=== PATIENT | female | born 1955 | race Caucasian/White ===

== ENCOUNTER 2025-01-26 08:59 | Outpatient (RCR) | payer MEDICARE, SELFPAY ==
[2025-01-26 09:28] VITALS: BP 136/95; PULSE 84; RESP 14; TEMP 36.1
--- NOTE | 2025-01-26 13:03 | HP.PCM_ITS ---
History of Present Illness Date of Service: 01/26/25 Chief Complaint: Left leg wound from trauma History of Wound: 69-year-old white female that fell down her carpeted steps December 25 had developed blood blisters over the left leg medially distal half both legs are swollen but the left leg now is more swollen than the right leg she has been trying to take care of them herself with just antibiotic ointments but then they opened and she is got dark and eschar on them and followed up with her family doctor that referred her here and started her on doxycycline told her to stay on it until seen. She is also diabetic and on insulin and Ozempic and other meds that would not interfere with treatment or healing. [facility] Home Medications ?Medication ?Instructions ?Recorded ?Last Taken ?Type atorvastatin 10 mg tablet 10 mg PO DAILY 01/26/25 Unkn own History blood sugar diagnostic (OneTouch 01/26/25 Unknown His tory Verio test strips) bupropion HCl 300 mg 24 hr tablet, 300 mg PO DAILY Unknown History extended release doxycycline hyclate 100 mg capsule 100 mg PO BID 01/26 Unknown History insulin NPH-regular 70-30 U-100 32 unit subcut .mornin g 01/26/25 Unknown History insulin 100 unit/mL subcutaneous pen (Humulin 70/30 U-100 KwikPen) levothyroxine 100 mcg tablet 100 mcg PO DAILY 01/26/25 Unknown History lisinopril 20 mg tablet 20 mg PO DAILY 01/26/25 Unkn own History semaglutide 1 mg/dose (4 mg/3 mL) 1 mg subcut QWEEK Unknown History subcutaneous pen injector (Ozempic) sertraline 100 mg tablet 200 mg PO DAILY 01/26/25 Unk nown History Allergy/AdvReac Type Severity Reaction Status Date / Time Penicillins Allergy Intermediate PT UNSURE Verified 01/26/25 10:12 OF REACTION ROS Constitutional Constitutional: Reports systems reviewed and no addt'l complaints, except as documented Eyes Eyes: Reports systems reviewed and no addt'l complaints, except as documented ENT HEENT: Reports systems reviewed and no addt'l complaints, except as documented Cardiovascular Cardiovascular: Reports systems reviewed and no addt'l complaints, except as documented Respiratory/Chest Respiratory/Chest: Reports systems reviewed and no addt'l complaints, except as documented Gastrointestinal Gastrointestinal: Reports systems reviewed and no addt'l complaints, except as documented Genitourinary Genitourinary: Reports systems reviewed and no addt'l complaints, except as documented Musculoskeletal Musculoskeletal: Reports systems reviewed and no addt'l complaints, except as documented Integumentary Integumentary: Reports wounds and other Details: 3 areas of wounds medial superior and inferior on the lower left leg. All positive depth with old blood that will have to be debrided out Neurologic Neurologic: Reports systems reviewed and no addt'l complaints, except as documented Psychiatric Psychiatric: Reports systems reviewed and no addt'l complaints, except as documented Endocrine Endocrinology: Reports systems reviewed and no addt'l complaints, except as documented Hematologic/Lymphatic Hematologic/Lymphatic: Reports systems reviewed and no addt'l complaints, except as documented Allergic/Immunologic Allergic/Immunologic: Reports systems reviewed and no addt'l complaints, except as documented Vital Signs Vital Signs Vital Signs: 01/26/25 09:28 Temperature 97 F L Temperature Source Oral Pulse Rate 84 Respiratory Rate 14 Blood Pressure 136/95 H Blood Pressure Mean 108 Blood Pressure Source Monitor Blood Pressure Position Sitting Blood Pressure Location Left Arm Physical Exam Const oriented x3 General Appearance: cooperative Exam Limitations: no limitations HEENT normocephalic Head and Scalp: normal to inspection Face and Sinus: normal facial exam Eyes General Eye: normal appearance of both eyes Neck full ROM General: normal visual inspection Resp normal respiratory effort Effort and Inspection: able to speak in complete sentences Auscultation: clear to auscultation bilaterally Cardio regular rate and regular rhythm Palpation: normal PMI Rate: regular rate Rhythm: regular rhythm GI Palpation: soft and no hepatosplenomegaly Back/Spine Cervical Spine: cervical ROM normal Thoracic Spine / Upper Back: normal to inspection Lumbar Spine / Lower Back: normal to inspection Extremity General Extremity: normal exam except as noted, edema and other findings Other Details: Open wounds x 3 left lower leg Skin no rashes or lesions noted Skin Narrative: Open wounds medial superior and inferior left lower leg with eschar and darkened erythema around the wound base. Legs are extremely edematous left greater than right. Neuro oriented x3 Psych Appearance: grossly normal Speech: normal speech Thought Content: normal thought content Judgement: judgement good Debridement Note Debridement Note Wound debrided: Medial left lower leg wound traumatic Type of Debridement: Excisional debridement Anesthesia Used: 5% Lidocaine Gel Depth: in the subcutaneous layer Percentage of wound debrided: 100 Instrument Used: 7mm curette, #15 blade and Forceps Tissue Removed: Devitalized tissue blood Severity: Fat Layer Exposed Amount of bleeding with debridement: None Bleeding Controlled with: Compression and gauze Patient tolerated procedure: Patient tolerated procedure well Post-Debridement Measurements and Additional Note: Post-Debridement Measurements/Treatment WC - Nurse 1 - General Ulcer Assessment Start: 01/26/25 09:09 Freq: Status: Active Protocol: KITTY Activity Type Activity Date Activity User E-sign Co-sign Detail Recorded Client Recorded Date Recorded By Document 01/26/25 09:28 ML [id number] 01/26/25 09:40 ML 01/26/25 09:28 WC - Today's Visit Information Type of service Initial Visit Arrival Mode Ambulatory Transfer Assistance None Patient Identification Verified (Name & Yes ) Patient Requires Transmission-Based No Precautions Vital Signs Temperature (97.8 F-99.1 F) 97 F L Temperature Source Oral Pulse Rate (60-100) 84 Respiratory Rate (12-18) 14 Respiratory rate source Observation Blood Pressure (90/60-120/80) 136/95 H Blood Pressure Mean 108 Source Monitor Position Sitting Blood Pressure Location Left Arm Pain Scale: 0-10 Numeric Is Patient Pain Free? No Lower Extremity Assessment/ Foot Assessment/ Toe Nail Assessment Left -Polpliteal Pulses Palpable Yes -Popliteal Doppler Multiphasic -Posterior Tibial Doppler Multiphasic -Hair Growth on Legs No -Hair Growth on Toes No -Temperature of Extremity Warm -Capillary Refill Less than 3 Seconds -Other Deformity No -Thick No -Discolored No -Deformed No -Improper Length & Hygeine No WC - Nurse 1 - General Ulcer Measurement Start: 01/26/25 09:09 Freq: Status: Active Protocol: Activity Type Activity Date Activity User E-sign Co-sign Detail Recorded Client Recorded Date Recorded By Document 01/26/25 09:28 ML [id number] 01/26/25 09:40 ML 01/26/25 09:28 Wound Center Nurse 1 LEFT INF LE -Current Size (cm) - Length 1 -Current Size (cm) - Width 1.2 -Current Size (cm) - Depth 0.5 -Total Square Cm 1.2 -Exudate Amt Large -Exudate Type Purulent -Slough/Fibrin Yes -Necrosis Amt Large (67-100%) -Necrotic Tissue Type Eschar -Texture (Renuka-wound Skin Appearance) Assessed -Moisture (Renuka-wound Skin Appearance) Assessed -Color (Renuka-wound Skin Appearance) Assessed -Temperature (Renuka-wound Skin No Abnormality Appearance) (Pt Warm) -Tenderness on Palpation (Renuka-wound No Skin Appearance) -Ulcer Cleansing Soap and Water -Foul Odor after Cleansing Yes -Anesthetic Used 4% Lidocaine Solution LEFT SUP LE -Current Size (cm) - Length 0.7 -Current Size (cm) - Width 1.2 -Current Size (cm) - Depth 0.5 -Total Square Cm 0.84 -Exudate Amt Large -Exudate Type Serous -Wound Margin Distinct, Outline Attached -Slough/Fibrin Yes -Necrosis Amt Large (67-100%) -Necrotic Tissue Type Eschar -Texture (Renuka-wound Skin Appearance) Assessed -Moisture (Renuka-wound Skin Appearance) Assessed -Color (Renuka-wound Skin Appearance) Assessed -Temperature (Renuka-wound Skin No Abnormality Appearance) (Pt Warm) -Tenderness on Palpation (Renuka-wound No Skin Appearance) -Ulcer Cleansing Soap and Water -Foul Odor after Cleansing Yes -Anesthetic Used 4% Lidocaine Solution LEFT MEDIAL CLUSTER LE -Current Size (cm) - Length 3 -Current Size (cm) - Width 3.9 -Current Size (cm) - Depth 0.5 -Total Square Cm 11.7 -Exudate Amt Large -Exudate Type Purulent -Wound Margin Distinct, Outline Attached -Slough/Fibrin Yes -Necrosis Amt Large (67-100%) -Necrotic Tissue Type Eschar -Texture (Renuka-wound Skin Appearance) Assessed -Moisture (Renuka-wound Skin Appearance) Assessed -Color (Renuka-wound Skin Appearance) Assessed -Temperature (Renuka-wound Skin No Abnormality Appearance) (Pt Warm) -Tenderness on Palpation (Renuka-wound No Skin Appearance) -Ulcer Cleansing Soap and Water -Foul Odor after Cleansing Yes -Anesthetic Used 4% Lidocaine Solution Right Calf (cm) 48.5 Right Ankle (cm) 28.5 Left Calf (cm) 51.4 Left Ankle (cm) 32.2 WC - Nurse 2 - General Ulcer CM Notes Start: 01/26/25 09:09 Freq: Status: Active Protocol: Activity Type Activity Date Activity User E-sign Co-sign Detail Recorded Client Recorded Date Recorded By Document 05/28/25 09:54 [facility] [id number] 01/26/25 10:16 [facility] 01/26/25 09:54 Wound Center Nurse 2 LEFT INF LE -Time 09:55 -Correct Patient Yes -Correct Side, Site, Position Yes -Correct Procedure Yes -Procedure Performed Yes -Type of Procedure Debridement -Clinical Debridement Muscle / Fascia -Tissue Removed Muscle,Fascia -Post Debridement (cm) - Length 1 -Post Debridement (cm) - Width 1.4 -Post Debridement (cm) - Depth 1.1 -Total Square (Post) (cm) 1.4 -Area of Debridement (cm) - Length 1 -Area of Debridement (cm) - Width 1.4 -Total Square (Area) (cm) 1.4 -Undermining/Tunneling Yes -Undermining/Tunneling Starts (O'clock 10 ) -Undermining/Tunneling Ends (O'clock) 4 -Maximum Distance (cm) 1.5 -Wound/Ulcer Outcome Not Healed -Ulcer Cleansing Rinsed/ Irrigated with Saline -Bleeding Controlled with Pressure -Treatment Response Procedure Tolerated Well -Debridement - Muscle / Fascia, 1st No 20sq cm LEFT SUP LE -Time 09:55 -Correct Patient Yes -Correct Side, Site, Position Yes -Correct Procedure Yes -Procedure Performed Yes -Type of Procedure Debridement -Clinical Debridement Muscle / Fascia -Tissue Removed Muscle,Fascia -Post Debridement (cm) - Length 0.6 -Post Debridement (cm) - Width 1.5 -Post Debridement (cm) - Depth 0.5 -Total Square (Post) (cm) 0.90 -Area of Debridement (cm) - Length 0.6 -Area of Debridement (cm) - Width 1.5 -Total Square (Area) (cm) 0.90 -Undermining/Tunneling Yes -Undermining/Tunneling Starts (O'clock 11 ) -Undermining/Tunneling Ends (O'clock) 1 -Wound/Ulcer Outcome Not Healed -Ulcer Cleansing Rinsed/ Irrigated with Saline -Foul Odor after Cleansing No -Bioengineered Tissue No -Bleeding Controlled with Pressure -Treatment Response Procedure Tolerated Well -Debridement - Muscle / Fascia, 1st Yes 20sq cm LEFT MEDIAL CLUSTER LE -Time 09:58 -Correct Patient Yes -Correct Side, Site, Position Yes -Correct Procedure Yes -Procedure Performed Yes -Type of Procedure Debridement -Clinical Debridement Muscle / Fascia -Tissue Removed Muscle,Fascia -Post Debridement (cm) - Length 3.3 -Post Debridement (cm) - Width 4.2 -Post Debridement (cm) - Depth 0.4 -Total Square (Post) (cm) 13.86 -Area of Debridement (cm) - Length 3.3 -Area of Debridement (cm) - Width 4.2 -Total Square (Area) (cm) 13.86 -Wound/Ulcer Outcome Not Healed -Bleeding Controlled with Pressure -Treatment Response Procedure Tolerated Well -Debridement - Muscle / Fascia, 1st No 20sq cm Pain Scale: 0-10 Numeric Is Patient Pain Free? Yes WC - Nurse 3 - General Ulcer D/C NN Start: 01/26/25 09:09 Freq: Status: Active Protocol: Activity Type Activity Date Activity User E-sign Co-sign Detail Recorded Client Recorded Date Recorded By Document 01/26/25 10:35 ML [id number] 01/26/25 10:38 ML 01/26/25 10:35 Wound Care Center Nurse 3 LEFT INF LE -Ulcer Cleansing Rinsed/ Irrigated with Saline -Primary Dressing Applied Nugauze, Iodoform 1/4in -Primary Dressing Covered/Secured with Dry Gauze & Roll Gauze, Secured with Tape -Nugauze, Iodoform 1/4 1 LEFT SUP LE -Ulcer Cleansing Rinsed/ Irrigated with Saline -Primary Dressing Applied Nugauze, Iodoform 1/4in -Primary Dressing Covered/Secured with Dry Gauze & Roll Gauze, Secured with Tape -Nugauze, Iodoform 1/4 0 LEFT MEDIAL CLUSTER LE -Ulcer Cleansing Rinsed/ Irrigated with Saline -Other Dressing .25% DAKINS SOAKED GAUZE -Primary Dressing Covered/Secured with Dry Gauze & Roll Gauze, Secured with Tape LLE -Tubular Bandage Double Layer -Size of Tubigrip Used Size F -Size F ($) 2 Pain Scale: 0-10 Numeric Is Patient Pain Free? Yes Additional Wound Wound debrided: Inferior left lower leg wound trauma Type of Debridement: Excisional debridement Anesthesia Used: 5% Lidocaine Gel Depth: Down to and including healthy tissue and in the subcutaneous layer Percentage of wound debrided: 100 Instrument Used: 7mm curette, #15 blade and Forceps Severity: Fat Layer Exposed Amount of bleeding with debridement: Mild Bleeding Controlled with: Compression and gauze Patient tolerated procedure: Patient tolerated procedure well Additional Wound Wound debrided: Superior left lower leg traumatic wound Laterality: Left Type of Debridement: Excisional debridement Anesthesia Used: 5% Lidocaine Gel Depth: Down to and including healthy tissue and in the subcutaneous layer Percentage of wound debrided: 100 Instrument Used: 7mm curette, #15 blade and Forceps Tissue Removed: Devitalized tissue and blood clots Severity: Fat Layer Exposed Amount of bleeding with debridement: Mild Bleeding Controlled with: Compression and gauze Patient tolerated procedure: Patient tolerated procedure well Assessment/Plan Assessment/Plan (1) Traumatic skin ulcer with fat layer exposed: CODE(S): L98.492 - Non-pressure chronic ulcer of skin of other sites with fat layer exposed PLAN: Wash all areas with antibacterial soap and water pack all wounds with Dakin soaked half-inch iodoform gauze in the undermining areas and in the wound itself then cover with ABD and [employer] obtained will call with results as they return Tubigrip double layer to left leg every day (2) Type 2 diabetes mellitus with hyperglycemia: CODE(S): E11.65 - Type 2 diabetes mellitus with hyperglycemia QUALIFIERS: 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
--- NOTE | 2025-01-26 15:09 | WC ---
PHOTO 01/26/25 MARKUS INF
--- NOTE | 2025-01-26 15:11 | WC ---
PHOTO 01/26/25 JESSEE SUP
--- NOTE | 2025-01-26 15:13 | WC ---
PHOTO 01/26/25 MARKUS GAMINO
--- NOTE | 2025-01-31 14:08 | WC ---
antibiotics added from [facility] [employer] - Ruben and flagyl; prescriptions called to [facility] - called pt and left VM to stop the doxycycline and that 2 new antibiotics were called in to her pharmacy. instructed to call if has any questions.
== END 2025-01-29 23:59 | disposition home or self-care (01) ==
LOC: WC 08:59
PROVIDERS: PCP Family Medicine; Referring Provider Family Medicine; Visit Provider Nurse Practitioner
DX: E11.622 Type 2 diabetes mellitus with other skin ulcer (principal); L97.822 Non-pressure chronic ulcer of other part of left lower leg with fat layer exposed; Z79.4 Long term (current) use of insulin; E11.65 Type 2 diabetes mellitus with hyperglycemia; E11.51 Type 2 diabetes mellitus with diabetic peripheral angiopathy without gangrene; M79.89 Other specified soft tissue disorders; Z79.85 Long-term (current) use of injectable non-insulin antidiabetic drugs; Z79.899 Other long term (current) drug therapy; R60.0 Localized edema
CPT/HCPCS: 11043; 87070; 87075; 87077; 87186; 87205; 99204; G0463

== ENCOUNTER 2025-02-23 09:00 | Outpatient (RCR) | payer MEDICARE, SELFPAY ==
[2025-01-30 00:45] VITALS: BP 136/95; PULSE 84; RESP 14; TEMP 36.1
[2025-02-02 09:16] VITALS: BP 120/63; PULSE 80; RESP 18; TEMP 36.1
--- NOTE | 2025-02-02 11:06 | PN.PCM_ITS ---
History of Present Illness Date of Service: 02/02/25 Chief Complaint: Left leg wound from trauma History of Wound: 69-year-old white female that fell down her carpeted steps December 25 had developed blood blisters over the left leg medially distal half both legs are swollen but the left leg now is more swollen than the right leg she has been trying to take care of them herself with just antibiotic ointments but then they opened and she is got dark and eschar on them and followed up with her family doctor that referred her here and started her on doxycycline told her to stay on it until seen. She is also diabetic and on insulin and Ozempic and other meds that would not interfere with treatment or healing. Progress of Wound: Culture came back positive for bacteria and 3 cocci's patient will be starting Cipro and Flagyl only this week. The wounds themselves are very clean they are measuring smaller undermining is almost gone already. We will apply for EpiFix for next weeks and should be on antibiotics for a week she still has 3 wounds the medial superior and inferior. All blood and slough is out of the wound base. We will continue using the quarter inch iodoform soaked with Dakin's and the smaller wounds inferior and superior and Dakin's soaked gauze in the superior in the medial wound. Subjective Subjective Wounds have improved will get patient started on her antibiotic and apply for EpiFix she is doing well patient is agreeable to plan Objective Data Objective Data Surrounding tissue looks less erythematous undermining is almost gone looks very good for infected legs that have not had antibiotics yet. We will add the Dakin's to the soaked iodoform to the wounds and see if that works better for her. Denies any fever chills. Did give her some samples of Alvarado to try that she should probably try some supplements to move this along better to help her fight infection. Vital Signs: Vital Signs Temp Pulse Resp BP 96.9 F L 80 18 120/63 02/02/25 09:16 02/02/25 09:16 02/02/25 09:16 02/02/25 09:16 Lab / Micro Data Attestation: I reviewed the patient's lab results. Debridement Note Debridement Note Wound debrided: Medial left lower leg wound traumatic Type of Debridement: Excisional debridement Anesthesia Used: 5% Lidocaine Gel Depth: in the subcutaneous layer Percentage of wound debrided: 100 Instrument Used: 7mm curette Tissue Removed: Devitalized tissue blood Severity: Fat Layer Exposed Amount of bleeding with debridement: None Bleeding Controlled with: Compression and gauze Patient tolerated procedure: Patient tolerated procedure well Post-Debridement Measurements and Additional Note: Post-Debridement Measurements/Treatment - Nurse 1 - General Ulcer Assessment Start: 02/02/25 09:16 Freq: Status: Active Protocol: KITTY Activity Type Activity Date Activity User E-sign Co-sign Detail Recorded Client Recorded Date Recorded By Document 02/02/25 09:16 DL [id number] 02/02/25 09:30 DL 02/02/25 09:16 - Today's Visit Information Type of service 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 Any new allergies or adverse reactions No Had a fall/change in ADL's that may No increase risk of falls Signs or symptoms of abuse and/or No neglect since last visit Have you been in the hospital since your No last visit? Has dressing in place as prescribed Yes Has compression in place as prescribed No Has offloadiing in place as prescribed N/A Experienced any changes in pain level or No management Pain Scale: 0-10 Numeric Is Patient Pain Free? Yes [facility] Nurse 1 - General Ulcer Measurement Start: 02/02/25 09:16 Freq: Status: Active Protocol: Activity Type Activity Date Activity User E-sign Co-sign Detail Recorded Client Recorded Date Recorded By Document 02/02/25 09:16 DL [id number] 02/02/25 09:30 DL 02/02/25 09:16 Wound Center Nurse 1 LEFT INF LE -Current Size (cm) - Length 1 -Current Size (cm) - Width 1.3 -Current Size (cm) - Depth 0.5 -Total Square Cm 1.3 -Photo Taken Yes -Undermining/Tunneling Starts (O'clock 10 ) -Undermining/Tunneling Ends (O'clock) 4 -Maximum Distance (cm) 0.6 -Exudate Amt Medium -Exudate Type Serosanguineous -Wound Margin Distinct, Outline Attached -Granulation Amt Large (67-100%) -Granulation Quality Red -Necrosis Amt Small (1-33%) -Necrotic Tissue Type Adherent Slough -Structure Exposed N/A -Texture (Renuka-wound Skin Appearance) Scarring -Moisture (Renuka-wound Skin Appearance) No Abnormality -Color (Renuka-wound Skin Appearance) Hemosiderin Staining -Temperature (Renuka-wound Skin No Abnormality Appearance) (Pt Warm) -Ulcer Cleansing Soap and Water -Foul Odor after Cleansing No -Anesthetic Used 4% Lidocaine Solution LEFT SUP LE -Current Size (cm) - Length 1 -Current Size (cm) - Width 1.2 -Current Size (cm) - Depth 0.5 -Total Square Cm 1.2 -Photo Taken Yes -Maximum Distance #2 (cm) 0.2 -Circular Undermining Yes -Granulation Amt Large (67-100%) -Granulation Quality Red -Necrosis Amt Small (1-33%) -Necrotic Tissue Type Adherent Slough -Structure Exposed N/A -Texture (Renuka-wound Skin Appearance) Scarring -Moisture (Renuka-wound Skin Appearance) No Abnormality -Color (Renuka-wound Skin Appearance) Hemosiderin Staining -Temperature (Renuka-wound Skin No Abnormality Appearance) (Pt Warm) -Tenderness on Palpation (Renuka-wound No Skin Appearance) -Ulcer Cleansing Soap and Water -Foul Odor after Cleansing No -Anesthetic Used 4% Lidocaine Solution LEFT MEDIAL CLUSTER LE -Current Size (cm) - Length 3.2 -Current Size (cm) - Width 3.8 -Current Size (cm) - Depth 1 -Total Square Cm 12.16 -Photo Taken Yes -Exudate Amt Medium -Exudate Type Serosanguineous -Wound Margin Distinct, Outline Attached -Granulation Amt Large (67-100%) -Granulation Quality Red -Necrosis Amt Small (1-33%) -Necrotic Tissue Type Adherent Slough -Structure Exposed N/A -Texture (Renuka-wound Skin Appearance) Scarring -Moisture (Renuka-wound Skin Appearance) No Abnormality -Color (Renuka-wound Skin Appearance) Hemosiderin Staining -Temperature (Renuka-wound Skin No Abnormality Appearance) (Pt Warm) -Tenderness on Palpation (Renuka-wound No Skin Appearance) -Ulcer Cleansing Soap and Water -Foul Odor after Cleansing No -Anesthetic Used 4% Lidocaine Solution Left Calf (cm) 46 Left Ankle (cm) 26.5 WC - Nurse 2 - General Ulcer CM Notes Start: 02/02/25 09:16 Freq: Status: Active Protocol: Activity Type Activity Date Activity User E-sign Co-sign Detail Recorded Client Recorded Date Recorded By Document 02/02/25 09:34 [facility] [id number] 02/02/25 09:44 [facility] 02/02/25 09:34 Wound Center Nurse 2 LEFT INF LE -Time 09:34 -Correct Patient Yes -Correct Side, Site, Position Yes -Correct Procedure Yes -Procedure Performed Yes -Type of Procedure Debridement -Clinical Debridement Muscle / Fascia -Tissue Removed Muscle,Fascia -Post Debridement (cm) - Length 1.2 -Post Debridement (cm) - Width 1.3 -Post Debridement (cm) - Depth 0.3 -Total Square (Post) (cm) 1.56 -Area of Debridement (cm) - Length 1.2 -Area of Debridement (cm) - Width 1.3 -Total Square (Area) (cm) 1.56 -Undermining/Tunneling Yes -Undermining/Tunneling Starts (O'clock 10 ) -Undermining/Tunneling Ends (O'clock) 2 -Maximum Distance (cm) 0.9 -Wound/Ulcer Outcome Not Healed -Ulcer Cleansing Rinsed/ Irrigated with Saline -Foul Odor after Cleansing No -Bioengineered Tissue No -Bleeding Controlled with Pressure -Treatment Response Procedure Tolerated Well -Debridement - Muscle / Fascia, 1st No 20sq cm LEFT SUP LE -Time 09:35 -Correct Patient Yes -Correct Side, Site, Position Yes -Correct Procedure Yes -Procedure Performed Yes -Type of Procedure Debridement -Clinical Debridement Muscle / Fascia -Tissue Removed Muscle,Fascia -Post Debridement (cm) - Length 1 -Post Debridement (cm) - Width 1.3 -Post Debridement (cm) - Depth 0.3 -Total Square (Post) (cm) 1.3 -Area of Debridement (cm) - Length 1 -Area of Debridement (cm) - Width 1.3 -Total Square (Area) (cm) 1.3 -Tunneling No -Undermining/Tunneling Yes -Undermining/Tunneling Starts (O'clock 11 ) -Undermining/Tunneling Ends (O'clock) 4 -Maximum Distance (cm) 0.4 -Wound/Ulcer Outcome Not Healed -Ulcer Cleansing Rinsed/ Irrigated with Saline -Foul Odor after Cleansing No -Bioengineered Tissue No -Bleeding Controlled with Pressure -Treatment Response Procedure Tolerated Well -Debridement - Muscle / Fascia, 1st No 20sq cm LEFT MEDIAL CLUSTER LE -Time 09:35 -Correct Patient Yes -Correct Side, Site, Position Yes -Correct Procedure Yes -Procedure Performed Yes -Type of Procedure Debridement -Clinical Debridement Muscle / Fascia -Tissue Removed Muscle,Fascia -Post Debridement (cm) - Length 3.7 -Post Debridement (cm) - Width 4 -Post Debridement (cm) - Depth 0.7 -Total Square (Post) (cm) 14.8 -Area of Debridement (cm) - Length 3.7 -Area of Debridement (cm) - Width 4 -Total Square (Area) (cm) 14.8 -Wound/Ulcer Outcome Not Healed -Ulcer Cleansing Rinsed/ Irrigated with Saline -Foul Odor after Cleansing No -Bioengineered Tissue No -Bleeding Controlled with Pressure -Treatment Response Procedure Tolerated Well -Debridement - Muscle / Fascia, 1st Yes 20sq cm Pain Scale: 0-10 Numeric Is Patient Pain Free? Yes WC - Nurse 3 - General Ulcer D/C NN Start: 02/02/25 09:16 Freq: Status: Active Protocol: Activity Type Activity Date Activity User E-sign Co-sign Detail Recorded Client Recorded Date Recorded By Document 02/02/25 10:02 DL [id number] 02/02/25 10:11 DL 02/02/25 10:02 Wound Care Center Nurse 3 LEFT INF LE -Ulcer Cleansing Soap and Water -Foul Odor after Cleansing No -Primary Dressing Applied Nugauze, Iodoform 1/4in -Other Dressing dakins moist iodoform -Primary Dressing Covered/Secured with Dry Gauze & Roll Gauze, Secured with Tape -Nugauze, Iodoform 1/4 1 LEFT SUP LE -Ulcer Cleansing Soap and Water -Foul Odor after Cleansing No -Other Dressing dakins moist 1/ 4 iodoform -Primary Dressing Covered/Secured with Dry Gauze & Roll Gauze, Secured with Tape LEFT MEDIAL CLUSTER LE -Ulcer Cleansing Soap and Water -Foul Odor after Cleansing No -Other Dressing dakins moistened gauze -Primary Dressing Covered/Secured with Dry Gauze & Roll Gauze, Secured with Tape LLE -Other tubigrip Treatment Response Procedure Tolerated Well Pain Scale: 0-10 Numeric Is Patient Pain Free? Yes WC - Visit Discharge Discharge Condition Stable Ambulatory Status Ambulatory Transportation Private Auto Additional Wound Wound debrided: Inferior left lower leg wound trauma Type of Debridement: Excisional debridement Anesthesia Used: 5% Lidocaine Gel Depth: Down to and including healthy tissue and in the subcutaneous layer Percentage of wound debrided: 100 Instrument Used: 5mm curette Severity: Fat Layer Exposed Amount of bleeding with debridement: Mild Bleeding Controlled with: Compression and gauze Patient tolerated procedure: Patient tolerated procedure well Additional Wound Wound debrided: Superior left lower leg traumatic wound Laterality: Left Type of Debridement: Excisional debridement Anesthesia Used: 5% Lidocaine Gel Depth: Down to and including healthy tissue and in the subcutaneous layer Percentage of wound debrided: 100 Instrument Used: 5mm curette Tissue Removed: Devitalized tissue and blood clots Severity: Fat Layer Exposed Amount of bleeding with debridement: Mild Bleeding Controlled with: Compression and gauze Patient tolerated procedure: Patient tolerated procedure well Assessment/Plan Assessment/Plan (1) Traumatic skin ulcer with fat layer exposed: CODE(S): L98.492 - Non-pressure chronic ulcer of skin of other sites with fat layer exposed PLAN: Wash all areas with antibacterial soap and water pack all wounds with Dakin soaked half-inch iodoform gauze in the undermining areas and in the wound itself then cover with ABD and Steven Cultures positive for bacteria and cocci patient started on Cipro and metronidazole Tubigrip double layer to left leg every day Will apply for EpiFix (2) Type 2 diabetes mellitus with hyperglycemia: CODE(S): E11.65 - Type 2 diabetes mellitus with hyperglycemia QUALIFIERS: Diabetes mellitus intermediate designer insulin use: without residential use Qualified Code(s): E11.65 - Type 2 diabetes mellitus with hyperglycemia (3) Lower extremity edema: CODE(S): R60.0 - Localized edema (4) Peripheral vascular disease: CODE(S): I73.9 - Peripheral vascular disease, unspecified
--- NOTE | 2025-02-02 14:12 | WC ---
PHOTO 02/02/25 LLE SUP/LLE MED/LLE INF
[2025-02-09 09:34] VITALS: BP 128/82; PULSE 92; RESP 18; TEMP 35.5
--- NOTE | 2025-02-09 10:47 | PCM.WC.PN ---
History of Present Illness Date of Service: 02/09/25 Chief Complaint: Left leg wound from trauma History of Wound: 69-year-old white female that fell down her carpeted steps December 25 had developed blood blisters over the left leg medially distal half both legs are swollen but the left leg now is more swollen than the right leg she has been trying to take care of them herself with just antibiotic ointments but then they opened and she is got dark and eschar on them and followed up with her family doctor that referred her here and started her on doxycycline told her to stay on it until seen. She is also diabetic and on insulin and Ozempic and other meds that would not interfere with treatment or healing. Progress of Wound: Culture came back positive for bacteria and 3 cocci's patient will be starting Cipro and Flagyl only this week. The wounds themselves are very clean they are measuring smaller undermining is almost gone already. We applied for EpiFix and was approved. All blood and slough is out of the wound base. We will apply EpiFix #1 and to the medial largest wound and continue with the wet-to-dry Dakin's packing the wounds on the smaller ones inferior and superior wounds. Subjective Subjective Patient is excited to start the epi fix and see how it works. And was instructed to get a cast cover so when she can shower and otherwise she is not to touch the bandage and she understands everything. Objective Data Objective Data Wounds appear card cleaner smaller less depth healing nicely will apply the EpiFix today and see how that works for the week patient is to get a cast cover to protect when showering we will continue packing the other smaller wounds but the larger wound will get the epi fix. Vital Signs: Vital Signs Temp Pulse Resp BP 96 F L 92 18 128/82 H 02/09/25 09:34 02/09/25 09:34 02/09/25 09:34 02/09/25 09:34 Lab / Micro Data Attestation: I reviewed the patient's lab results. Physical Exam Const oriented x3 General Appearance: cooperative Exam Limitations: no limitations HEENT normocephalic Head and Scalp: normal to inspection Face and Sinus: normal facial exam Eyes General Eye: normal appearance of both eyes Neck full ROM General: normal visual inspection Resp normal respiratory effort Effort and Inspection: able to speak in complete sentences Auscultation: clear to auscultation bilaterally Cardio regular rate and regular rhythm Palpation: normal PMI Rate: regular rate Rhythm: regular rhythm GI Palpation: soft and no hepatosplenomegaly Back/Spine Cervical Spine: cervical ROM normal Thoracic Spine / Upper Back: normal to inspection Lumbar Spine / Lower Back: normal to inspection Extremity General Extremity: normal exam except as noted, edema and other findings Other Details: Open wounds x 3 left lower leg Skin no rashes or lesions noted Skin Narrative: Open wounds medial superior and inferior left lower leg with eschar and darkened erythema around the wound base. Legs are extremely edematous left greater than right. Neuro oriented x3 Psych Appearance: grossly normal Speech: normal speech Thought Content: normal thought content Judgement: judgement good Debridement Note Debridement Note Wound debrided: Medial left lower leg wound traumatic Type of Debridement: Excisional debridement Anesthesia Used: 5% Lidocaine Gel Depth: in the subcutaneous layer Percentage of wound debrided: 100 Instrument Used: 7mm curette Tissue Removed: Devitalized tissue blood Severity: Fat Layer Exposed Amount of bleeding with debridement: None Bleeding Controlled with: Compression and gauze Patient tolerated procedure: Patient tolerated procedure well Post-Debridement Measurements and Additional Note: Post-Debridement Measurements/Treatment - Nurse 1 - General Ulcer Assessment Start: 02/02/25 09:16 Freq: Status: Active Protocol: KITTY Activity Type Activity Date Activity User E-sign Co-sign Detail Recorded Client Recorded Date Recorded By Document 02/02/25 09:16 DL [id number] 02/02/25 09:30 DL Document 02/09/25 09:34 RB [id number] 02/09/25 09:39 RB 02/02/25 02/09/25 09:16 09:34 - Today's Visit Information Type of service Follow-up Visit Follow-up Visit (Physician/ALCOHOLIC COUNSELOR (Physician/ALCOHOLIC COUNSELOR ) ) Arrival Mode Ambulatory Ambulatory Transfer Assistance None None Patient Identification Verified (Name & Yes Yes ) Patient Requires Transmission-Based No No Precautions Vital Signs Temperature (97.8 F-99.1 F) 96.9 F L 96 F L Temperature Source Temporal Temporal Pulse Rate (60-100) 80 92 Pulse Location Monitor Monitor Respiratory Rate (12-18) 18 18 Respiratory rate source Observation Observation Blood Pressure (90/60-120/80) 120/63 128/82 H Blood Pressure Mean (mm Hg) 82 97 Source Monitor Monitor Position Semi-Fowlers Blood Pressure Location Left Arm History Since Last Visit- (Skip if this is Patient's initial visit) Have you changed medications since your No No last visit? Any new allergies or adverse reactions No No Had a fall/change in ADL's that may No No increase risk of falls Signs or symptoms of abuse and/or No No neglect since last visit Have you been in the hospital since your No No last visit? Has dressing in place as prescribed Yes Yes Has compression in place as prescribed No Yes Has offloadiing in place as prescribed N/A No Experienced any changes in pain level or No No management Left Footwear Regular Shoe Right Footwear Regular Shoe Pain Scale: 0-10 Numeric Is Patient Pain Free? Yes Yes WC - Nurse 1 - General Ulcer Measurement Start: 02/02/25 09:16 Freq: Status: Active Protocol: Activity Type Activity Date Activity User E-sign Co-sign Detail Recorded Client Recorded Date Recorded By Document 02/02/25 09:16 DL [id number] 02/02/25 09:30 DL Document 02/09/25 09:34 RB [id number] 02/09/25 09:39 RB 02/02/25 02/09/25 09:16 09:34 Wound Center Nurse 1 LEFT INF LE -Combined with other wound No -Current Size (cm) - Length 1 1.1 -Current Size (cm) - Width 1.3 1 -Current Size (cm) - Depth 0.5 0.2 -Total Square Cm 1.3 1.1 -Photo Taken Yes Yes -Tunneling No -Undermining/Tunneling Yes -Undermining/Tunneling Starts (O'clock 10 10 ) -Undermining/Tunneling Ends (O'clock) 4 12 -Maximum Distance (cm) 0.6 0.4 -Circular Undermining No -Exudate Amt Medium Medium -Exudate Type Serosanguineous Serosanguineous -Wound Margin Distinct, Thickened & Outline Rolled Under Attached -Granulation Amt Large (67-100%) Medium (34-66%) -Granulation Quality Red [place] -Slough/Fibrin Yes -Necrosis Amt Small (1-33%) Medium (34-66%) -Necrotic Tissue Type Adherent Slough Adherent Slough -Structure Exposed N/A N/A -Texture (Renuka-wound Skin Appearance) Scarring Assessed -Moisture (Renuka-wound Skin Appearance) No Abnormality Assessed -Color (Renuka-wound Skin Appearance) Hemosiderin Assessed Staining -Temperature (Renuka-wound Skin No Abnormality No Abnormality Appearance) (Pt Warm) (Pt Warm) -Tenderness on Palpation (Renuka-wound No Skin Appearance) -Ulcer Cleansing Soap and Water Wound Cleanser -Foul Odor after Cleansing No No -Anesthetic Used 4% Lidocaine 5% Lidocaine Solution Gel LEFT SUP LE -Combined with other wound No -Current Size (cm) - Length 1 0.8 -Current Size (cm) - Width 1.2 1.2 -Current Size (cm) - Depth 0.5 0.2 -Total Square Cm 1.2 0.96 -Photo Taken Yes Yes -Tunneling No -Undermining/Tunneling No -Maximum Distance #2 (cm) 0.2 -Circular Undermining Yes No -Exudate Amt Medium -Exudate Type Serosanguineous -Wound Margin Thickened & Rolled Under -Granulation Amt Large (67-100%) Medium (34-66%) -Granulation Quality [place] -Slough/Fibrin Yes -Necrosis Amt Small (1-33%) Small (1-33%) -Necrotic Tissue Type Adherent Slough Adherent Slough -Structure Exposed N/A N/A -Texture (Renuka-wound Skin Appearance) Scarring Assessed -Moisture (Renuka-wound Skin Appearance) No Abnormality Assessed -Color (Renuka-wound Skin Appearance) Hemosiderin Assessed Staining -Temperature (Renuka-wound Skin No Abnormality No Abnormality Appearance) (Pt Warm) (Pt Warm) -Tenderness on Palpation (Renuka-wound No No Skin Appearance) -Ulcer Cleansing Soap and Water Wound Cleanser -Foul Odor after Cleansing No No -Anesthetic Used 4% Lidocaine 5% Lidocaine Solution Gel LEFT MEDIAL CLUSTER LE -Combined with other wound No -Current Size (cm) - Length 3.2 3.4 -Current Size (cm) - Width 3.8 3.4 -Current Size (cm) - Depth 1 1 -Total Square Cm 12.16 11.56 -Photo Taken Yes Yes -Tunneling No -Undermining/Tunneling No -Circular Undermining No -Exudate Amt Medium Large -Exudate Type Serosanguineous Serosanguineous -Wound Margin Distinct, Thickened & Outline Rolled Under Attached -Granulation Amt Large (67-100%) Medium (34-66%) -Granulation Quality [place] -Slough/Fibrin Yes -Necrosis Amt Small (1-33%) Small (1-33%) -Necrotic Tissue Type Adherent Slough Adherent Slough -Structure Exposed N/A N/A -Texture (Renuka-wound Skin Appearance) Scarring Assessed -Moisture (Renuka-wound Skin Appearance) No Abnormality Assessed -Color (Renuka-wound Skin Appearance) Hemosiderin Assessed Staining -Temperature (Renuka-wound Skin No Abnormality No Abnormality Appearance) (Pt Warm) (Pt Warm) -Tenderness on Palpation (Renuka-wound No No Skin Appearance) -Ulcer Cleansing Soap and Water Wound Cleanser -Foul Odor after Cleansing No No -Anesthetic Used 4% Lidocaine 5% Lidocaine Solution Gel Lower Limb Edema Present Yes Left Calf (cm) 46 47.2 Left Ankle (cm) 26.5 27.5 WC - Nurse 2 - General Ulcer CM Notes Start: 02/02/25 09:16 Freq: Status: Active Protocol: Activity Type Activity Date Activity User E-sign Co-sign Detail Recorded Client Recorded Date Recorded By Document 02/02/25 09:34 [facility] [id number] 02/02/25 09:44 [facility] Document 02/09/25 09:47 [facility] [id number] 02/09/25 10:05 [facility] 02/02/25 02/09/25 09:34 09:47 Wound Center Nurse 2 LEFT INF LE -Time 09:34 09:49 -Correct Patient Yes Yes -Correct Side, Site, Position Yes Yes -Correct Procedure Yes Yes -Procedure Performed Yes Yes -Type of Procedure Debridement Debridement -Clinical Debridement Muscle / Fascia Muscle / Fascia -Tissue Removed Muscle,Fascia Muscle,Fascia -Post Debridement (cm) - Length 1.2 1.1 -Post Debridement (cm) - Width 1.3 1.3 -Post Debridement (cm) - Depth 0.3 0.3 -Total Square (Post) (cm) 1.56 1.43 -Area of Debridement (cm) - Length 1.2 1.1 -Area of Debridement (cm) - Width 1.3 1.3 -Total Square (Area) (cm) 1.56 1.43 -Tunneling No -Undermining/Tunneling Yes No -Undermining/Tunneling Starts (O'clock 10 ) -Undermining/Tunneling Ends (O'clock) 2 -Maximum Distance (cm) 0.9 -Circular Undermining No -Wound/Ulcer Outcome Not Healed Not Healed -Ulcer Cleansing Rinsed/ Rinsed/ Irrigated with Irrigated with Saline Saline -Foul Odor after Cleansing No No -Bioengineered Tissue No -Bleeding Controlled with Pressure Pressure -Treatment Response Procedure Procedure Tolerated Well Tolerated Well -Debridement - Muscle / Fascia, 1st No Yes 20sq cm LEFT SUP LE -Time 09:52 -Correct Patient Yes Yes -Correct Side, Site, Position Yes Yes -Correct Procedure Yes Yes -Procedure Performed Yes Yes -Type of Procedure Debridement Debridement -Clinical Debridement Muscle / Fascia Muscle / Fascia -Tissue Removed Muscle,Fascia Muscle,Fascia -Post Debridement (cm) - Length 1 1 -Post Debridement (cm) - Width 1.3 1.3 -Post Debridement (cm) - Depth 0.3 0.3 -Total Square (Post) (cm) 1.3 1.3 -Area of Debridement (cm) - Length 1 1 -Area of Debridement (cm) - Width 1.3 1.3 -Total Square (Area) (cm) 1.3 1.3 -Tunneling No No -Undermining/Tunneling Yes No -Undermining/Tunneling Starts (O'clock 11 ) -Undermining/Tunneling Ends (O'clock) 4 -Maximum Distance (cm) 0.4 -Circular Undermining No -Wound/Ulcer Outcome Not Healed Not Healed -Ulcer Cleansing Rinsed/ Rinsed/ Irrigated with Irrigated with Saline Saline -Foul Odor after Cleansing No No -Bioengineered Tissue No No -Bleeding Controlled with Pressure Pressure -Treatment Response Procedure Procedure Tolerated Well Tolerated Well -Debridement - Muscle / Fascia, 1st No No 20sq cm LEFT MEDIAL CLUSTER LE -Time 09:51 -Correct Patient Yes Yes -Correct Side, Site, Position Yes Yes -Correct Procedure Yes Yes -Procedure Performed Yes Yes -Type of Procedure Debridement Debridement -Clinical Debridement Muscle / Fascia Muscle / Fascia -Tissue Removed Muscle,Fascia Muscle,Fascia -Post Debridement (cm) - Length 3.7 3.5 -Post Debridement (cm) - Width 4 3.7 -Post Debridement (cm) - Depth 0.7 1.1 -Total Square (Post) (cm) 14.8 12.95 -Area of Debridement (cm) - Length 3.7 3.5 -Area of Debridement (cm) - Width 4 3.7 -Total Square (Area) (cm) 14.8 12.95 -Tunneling No -Undermining/Tunneling No -Circular Undermining No -Wound/Ulcer Outcome Not Healed Not Healed -Ulcer Cleansing Rinsed/ Rinsed/ Irrigated with Irrigated with Saline Saline -Foul Odor after Cleansing No No -Bioengineered Tissue No No -Type of Bioengineered Tissue Epifix Mesh -Expiration Date 07/02/29 -Product Lot Number [id number] -Percent Used 100 -Lot number of Saline Used [id number] -Bleeding Controlled with Pressure Pressure -Treatment Response Procedure Procedure Tolerated Well Tolerated Well -Debridement - Muscle / Fascia, 1st Yes No 20sq cm -Apply Skin Sub - 1st 25 sq cm - Legs 1 -Epifix Mesh Application 1-4 (per sq 11 cm) Pain Scale: 0-10 Numeric Is Patient Pain Free? Yes Yes WC - Nurse 3 - General Ulcer D/C NN Start: 02/02/25 09:16 Freq: Status: Active Protocol: Activity Type Activity Date Activity User E-sign Co-sign Detail Recorded Client Recorded Date Recorded By Document 02/02/25 10:02 DL [id number] 02/02/25 10:11 DL Document 02/09/25 10:20 DL [id number] 02/09/25 10:22 DL 02/02/25 02/09/25 10:02 10:20 Wound Care Center Nurse 3 LEFT INF LE -Ulcer Cleansing Soap and Water Not Cleansed -Foul Odor after Cleansing No -Primary Dressing Applied Nugauze, Iodoform 1/4in -Other Dressing dakins moist EPIFIX iodoform -Primary Dressing Covered/Secured with Dry Gauze & Dry Gauze & Roll Gauze, Roll Gauze, Secured with Secured with Tape Tape -Other Covering ABD -Nugauze, Iodoform 1/4 1 LEFT SUP LE -Ulcer Cleansing Soap and Water -Foul Odor after Cleansing No No -Other Dressing dakins moist 1/ EPIFIX 4 iodoform -Primary Dressing Covered/Secured with Dry Gauze & Dry Gauze & Roll Gauze, Roll Gauze, Secured with Secured with Tape Tape -Other Covering ABD LEFT MEDIAL CLUSTER LE -Ulcer Cleansing Soap and Water -Foul Odor after Cleansing No -Other Dressing dakins EPIFIX moistened gauze -Primary Dressing Covered/Secured with Dry Gauze & Dry Gauze & Roll Gauze, Roll Gauze, Secured with Secured with Tape Tape -Other Covering ABD LLE -Tubular Bandage Double Layer -Size of Tubigrip Used Size E -Size E ($) 2 -Other tubigrip Treatment Response Procedure Procedure Tolerated Well Tolerated Well Pain Scale: 0-10 Numeric Is Patient Pain Free? Yes Yes WC - Visit Discharge Discharge Condition Stable Stable Ambulatory Status Ambulatory Ambulatory Transportation Private Auto Private Auto Additional Wound Wound debrided: Inferior left lower leg wound trauma Type of Debridement: Excisional debridement Anesthesia Used: 5% Lidocaine Gel Depth: Down to and including healthy tissue and in the subcutaneous layer Percentage of wound debrided: 100 Instrument Used: 5mm curette Severity: Fat Layer Exposed Amount of bleeding with debridement: Mild Bleeding Controlled with: Compression and gauze Patient tolerated procedure: Patient tolerated procedure well Additional Wound Wound debrided: Superior left lower leg traumatic wound Laterality: Left Type of Debridement: Excisional debridement Anesthesia Used: 5% Lidocaine Gel Depth: Down to and including healthy tissue and in the subcutaneous layer Percentage of wound debrided: 100 Instrument Used: 5mm curette Tissue Removed: Devitalized tissue and blood clots Severity: Fat Layer Exposed Amount of bleeding with debridement: Mild Bleeding Controlled with: Compression and gauze Patient tolerated procedure: Patient tolerated procedure well Assessment/Plan Assessment/Plan (1) Traumatic skin ulcer with fat layer exposed: CODE(S): L98.492 - Non-pressure chronic ulcer of skin of other sites with fat layer exposed PLAN: Wash only the inferior and superior wounds with antibacterial soap and water pack all wounds with Dakin soaked half-inch iodoform gauze in the undermining areas and in the wound itself then cover with ABD and Steven Continue taking Cipro and metronidazole Tubigrip double layer to left leg every day #1 EpiFix was applied to the medial wound base and covered with wound veil and Steri-Strips and a foam dressing covered. Patient was instructed to get a cast Cover to take showers. Patient was instructed not to touch any of the Steri-Strips or lower she is allowed to change the outside dressing if he gets soiled or wet. Patient instructed to follow-up in 1 week (2) Type 2 diabetes mellitus with hyperglycemia: CODE(S): E11.65 - Type 2 diabetes mellitus with hyperglycemia QUALIFIERS: Diabetes mellitus engraved roller inspector insulin use: without engraved roller inspector use Qualified Code(s): E11.65 - Type 2 diabetes mellitus with hyperglycemia (3) Lower extremity edema: CODE(S): R60.0 - Localized edema (4) Peripheral vascular disease: CODE(S): I73.9 - Peripheral vascular disease, unspecified
--- NOTE | 2025-02-09 14:06 | WC ---
PHOTO 02/07/25 LLE SUP/LLE INF
--- NOTE | 2025-02-09 14:10 | WC ---
PHOTO 02/07/25 Skinny ESCALANTE
[2025-02-16 09:10] VITALS: BP 130/57; PULSE 92; RESP 16; TEMP 36.2
--- NOTE | 2025-02-16 10:40 | PN.PCM_ITS ---
History of Present Illness Date of Service: 02/16/25 Chief Complaint: Left leg wound from trauma History of Wound: 69-year-old white female that fell down her carpeted steps December 25 had developed blood blisters over the left leg medially distal half both legs are swollen but the left leg now is more swollen than the right leg she has been trying to take care of them herself with just antibiotic ointments but then they opened and she is got dark and eschar on them and followed up with her family doctor that referred her here and started her on doxycycline told her to stay on it until seen. She is also diabetic and on insulin and Ozempic and other meds that would not interfere with treatment or healing. Progress of Wound: 1. Epi was applied and removed today and it looks phenomenal the depth is much improved. Culture came back positive for bacteria and 3 cocci's patient taking Cipro and Flagyl . The wounds themselves are very clean they are measuring smaller undermining is gone already. We we will apply #2 EpiFix . Subjective Subjective Patient is very pleased with outcomes Objective Data Objective Data So epi fix #1 is been a very successful the mounds of new tissue growing in that area is of the medial wound is very impressive. Also it is covering the fat layer that was exposed to Getting discolored. The other side wounds have no undermining or doing very well with her dressing changes. Patient is tolerant of her medications and is finishing them up. There is no sign of infection and the surrounding tissue is just flesh color and no redness or swelling noted Vital Signs: Vital Signs Temp Pulse Resp BP 97.2 F L 92 16 130/57 H 02/16/25 09:10 02/16/25 09:10 02/16/25 09:10 02/16/25 09:10 Physical Exam Const oriented x3 General Appearance: cooperative Exam Limitations: no limitations HEENT normocephalic Head and Scalp: normal to inspection Face and Sinus: normal facial exam Eyes General Eye: normal appearance of both eyes Neck full ROM General: normal visual inspection Resp normal respiratory effort Effort and Inspection: able to speak in complete sentences Auscultation: clear to auscultation bilaterally Cardio regular rate and regular rhythm Palpation: normal PMI Rate: regular rate Rhythm: regular rhythm GI Palpation: soft and no hepatosplenomegaly Back/Spine Cervical Spine: cervical ROM normal Thoracic Spine / Upper Back: normal to inspection Lumbar Spine / Lower Back: normal to inspection Extremity General Extremity: normal exam except as noted, edema and other findings Other Details: Open wounds x 3 left lower leg Skin no rashes or lesions noted Skin Narrative: Open wounds medial superior and inferior left lower leg with eschar and darkened erythema around the wound base. Legs are extremely edematous left greater than right. Neuro oriented x3 Psych Appearance: grossly normal Speech: normal speech Thought Content: normal thought content Judgement: judgement good Debridement Note Debridement Note Wound debrided: Medial left lower leg wound traumatic Type of Debridement: Excisional debridement Anesthesia Used: 5% Lidocaine Gel Depth: in the subcutaneous layer Percentage of wound debrided: 100 Instrument Used: 5mm curette Tissue Removed: Devitalized tissue blood Severity: Fat Layer Exposed Amount of bleeding with debridement: None Bleeding Controlled with: Compression and gauze Patient tolerated procedure: Patient tolerated procedure well Post-Debridement Measurements and Additional Note: Post-Debridement Measurements/Treatment - Nurse 1 - General Ulcer Assessment Start: 02/02/25 09:16 Freq: Status: Active Protocol: KITTY Activity Type Activity Date Activity User E-sign Co-sign Detail Recorded Client Recorded Date Recorded By Document 02/02/25 09:16 DL [id number] 02/02/25 09:30 DL Document 02/09/25 09:34 RB [id number] 02/09/25 09:39 RB Document 02/16/25 09:10 DL [id number] 02/16/25 09:20 DL 02/02/25 02/09/25 02/16/25 09:16 09:34 09:10 - Today's Visit Information Type of service Follow-up Visit Follow-up Visit Follow-up Visit (Physician/CONCRETE MIXER (Physician/CONCRETE MIXER (Physician/CONCRETE MIXER ) ) ) Arrival Mode Ambulatory Ambulatory Ambulatory Transfer Assistance None None None Patient Identification Verified (Name & Yes Yes Yes ) Patient Requires Transmission-Based No No No Precautions Vital Signs Temperature (97.8 F-99.1 F) 96.9 F L 96 F L 97.2 F L Temperature Source Temporal Temporal Temporal Pulse Rate (60-100) 80 92 92 Pulse Location Monitor Monitor Monitor Respiratory Rate (12-18) 18 18 16 Respiratory rate source Observation Observation Observation Blood Pressure (90/60-120/80) 120/63 128/82 H 130/57 H Blood Pressure Mean (mm Hg) 82 97 81 Source Monitor Monitor Monitor Position Semi-Fowlers Blood Pressure Location Left Arm History Since Last Visit- (Skip if this is Patient's initial visit) Have you changed medications since your No No No last visit? Any new allergies or adverse reactions No No No Had a fall/change in ADL's that may No No No increase risk of falls Signs or symptoms of abuse and/or No No No neglect since last visit Have you been in the hospital since your No No No last visit? Has dressing in place as prescribed Yes Yes Yes Has compression in place as prescribed No Yes Yes Has offloadiing in place as prescribed N/A No N/A Experienced any changes in pain level or No No No management Left Footwear Regular Shoe Right Footwear Regular Shoe Pain Scale: 0-10 Numeric Is Patient Pain Free? Yes Yes Yes WC - Nurse 1 - General Ulcer Measurement Start: 02/02/25 09:16 Freq: Status: Active Protocol: Activity Type Activity Date Activity User E-sign Co-sign Detail Recorded Client Recorded Date Recorded By Document 02/02/25 09:16 DL [id number] 02/02/25 09:30 DL Document 02/09/25 09:34 RB [id number] 02/09/25 09:39 RB Document 02/16/25 09:10 DL [id number] 02/16/25 09:20 DL 02/02/25 02/09/25 02/16/25 09:16 09:34 09:10 Wound Center Nurse 1 LEFT INF LE -Combined with other wound No -Current Size (cm) - Length 1 1.1 1 -Current Size (cm) - Width 1.3 1 1.4 -Current Size (cm) - Depth 0.5 0.2 0.1 -Total Square Cm 1.3 1.1 1.4 -Photo Taken Yes Yes Yes -Tunneling No -Undermining/Tunneling Yes -Undermining/Tunneling Starts (O'clock 10 10 ) -Undermining/Tunneling Ends (O'clock) 4 12 -Maximum Distance (cm) 0.6 0.4 -Circular Undermining No -Exudate Amt Medium Medium Medium -Exudate Type Serosanguineous Serosanguineous Serosanguineous -Wound Margin Distinct, Thickened & Distinct, Outline Rolled Under Outline Attached Attached -Granulation Amt Large (67-100%) Medium (34-66%) Large (67-100%) -Granulation Quality Red Fallis Red -Slough/Fibrin Yes -Necrosis Amt Small (1-33%) Medium (34-66%) Small (1-33%) -Necrotic Tissue Type Adherent Slough Adherent Slough Adherent Slough -Structure Exposed N/A N/A N/A -Texture (Renuka-wound Skin Appearance) Scarring Assessed Scarring -Moisture (Renuka-wound Skin Appearance) No Abnormality Assessed Maceration -Color (Renuka-wound Skin Appearance) Hemosiderin Assessed Hemosiderin Staining Staining -Temperature (Renuka-wound Skin No Abnormality No Abnormality No Abnormality Appearance) (Pt Warm) (Pt Warm) (Pt Warm) -Tenderness on Palpation (Renuka-wound No No Skin Appearance) -Ulcer Cleansing Soap and Water Wound Cleanser Soap and Water -Foul Odor after Cleansing No No No -Anesthetic Used 4% Lidocaine 5% Lidocaine 5% Lidocaine Solution Gel Gel LEFT SUP LE -Combined with other wound No -Current Size (cm) - Length 1 0.8 0.9 -Current Size (cm) - Width 1.2 1.2 1.3 -Current Size (cm) - Depth 0.5 0.2 0.1 -Total Square Cm 1.2 0.96 1.17 -Photo Taken Yes Yes Yes -Tunneling No -Undermining/Tunneling No -Maximum Distance #2 (cm) 0.2 -Circular Undermining Yes No -Exudate Amt Medium Medium -Exudate Type Serosanguineous Serosanguineous -Wound Margin Thickened & Distinct, Rolled Under Outline Attached -Granulation Amt Large (67-100%) Medium (34-66%) Medium (34-66%) -Granulation Quality Red Fallis Red -Slough/Fibrin Yes -Necrosis Amt Small (1-33%) Small (1-33%) Small (1-33%) -Necrotic Tissue Type Adherent Slough Adherent Slough Adherent Slough -Structure Exposed N/A N/A N/A -Texture (Renuka-wound Skin Appearance) Scarring Assessed Scarring -Moisture (Renuka-wound Skin Appearance) No Abnormality Assessed Maceration -Color (Renuka-wound Skin Appearance) Hemosiderin Assessed Hemosiderin Staining Staining -Temperature (Renuka-wound Skin No Abnormality No Abnormality No Abnormality Appearance) (Pt Warm) (Pt Warm) (Pt Warm) -Tenderness on Palpation (Renuka-wound No No Skin Appearance) -Ulcer Cleansing Soap and Water Wound Cleanser Soap and Water -Foul Odor after Cleansing No No No -Anesthetic Used 4% Lidocaine 5% Lidocaine 5% Lidocaine Solution Gel Gel LEFT MEDIAL CLUSTER LE -Combined with other wound No -Current Size (cm) - Length 3.2 3.4 3 -Current Size (cm) - Width 3.8 3.4 3.2 -Current Size (cm) - Depth 1 1 0.9 -Total Square Cm 12.16 11.56 9.6 -Photo Taken Yes Yes Yes -Tunneling No -Undermining/Tunneling No -Circular Undermining No -Exudate Amt Medium Large Medium -Exudate Type Serosanguineous Serosanguineous Serosanguineous -Wound Margin Distinct, Thickened & Distinct, Outline Rolled Under Outline Attached Attached -Granulation Amt Large (67-100%) Medium (34-66%) Large (67-100%) -Granulation Quality Red Fallis Red -Slough/Fibrin Yes -Necrosis Amt Small (1-33%) Small (1-33%) None Present (0 %) -Necrotic Tissue Type Adherent Slough Adherent Slough -Structure Exposed N/A N/A N/A -Texture (Renuka-wound Skin Appearance) Scarring Assessed Scarring -Moisture (Renuka-wound Skin Appearance) No Abnormality Assessed Maceration -Color (Renuka-wound Skin Appearance) Hemosiderin Assessed Hemosiderin Staining Staining -Temperature (Renuka-wound Skin No Abnormality No Abnormality No Abnormality Appearance) (Pt Warm) (Pt Warm) (Pt Warm) -Tenderness on Palpation (Renuka-wound No No No Skin Appearance) -Ulcer Cleansing Soap and Water Wound Cleanser Soap and Water -Foul Odor after Cleansing No No No -Anesthetic Used 4% Lidocaine 5% Lidocaine 5% Lidocaine Solution Gel Gel Lower Limb Edema Present Yes Left Calf (cm) 46 47.2 46 Left Ankle (cm) 26.5 27.5 26.5 WC - Nurse 2 - General Ulcer CM Notes Start: 02/02/25 09:16 Freq: Status: Active Protocol: Activity Type Activity Date Activity User E-sign Co-sign Detail Recorded Client Recorded Date Recorded By Document 02/02/25 09:34 [facility] [id number] 02/02/25 09:44 [facility] Document 02/09/25 09:47 [facility] [id number] 02/09/25 10:05 [facility] Document 02/16/25 09:28 [facility] [id number] 02/16/25 09:42 [facility] 02/02/25 02/09/25 02/16/25 09:34 09:47 09:28 Wound Center Nurse 2 LEFT INF LE -Time 09:34 09:49 09:28 -Correct Patient Yes Yes Yes -Correct Side, Site, Position Yes Yes Yes -Correct Procedure Yes Yes Yes -Procedure Performed Yes Yes Yes -Type of Procedure Debridement Debridement Debridement -Clinical Debridement Muscle / Fascia Muscle / Fascia Subcutaneous -Tissue Removed Muscle,Fascia Muscle,Fascia Subcutaneous -Post Debridement (cm) - Length 1.2 1.1 1 -Post Debridement (cm) - Width 1.3 1.3 1.4 -Post Debridement (cm) - Depth 0.3 0.3 0.2 -Total Square (Post) (cm) 1.56 1.43 1.4 -Area of Debridement (cm) - Length 1.2 1.1 1 -Area of Debridement (cm) - Width 1.3 1.3 1.4 -Total Square (Area) (cm) 1.56 1.43 1.4 -Tunneling No No -Undermining/Tunneling Yes No No -Undermining/Tunneling Starts (O'clock 10 ) -Undermining/Tunneling Ends (O'clock) 2 -Maximum Distance (cm) 0.9 -Circular Undermining No No -Wound/Ulcer Outcome Not Healed Not Healed Not Healed -Ulcer Cleansing Rinsed/ Rinsed/ Rinsed/ Irrigated with Irrigated with Irrigated with Saline Saline Saline -Foul Odor after Cleansing No No No -Bioengineered Tissue No No -Bleeding Controlled with Pressure Pressure Pressure -Treatment Response Procedure Procedure Procedure Tolerated Well Tolerated Well Tolerated Well -Debridement - Subq, 1st 20sq cm Yes -Debridement - Muscle / Fascia, 1st No Yes 20sq cm LEFT SUP LE -Time 09:35 09:52 09:29 -Correct Patient Yes Yes Yes -Correct Side, Site, Position Yes Yes Yes -Correct Procedure Yes Yes Yes -Procedure Performed Yes Yes Yes -Type of Procedure Debridement Debridement Debridement -Clinical Debridement Muscle / Fascia Muscle / Fascia Subcutaneous -Tissue Removed Muscle,Fascia Muscle,Fascia Subcutaneous -Post Debridement (cm) - Length 1 1 1 -Post Debridement (cm) - Width 1.3 1.3 1.3 -Post Debridement (cm) - Depth 0.3 0.3 0.2 -Total Square (Post) (cm) 1.3 1.3 1.3 -Area of Debridement (cm) - Length 1 1 1 -Area of Debridement (cm) - Width 1.3 1.3 1.3 -Total Square (Area) (cm) 1.3 1.3 1.3 -Tunneling No No No -Undermining/Tunneling Yes No No -Undermining/Tunneling Starts (O'clock 11 ) -Undermining/Tunneling Ends (O'clock) 4 -Maximum Distance (cm) 0.4 -Circular Undermining No No -Wound/Ulcer Outcome Not Healed Not Healed Not Healed -Ulcer Cleansing Rinsed/ Rinsed/ Rinsed/ Irrigated with Irrigated with Irrigated with Saline Saline Saline -Foul Odor after Cleansing No No No -Bioengineered Tissue No No No -Bleeding Controlled with Pressure Pressure Pressure -Treatment Response Procedure Procedure Procedure Tolerated Well Tolerated Well Tolerated Well -Debridement - Subq, 1st 20sq cm No -Debridement - Muscle / Fascia, 1st No No 20sq cm LEFT MEDIAL CLUSTER LE -Time 09:35 09:51 09:29 -Correct Patient Yes Yes Yes -Correct Side, Site, Position Yes Yes Yes -Correct Procedure Yes Yes Yes -Procedure Performed Yes Yes Yes -Type of Procedure Debridement Debridement Debridement -Clinical Debridement Muscle / Fascia Muscle / Fascia Muscle / Fascia -Tissue Removed Muscle,Fascia Muscle,Fascia Muscle,Fascia -Post Debridement (cm) - Length 3.7 3.5 3 -Post Debridement (cm) - Width 4 3.7 3.4 -Post Debridement (cm) - Depth 0.7 1.1 1.5 -Total Square (Post) (cm) 14.8 12.95 10.2 -Area of Debridement (cm) - Length 3.7 3.5 3 -Area of Debridement (cm) - Width 4 3.7 3.4 -Total Square (Area) (cm) 14.8 12.95 10.2 -Tunneling No No -Undermining/Tunneling No No -Circular Undermining No No -Wound/Ulcer Outcome Not Healed Not Healed Not Healed -Ulcer Cleansing Rinsed/ Rinsed/ Rinsed/ Irrigated with Irrigated with Irrigated with Saline Saline Saline -Foul Odor after Cleansing No No No -Bioengineered Tissue No No Yes -Type of Bioengineered Tissue Epifix Mesh Epifix Mesh -Expiration Date 07/02/29 07/02/29 -Product Lot Number [id number] -Percent Used 100 100 -Lot number of Saline Used [id number] -Bleeding Controlled with Pressure Pressure Pressure -Treatment Response Procedure Procedure Procedure Tolerated Well Tolerated Well Tolerated Well -Debridement - Muscle / Fascia, 1st Yes No No 20sq cm -Apply Skin Sub - 1st 25 sq cm - Legs 1 1 -Epifix Mesh Application 1-4 (per sq 11 11 cm) Pain Scale: 0-10 Numeric Is Patient Pain Free? Yes Yes Yes WC - Nurse 3 - General Ulcer D/C NN Start: 02/02/25 09:16 Freq: Status: Active Protocol: Activity Type Activity Date Activity User E-sign Co-sign Detail Recorded Client Recorded Date Recorded By Document 02/02/25 10:02 DL [id number] 02/02/25 10:11 DL Document 02/09/25 10:20 DL [id number] 02/09/25 10:22 DL Document 02/16/25 09:59 DL [id number] 02/16/25 10:00 DL 02/02/25 02/09/25 02/16/25 10:02 10:20 09:59 Wound Care Center Nurse 3 LEFT INF LE -Ulcer Cleansing Soap and Water Not Cleansed -Foul Odor after Cleansing No No -Primary Dressing Applied Nugauze, Aquacel Extra Iodoform 1/4in -Other Dressing dakins moist EPIFIX ABD iodoform -Primary Dressing Covered/Secured with Dry Gauze & Dry Gauze & Dry Gauze & Roll Gauze, Roll Gauze, Roll Gauze, Secured with Secured with Secured with Tape Tape Tape -Other Covering ABD -Aquacel Extra 1 -Nugauze, Iodoform 1/4 1 LEFT SUP LE -Ulcer Cleansing Soap and Water -Foul Odor after Cleansing No No No -Other Dressing dakins moist 1/ EPIFIX aquacel ex/ ABD 4 iodoform -Primary Dressing Covered/Secured with Dry Gauze & Dry Gauze & Dry Gauze & Roll Gauze, Roll Gauze, Roll Gauze, Secured with Secured with Secured with Tape Tape Tape -Other Covering ABD LEFT MEDIAL CLUSTER LE -Ulcer Cleansing Soap and Water Not Cleansed -Foul Odor after Cleansing No -Other Dressing dakins EPIFIX aquacel ex/ABD moistened gauze -Primary Dressing Covered/Secured with Dry Gauze & Dry Gauze & Dry Gauze & Roll Gauze, Roll Gauze, Roll Gauze, Secured with Secured with Secured with Tape Tape Tape -Other Covering ABD LLE -Tubular Bandage Double Layer Double Layer -Size of Tubigrip Used Size E Size E -Size E ($) 2 2 -Other tubigrip Treatment Response Procedure Procedure Tolerated Well Tolerated Well Pain Scale: 0-10 Numeric Is Patient Pain Free? Yes Yes Yes WC - Visit Discharge Discharge Condition Stable Stable Stable Ambulatory Status Ambulatory Ambulatory Ambulatory,Cane Transportation Private Auto Private Auto Private Auto Additional Wound Wound debrided: Inferior left lower leg wound trauma Type of Debridement: Excisional debridement Anesthesia Used: 5% Lidocaine Gel Depth: Down to and including healthy tissue and in the subcutaneous layer Percentage of wound debrided: 100 Tissue Removed: Fibrin Severity: Fat Layer Exposed Amount of bleeding with debridement: Mild Bleeding Controlled with: Compression and gauze Patient tolerated procedure: Patient tolerated procedure well Additional Wound Wound debrided: Superior left lower leg traumatic wound Laterality: Left Type of Debridement: Excisional debridement Anesthesia Used: 5% Lidocaine Gel Depth: Down to and including healthy tissue and in the subcutaneous layer Percentage of wound debrided: 100 Instrument Used: 5mm curette Tissue Removed: Fibrin Severity: Fat Layer Exposed Amount of bleeding with debridement: Mild Bleeding Controlled with: Compression and gauze Patient tolerated procedure: Patient tolerated procedure well Assessment/Plan Assessment/Plan (1) Traumatic skin ulcer with fat layer exposed: CODE(S): L98.492 - Non-pressure chronic ulcer of skin of other sites with fat layer exposed PLAN: Wash only the inferior and superior wounds with antibacterial soap and water pack all wounds with Dakin soaked half-inch iodoform gauze in the wound itself then cover with ABD and Steven Continue taking Cipro and metronidazole Tubigrip double layer to left leg every day #2 EpiFix was applied to the medial wound base and covered with wound veil and Steri-Strips and a foam dressing covered. Patient was instructed to get a cast Cover to take showers. Patient was instructed not to touch any of the Steri- Strips or lower she is allowed to change the outside dressing if he gets soiled or wet. Patient instructed to follow-up in 1 week (2) Type 2 diabetes mellitus with hyperglycemia: CODE(S): E11.65 - Type 2 diabetes mellitus with hyperglycemia QUALIFIERS: Diabetes mellitus long term care social worker insulin use: without long term care social worker use Qualified Code(s): E11.65 - Type 2 diabetes mellitus with hyperglycemia (3) Lower extremity edema: CODE(S): R60.0 - Localized edema (4) Peripheral vascular disease: CODE(S): I73.9 - Peripheral vascular disease, unspecified
--- NOTE | 2025-02-17 09:37 | WC ---
PHOTO 02/16/25 MARKUS GAMINO
--- NOTE | 2025-02-17 09:41 | WC ---
PHOTO 02/16/25 JESSEE SUP
[2025-02-23 09:18] VITALS: BP 137/71; PULSE 79; RESP 18; TEMP 36.2
--- NOTE | 2025-02-23 11:10 | PCM.WC.PN ---
History of Present Illness Date of Service: 02/23/25 Chief Complaint: Left leg wound from trauma History of Wound: 69-year-old white female that fell down her carpeted steps December 25 had developed blood blisters over the left leg medially distal half both legs are swollen but the left leg now is more swollen than the right leg she has been trying to take care of them herself with just antibiotic ointments but then they opened and she is got dark and eschar on them and followed up with her family doctor that referred her here and started her on doxycycline told her to stay on it until seen. She is also diabetic and on insulin and Ozempic and other meds that would not interfere with treatment or healing. Progress of Wound: 1. Epi was applied and it looks phenomenal the depth is much improved. Culture came back positive for bacteria and 3 cocci's patient taking Cipro and Flagyl . The wounds themselves are very clean they are measuring smaller undermining is gone already. We we will apply #3 EpiFix . Subjective Subjective Patient took pictures and is very pleased with outcome so far Objective Data Objective Data The medial wound is more shallow the fat layer has been covered mounds of new tissue are obvious the edges are flat and there is no rolling of the edges at all looks very nice filling and and its about half the depth it was when we started. The inferior superior wounds are both healing nicely and are flat just needs skin to cover basically. All undermining is gone the skin is nice and supple around the wound and is flesh-colored is not erythematous at all. Vital Signs: Vital Signs Temp Pulse Resp BP 97.2 F L 79 18 137/71 H 02/23/25 09:18 02/23/25 09:18 02/23/25 09:18 02/23/25 09:18 Lab / Micro Data Attestation: I reviewed the patient's lab results. Physical Exam Const oriented x3 General Appearance: cooperative Exam Limitations: no limitations HEENT normocephalic Head and Scalp: normal to inspection Face and Sinus: normal facial exam Eyes General Eye: normal appearance of both eyes Neck full ROM General: normal visual inspection Resp normal respiratory effort Effort and Inspection: able to speak in complete sentences Auscultation: clear to auscultation bilaterally Cardio regular rate and regular rhythm Palpation: normal PMI Rate: regular rate Rhythm: regular rhythm GI Palpation: soft and no hepatosplenomegaly Back/Spine Cervical Spine: cervical ROM normal Thoracic Spine / Upper Back: normal to inspection Lumbar Spine / Lower Back: normal to inspection Extremity General Extremity: normal exam except as noted, edema and other findings Other Details: Open wounds x 3 left lower leg Skin no rashes or lesions noted Skin Narrative: Open wounds medial superior and inferior left lower leg with eschar and darkened erythema around the wound base. Legs are extremely edematous left greater than right. Neuro oriented x3 Psych Appearance: grossly normal Speech: normal speech Thought Content: normal thought content Judgement: judgement good Debridement Note Debridement Note Wound debrided: Medial left lower leg wound traumatic Type of Debridement: Excisional debridement Anesthesia Used: 5% Lidocaine Gel Depth: in the subcutaneous layer Percentage of wound debrided: 100 Instrument Used: 5mm curette Tissue Removed: Fibrin Severity: Fat Layer Exposed Amount of bleeding with debridement: None Bleeding Controlled with: Compression and gauze Patient tolerated procedure: Patient tolerated procedure well Post-Debridement Measurements and Additional Note: Post-Debridement Measurements/Treatment - Nurse 1 - General Ulcer Assessment Start: 02/02/25 09:16 Freq: Status: Active Protocol: .WeOweDOMINIC Activity Type Activity Date Activity User E-sign Co-sign Detail Recorded Client Recorded Date Recorded By Document 02/02/25 09:16 DL [id number] 02/02/25 09:30 DL Document 02/09/25 09:34 RB [id number] 02/09/25 09:39 RB Document 02/16/25 09:10 DL [id number] 02/16/25 09:20 DL Document 02/23/25 09:18 DL [id number] 02/23/25 09:28 DL 02/02/25 02/09/25 02/16/25 09:16 09:34 09:10 - Today's Visit Information Type of service Follow-up Visit Follow-up Visit Follow-up Visit (Physician/INDUSTRIAL EDUCATION INSTRUCTOR (Physician/INDUSTRIAL EDUCATION INSTRUCTOR (Physician/INDUSTRIAL EDUCATION INSTRUCTOR ) ) ) Arrival Mode Ambulatory Ambulatory Ambulatory Transfer Assistance None None None Patient Identification Verified (Name & Yes Yes Yes ) Patient Requires Transmission-Based No No No Precautions Vital Signs Temperature (97.8 F-99.1 F) 96.9 F L 96 F L 97.2 F L Temperature Source Temporal Temporal Temporal Pulse Rate (60-100) 80 92 92 Pulse Location Monitor Monitor Monitor Respiratory Rate (12-18) 18 18 16 Respiratory rate source Observation Observation Observation Blood Pressure (90/60-120/80) 120/63 128/82 H 130/57 H Blood Pressure Mean (mm Hg) 82 97 81 Source Monitor Monitor Monitor Position Semi-Fowlers Blood Pressure Location Left Arm History Since Last Visit- (Skip if this is Patient's initial visit) Have you changed medications since your No No No last visit? Any new allergies or adverse reactions No No No Had a fall/change in ADL's that may No No No increase risk of falls Signs or symptoms of abuse and/or No No No neglect since last visit Have you been in the hospital since your No No No last visit? Has dressing in place as prescribed Yes Yes Yes Has compression in place as prescribed No Yes Yes Has offloadiing in place as prescribed N/A No N/A Experienced any changes in pain level or No No No management Left Footwear Regular Shoe Right Footwear Regular Shoe Pain Scale: 0-10 Numeric Is Patient Pain Free? Yes Yes Yes 02/23/25 09:18 WC - Today's Visit Information Type of service Follow-up Visit (Physician/INDUSTRIAL EDUCATION INSTRUCTOR ) Arrival Mode Ambulatory Transfer Assistance None Patient Identification Verified (Name & Yes ) Patient Requires Transmission-Based No Precautions Vital Signs Temperature (97.8 F-99.1 F) 97.2 F L Temperature Source Temporal Pulse Rate (60-100) 79 Pulse Location Monitor Respiratory Rate (12-18) 18 Respiratory rate source Observation Blood Pressure (90/60-120/80) 137/71 H Blood Pressure Mean (mm Hg) 93 Source Monitor Position Blood Pressure Location History Since Last Visit- (Skip if this is Patient's initial visit) Have you changed medications since your No last visit? Any new allergies or adverse reactions No Had a fall/change in ADL's that may No increase risk of falls Signs or symptoms of abuse and/or No neglect since last visit Have you been in the hospital since your No last visit? Has dressing in place as prescribed Yes Has compression in place as prescribed Yes Has offloadiing in place as prescribed N/A Experienced any changes in pain level or No management Left Footwear Right Footwear Pain Scale: 0-10 Numeric Is Patient Pain Free? Yes WC - Nurse 1 - General Ulcer Measurement Start: 02/02/25 09:16 Freq: Status: Active Protocol: Activity Type Activity Date Activity User E-sign Co-sign Detail Recorded Client Recorded Date Recorded By Document 02/02/25 09:16 DL [id number] 02/02/25 09:30 DL Document 02/09/25 09:34 RB [id number] 02/09/25 09:39 RB Document 02/16/25 09:10 DL [id number] 02/16/25 09:20 DL Document 02/23/25 09:18 DL [id number] 02/23/25 09:28 DL 02/02/25 02/09/25 02/16/25 09:16 09:34 09:10 Wound Center Nurse 1 LEFT INF LE -Combined with other wound No -Current Size (cm) - Length 1 1.1 1 -Current Size (cm) - Width 1.3 1 1.4 -Current Size (cm) - Depth 0.5 0.2 0.1 -Total Square Cm 1.3 1.1 1.4 -Photo Taken Yes Yes Yes -Tunneling No -Undermining/Tunneling Yes -Undermining/Tunneling Starts (O'clock 10 10 ) -Undermining/Tunneling Ends (O'clock) 4 12 -Maximum Distance (cm) 0.6 0.4 -Circular Undermining No -Exudate Amt Medium Medium Medium -Exudate Type Serosanguineous Serosanguineous Serosanguineous -Wound Margin Distinct, Thickened & Distinct, Outline Rolled Under Outline Attached Attached -Granulation Amt Large (67-100%) Medium (34-66%) Large (67-100%) -Granulation Quality Red [place] Red -Slough/Fibrin Yes -Necrosis Amt Small (1-33%) Medium (34-66%) Small (1-33%) -Necrotic Tissue Type Adherent Slough Adherent Slough Adherent Slough -Structure Exposed N/A N/A N/A -Texture (Renuka-wound Skin Appearance) Scarring Assessed Scarring -Moisture (Renuka-wound Skin Appearance) No Abnormality Assessed Maceration -Color (Renuka-wound Skin Appearance) Hemosiderin Assessed Hemosiderin Staining Staining -Temperature (Renuka-wound Skin No Abnormality No Abnormality No Abnormality Appearance) (Pt Warm) (Pt Warm) (Pt Warm) -Tenderness on Palpation (Renuka-wound No No Skin Appearance) -Ulcer Cleansing Soap and Water Wound Cleanser Soap and Water -Foul Odor after Cleansing No No No -Anesthetic Used 4% Lidocaine 5% Lidocaine 5% Lidocaine Solution Gel Gel LEFT SUP LE -Combined with other wound No -Current Size (cm) - Length 1 0.8 0.9 -Current Size (cm) - Width 1.2 1.2 1.3 -Current Size (cm) - Depth 0.5 0.2 0.1 -Total Square Cm 1.2 0.96 1.17 -Photo Taken Yes Yes Yes -Tunneling No -Undermining/Tunneling No -Maximum Distance #2 (cm) 0.2 -Circular Undermining Yes No -Exudate Amt Medium Medium -Exudate Type Serosanguineous Serosanguineous -Wound Margin Thickened & Distinct, Rolled Under Outline Attached -Granulation Amt Large (67-100%) Medium (34-66%) Medium (34-66%) -Granulation Quality Red [place] Red -Slough/Fibrin Yes -Necrosis Amt Small (1-33%) Small (1-33%) Small (1-33%) -Necrotic Tissue Type Adherent Slough Adherent Slough Adherent Slough -Structure Exposed N/A N/A N/A -Texture (Renuka-wound Skin Appearance) Scarring Assessed Scarring -Moisture (Renuka-wound Skin Appearance) No Abnormality Assessed Maceration -Color (Renuka-wound Skin Appearance) Hemosiderin Assessed Hemosiderin Staining Staining -Temperature (Renuka-wound Skin No Abnormality No Abnormality No Abnormality Appearance) (Pt Warm) (Pt Warm) (Pt Warm) -Tenderness on Palpation (Renuka-wound No No Skin Appearance) -Ulcer Cleansing Soap and Water Wound Cleanser Soap and Water -Foul Odor after Cleansing No No No -Anesthetic Used 4% Lidocaine 5% Lidocaine 5% Lidocaine Solution Gel Gel LEFT MEDIAL CLUSTER LE -Combined with other wound No -Current Size (cm) - Length 3.2 3.4 3 -Current Size (cm) - Width 3.8 3.4 3.2 -Current Size (cm) - Depth 1 1 0.9 -Total Square Cm 12.16 11.56 9.6 -Photo Taken Yes Yes Yes -Tunneling No -Undermining/Tunneling No -Circular Undermining No -Exudate Amt Medium Large Medium -Exudate Type Serosanguineous Serosanguineous Serosanguineous -Wound Margin Distinct, Thickened & Distinct, Outline Rolled Under Outline Attached Attached -Granulation Amt Large (67-100%) Medium (34-66%) Large (67-100%) -Granulation Quality Red [place] Red -Slough/Fibrin Yes -Necrosis Amt Small (1-33%) Small (1-33%) None Present (0 %) -Necrotic Tissue Type Adherent Slough Adherent Slough -Structure Exposed N/A N/A N/A -Texture (Renuka-wound Skin Appearance) Scarring Assessed Scarring -Moisture (Renuka-wound Skin Appearance) No Abnormality Assessed Maceration -Color (Renuka-wound Skin Appearance) Hemosiderin Assessed Hemosiderin Staining Staining -Temperature (Renuka-wound Skin No Abnormality No Abnormality No Abnormality Appearance) (Pt Warm) (Pt Warm) (Pt Warm) -Tenderness on Palpation (Renuka-wound No No No Skin Appearance) -Ulcer Cleansing Soap and Water Wound Cleanser Soap and Water -Foul Odor after Cleansing No No No -Anesthetic Used 4% Lidocaine 5% Lidocaine 5% Lidocaine Solution Gel Gel Lower Limb Edema Present Yes Right Calf (cm) Right Ankle (cm) Left Calf (cm) 46 47.2 46 Left Ankle (cm) 26.5 27.5 26.5 02/23/25 09:18 Wound Center Nurse 1 LEFT INF LE -Combined with other wound -Current Size (cm) - Length 1 -Current Size (cm) - Width 1.3 -Current Size (cm) - Depth 0.1 -Total Square Cm 1.3 -Photo Taken Yes -Tunneling -Undermining/Tunneling -Undermining/Tunneling Starts (O'clock ) -Undermining/Tunneling Ends (O'clock) -Maximum Distance (cm) -Circular Undermining -Exudate Amt Medium -Exudate Type Serosanguineous -Wound Margin Distinct, Outline Attached -Granulation Amt -Granulation Quality Red -Slough/Fibrin -Necrosis Amt Small (1-33%) -Necrotic Tissue Type Adherent Slough -Structure Exposed N/A -Texture (Renuka-wound Skin Appearance) Scarring -Moisture (Renuka-wound Skin Appearance) Maceration -Color (Renuka-wound Skin Appearance) Hemosiderin Staining -Temperature (Renuka-wound Skin No Abnormality Appearance) (Pt Warm) -Tenderness on Palpation (Renuka-wound Skin Appearance) -Ulcer Cleansing Soap and Water -Foul Odor after Cleansing -Anesthetic Used 5% Lidocaine Gel LEFT SUP LE -Combined with other wound -Current Size (cm) - Length 0.9 -Current Size (cm) - Width 1.1 -Current Size (cm) - Depth 0.1 -Total Square Cm 0.99 -Photo Taken Yes -Tunneling -Undermining/Tunneling -Maximum Distance #2 (cm) -Circular Undermining -Exudate Amt Medium -Exudate Type Serosanguineous -Wound Margin Distinct, Outline Attached -Granulation Amt Large (67-100%) -Granulation Quality Red -Slough/Fibrin -Necrosis Amt Small (1-33%) -Necrotic Tissue Type Adherent Slough -Structure Exposed N/A -Texture (Renuka-wound Skin Appearance) Scarring -Moisture (Renuka-wound Skin Appearance) Maceration -Color (Renuka-wound Skin Appearance) Hemosiderin Staining -Temperature (Renuka-wound Skin No Abnormality Appearance) (Pt Warm) -Tenderness on Palpation (Renuka-wound Skin Appearance) -Ulcer Cleansing Soap and Water -Foul Odor after Cleansing No -Anesthetic Used 5% Lidocaine Gel LEFT MEDIAL CLUSTER LE -Combined with other wound -Current Size (cm) - Length 2.8 -Current Size (cm) - Width 3.1 -Current Size (cm) - Depth 0.7 -Total Square Cm 8.68 -Photo Taken Yes -Tunneling -Undermining/Tunneling -Circular Undermining -Exudate Amt Medium -Exudate Type Serosanguineous -Wound Margin Distinct, Outline Attached -Granulation Amt Large (67-100%) -Granulation Quality Red -Slough/Fibrin -Necrosis Amt Small (1-33%) -Necrotic Tissue Type Adherent Slough -Structure Exposed N/A -Texture (Renuka-wound Skin Appearance) Scarring -Moisture (Renuka-wound Skin Appearance) Maceration -Color (Renuka-wound Skin Appearance) Hemosiderin Staining -Temperature (Renuka-wound Skin No Abnormality Appearance) (Pt Warm) -Tenderness on Palpation (Renuka-wound Skin Appearance) -Ulcer Cleansing Soap and Water -Foul Odor after Cleansing No -Anesthetic Used 5% Lidocaine Gel Lower Limb Edema Present Right Calf (cm) 44 Right Ankle (cm) 26.3 Left Calf (cm) Left Ankle (cm) WC - Nurse 2 - General Ulcer CM Notes Start: 02/02/25 09:16 Freq: Status: Active Protocol: Activity Type Activity Date Activity User E-sign Co-sign Detail Recorded Client Recorded Date Recorded By Document 02/02/25 09:34 [facility] [id number] 02/02/25 09:44 [facility] Document 02/09/25 09:47 [facility] [id number] 02/09/25 10:05 BM Document 02/16/25 09:28 [facility] [id number] 02/16/25 09:42 [facility] Document 02/23/25 09:48 [facility] [id number] 02/23/25 09:58 [facility] 02/02/25 02/09/25 02/16/25 09:34 09:47 09:28 Wound Center Nurse 2 LEFT INF LE -Time 09:34 09:49 09:28 -Correct Patient Yes Yes Yes -Correct Side, Site, Position Yes Yes Yes -Correct Procedure Yes Yes Yes -Procedure Performed Yes Yes Yes -Type of Procedure Debridement Debridement Debridement -Clinical Debridement Muscle / Fascia Muscle / Fascia Subcutaneous -Tissue Removed Muscle,Fascia Muscle,Fascia Subcutaneous -Post Debridement (cm) - Length 1.2 1.1 1 -Post Debridement (cm) - Width 1.3 1.3 1.4 -Post Debridement (cm) - Depth 0.3 0.3 0.2 -Total Square (Post) (cm) 1.56 1.43 1.4 -Area of Debridement (cm) - Length 1.2 1.1 1 -Area of Debridement (cm) - Width 1.3 1.3 1.4 -Total Square (Area) (cm) 1.56 1.43 1.4 -Tunneling No No -Undermining/Tunneling Yes No No -Undermining/Tunneling Starts (O'clock 10 ) -Undermining/Tunneling Ends (O'clock) 2 -Maximum Distance (cm) 0.9 -Circular Undermining No No -Wound/Ulcer Outcome Not Healed Not Healed Not Healed -Ulcer Cleansing Rinsed/ Rinsed/ Rinsed/ Irrigated with Irrigated with Irrigated with Saline Saline Saline -Foul Odor after Cleansing No No No -Bioengineered Tissue No No -Bleeding Controlled with Pressure Pressure Pressure -Treatment Response Procedure Procedure Procedure Tolerated Well Tolerated Well Tolerated Well -Debridement - Subq, 1st 20sq cm Yes -Debridement - Muscle / Fascia, 1st No Yes 20sq cm LEFT SUP LE -Time 09:35 09:52 09:29 -Correct Patient Yes Yes Yes -Correct Side, Site, Position Yes Yes Yes -Correct Procedure Yes Yes Yes -Procedure Performed Yes Yes Yes -Type of Procedure Debridement Debridement Debridement -Clinical Debridement Muscle / Fascia Muscle / Fascia Subcutaneous -Tissue Removed Muscle,Fascia Muscle,Fascia Subcutaneous -Post Debridement (cm) - Length 1 1 1 -Post Debridement (cm) - Width 1.3 1.3 1.3 -Post Debridement (cm) - Depth 0.3 0.3 0.2 -Total Square (Post) (cm) 1.3 1.3 1.3 -Area of Debridement (cm) - Length 1 1 1 -Area of Debridement (cm) - Width 1.3 1.3 1.3 -Total Square (Area) (cm) 1.3 1.3 1.3 -Tunneling No No No -Undermining/Tunneling Yes No No -Undermining/Tunneling Starts (O'clock 11 ) -Undermining/Tunneling Ends (O'clock) 4 -Maximum Distance (cm) 0.4 -Circular Undermining No No -Wound/Ulcer Outcome Not Healed Not Healed Not Healed -Ulcer Cleansing Rinsed/ Rinsed/ Rinsed/ Irrigated with Irrigated with Irrigated with Saline Saline Saline -Foul Odor after Cleansing No No No -Bioengineered Tissue No No No -Bleeding Controlled with Pressure Pressure Pressure -Treatment Response Procedure Procedure Procedure Tolerated Well Tolerated Well Tolerated Well -Debridement - Subq, 1st 20sq cm No -Debridement - Muscle / Fascia, 1st No No 20sq cm LEFT MEDIAL CLUSTER LE -Time 09:35 09:51 09:29 -Correct Patient Yes Yes Yes -Correct Side, Site, Position Yes Yes Yes -Correct Procedure Yes Yes Yes -Procedure Performed Yes Yes Yes -Type of Procedure Debridement Debridement Debridement -Clinical Debridement Muscle / Fascia Muscle / Fascia Muscle / Fascia -Tissue Removed Muscle,Fascia Muscle,Fascia Muscle,Fascia -Post Debridement (cm) - Length 3.7 3.5 3 -Post Debridement (cm) - Width 4 3.7 3.4 -Post Debridement (cm) - Depth 0.7 1.1 1.5 -Total Square (Post) (cm) 14.8 12.95 10.2 -Area of Debridement (cm) - Length 3.7 3.5 3 -Area of Debridement (cm) - Width 4 3.7 3.4 -Total Square (Area) (cm) 14.8 12.95 10.2 -Tunneling No No -Undermining/Tunneling No No -Circular Undermining No No -Wound/Ulcer Outcome Not Healed Not Healed Not Healed -Ulcer Cleansing Rinsed/ Rinsed/ Rinsed/ Irrigated with Irrigated with Irrigated with Saline Saline Saline -Foul Odor after Cleansing No No No -Bioengineered Tissue No No Yes -Type of Bioengineered Tissue Epifix Mesh Epifix Mesh -Expiration Date 07/02/29 07/02/29 -Product Lot Number [id number] -Percent Used 100 100 -Lot number of Saline Used [id number] -Bleeding Controlled with Pressure Pressure Pressure -Treatment Response Procedure Procedure Procedure Tolerated Well Tolerated Well Tolerated Well -Debridement - Muscle / Fascia, 1st Yes No No 20sq cm -Apply Skin Sub - 1st 25 sq cm - Legs 1 1 -Epifix Mesh Application 1-4 (per sq 11 11 cm) Pain Scale: 0-10 Numeric Is Patient Pain Free? Yes Yes Yes 02/23/25 09:48 Wound Center Nurse 2 LEFT INF LE -Time 09:49 -Correct Patient Yes -Correct Side, Site, Position Yes -Correct Procedure Yes -Procedure Performed Yes -Type of Procedure Debridement -Clinical Debridement Subcutaneous -Tissue Removed Subcutaneous -Post Debridement (cm) - Length 1.1 -Post Debridement (cm) - Width 1.5 -Post Debridement (cm) - Depth 0.1 -Total Square (Post) (cm) 1.65 -Area of Debridement (cm) - Length 1.1 -Area of Debridement (cm) - Width 1.5 -Total Square (Area) (cm) 1.65 -Tunneling No -Undermining/Tunneling No -Undermining/Tunneling Starts (O'clock ) -Undermining/Tunneling Ends (O'clock) -Maximum Distance (cm) -Circular Undermining No -Wound/Ulcer Outcome Not Healed -Ulcer Cleansing Rinsed/ Irrigated with Saline -Foul Odor after Cleansing No -Bioengineered Tissue No -Bleeding Controlled with Pressure -Treatment Response Procedure Tolerated Well -Debridement - Subq, 1st 20sq cm Yes -Debridement - Muscle / Fascia, 1st 20sq cm LEFT SUP LE -Time 09:50 -Correct Patient Yes -Correct Side, Site, Position Yes -Correct Procedure Yes -Procedure Performed Yes -Type of Procedure Debridement -Clinical Debridement Subcutaneous -Tissue Removed Subcutaneous -Post Debridement (cm) - Length 0.7 -Post Debridement (cm) - Width 1 -Post Debridement (cm) - Depth 0.1 -Total Square (Post) (cm) 0.7 -Area of Debridement (cm) - Length 0.7 -Area of Debridement (cm) - Width 1 -Total Square (Area) (cm) 0.7 -Tunneling No -Undermining/Tunneling No -Undermining/Tunneling Starts (O'clock ) -Undermining/Tunneling Ends (O'clock) -Maximum Distance (cm) -Circular Undermining No -Wound/Ulcer Outcome Not Healed -Ulcer Cleansing Rinsed/ Irrigated with Saline -Foul Odor after Cleansing No -Bioengineered Tissue No -Bleeding Controlled with Pressure -Treatment Response Procedure Tolerated Well -Debridement - Subq, 1st 20sq cm No -Debridement - Muscle / Fascia, 1st 20sq cm LEFT MEDIAL CLUSTER LE -Time 09:50 -Correct Patient Yes -Correct Side, Site, Position Yes -Correct Procedure Yes -Procedure Performed Yes -Type of Procedure Debridement -Clinical Debridement Muscle / Fascia -Tissue Removed Muscle,Fascia -Post Debridement (cm) - Length 3 -Post Debridement (cm) - Width 3 -Post Debridement (cm) - Depth 0.7 -Total Square (Post) (cm) 9 -Area of Debridement (cm) - Length 3 -Area of Debridement (cm) - Width 3 -Total Square (Area) (cm) 9 -Tunneling No -Undermining/Tunneling No -Circular Undermining No -Wound/Ulcer Outcome Not Healed -Ulcer Cleansing Rinsed/ Irrigated with Saline -Foul Odor after Cleansing No -Bioengineered Tissue Yes -Type of Bioengineered Tissue Epifix Mesh -Expiration Date 07/02/29 -Product Lot Number [id number] -Percent Used 100 -Lot number of Saline Used [id number] -Bleeding Controlled with Pressure -Treatment Response Procedure Tolerated Well -Debridement - Muscle / Fascia, 1st No 20sq cm -Apply Skin Sub - 1st 25 sq cm - Legs 1 -Epifix Mesh Application 1-4 (per sq 11 cm) Pain Scale: 0-10 Numeric Is Patient Pain Free? Yes WC - Nurse 3 - General Ulcer D/C NN Start: 02/02/25 09:16 Freq: Status: Active Protocol: Activity Type Activity Date Activity User E-sign Co-sign Detail Recorded Client Recorded Date Recorded By Document 02/02/25 10:02 DL [id number] 02/02/25 10:11 DL Document 02/09/25 10:20 DL [id number] 02/09/25 10:22 DL Document 02/16/25 09:59 DL [id number] 02/16/25 10:00 DL Document 02/23/25 10:10 DL [id number] 02/23/25 10:11 DL 02/02/25 02/09/25 02/16/25 10:02 10:20 09:59 Wound Care Center Nurse 3 LEFT INF LE -Ulcer Cleansing Soap and Water Not Cleansed -Foul Odor after Cleansing No No -Primary Dressing Applied Nugauze, Aquacel Extra Iodoform 1/4in -Other Dressing dakins moist EPIFIX ABD iodoform -Primary Dressing Covered/Secured with Dry Gauze & Dry Gauze & Dry Gauze & Roll Gauze, Roll Gauze, Roll Gauze, Secured with Secured with Secured with Tape Tape Tape -Other Covering ABD -Aquacel Extra 1 -Nugauze, Iodoform 1/4 1 LEFT SUP LE -Ulcer Cleansing Soap and Water -Foul Odor after Cleansing No No No -Other Dressing dakins moist 1/ EPIFIX aquacel ex/ ABD 4 iodoform -Primary Dressing Covered/Secured with Dry Gauze & Dry Gauze & Dry Gauze & Roll Gauze, Roll Gauze, Roll Gauze, Secured with Secured with Secured with Tape Tape Tape -Other Covering ABD LEFT MEDIAL CLUSTER LE -Ulcer Cleansing Soap and Water Not Cleansed -Foul Odor after Cleansing No -Other Dressing dakins EPIFIX aquacel ex/ABD moistened gauze -Primary Dressing Covered/Secured with Dry Gauze & Dry Gauze & Dry Gauze & Roll Gauze, Roll Gauze, Roll Gauze, Secured with Secured with Secured with Tape Tape Tape -Other Covering ABD LLE -Tubular Bandage Double Layer Double Layer -Size of Tubigrip Used Size E Size E -Size E ($) 2 2 -Other tubigrip Treatment Response Procedure Procedure Tolerated Well Tolerated Well Pain Scale: 0-10 Numeric Is Patient Pain Free? Yes Yes Yes - Visit Discharge Discharge Condition Stable Stable Stable Ambulatory Status Ambulatory Ambulatory Ambulatory,Cane Transportation Private Auto Private Auto Private Auto 02/23/25 10:10 [facility] Nurse 3 LEFT INF LE -Ulcer Cleansing -Foul Odor after Cleansing No -Primary Dressing Applied -Other Dressing [place] -Primary Dressing Covered/Secured with Dry Gauze & Roll Gauze, Secured with Tape -Other Covering ABD -Aquacel Extra -Nugauze, Iodoform 1/4 LEFT SUP LE -Ulcer Cleansing -Foul Odor after Cleansing No -Other Dressing [place] -Primary Dressing Covered/Secured with Dry Gauze & Roll Gauze, Secured with Tape -Other Covering ABD LEFT MEDIAL CLUSTER LE -Ulcer Cleansing -Foul Odor after Cleansing No -Other Dressing [place] -Primary Dressing Covered/Secured with Dry Gauze & Roll Gauze, Secured with Tape -Other Covering ABD LLE -Tubular Bandage -Size of Tubigrip Used -Size E ($) -Other Tubigrip F Treatment Response Procedure Tolerated Well Pain Scale: 0-10 Numeric Is Patient Pain Free? Yes WC - Visit Discharge Discharge Condition Stable Ambulatory Status Ambulatory Transportation Private Auto Additional Wound Wound debrided: Inferior left lower leg wound trauma Type of Debridement: Excisional debridement Anesthesia Used: 5% Lidocaine Gel Depth: Down to and including healthy tissue and in the subcutaneous layer Percentage of wound debrided: 100 Instrument Used: 5mm curette Tissue Removed: Fibrin Severity: Fat Layer Exposed Amount of bleeding with debridement: Mild Bleeding Controlled with: Compression and gauze Patient tolerated procedure: Patient tolerated procedure well Additional Wound Wound debrided: Superior left lower leg traumatic wound Laterality: Left Type of Debridement: Excisional debridement Anesthesia Used: 5% Lidocaine Gel Depth: Down to and including healthy tissue and in the subcutaneous layer Percentage of wound debrided: 100 Instrument Used: 5mm curette Tissue Removed: Fibrin Severity: Fat Layer Exposed Amount of bleeding with debridement: Mild Bleeding Controlled with: Compression and gauze Patient tolerated procedure: Patient tolerated procedure well Assessment/Plan Assessment/Plan (1) Traumatic skin ulcer with fat layer exposed: CODE(S): L98.492 - Non-pressure chronic ulcer of skin of other sites with fat layer exposed PLAN: Wash only the inferior and superior wounds with antibacterial soap and water pack all wounds with Dakin soaked half-inch iodoform gauze in the wound itself then cover with ABD and Steven Continue taking metronidazole Tubigrip double layer to left leg every day #3 EpiFix was applied to the medial wound base and covered with wound veil and Steri-Strips and a foam dressing covered. Patient was instructed to get a cast Cover to take showers. Patient was instructed not to touch any of the Steri-Strips or lower she is allowed to change the outside dressing if he gets soiled or wet. Patient instructed to follow-up in 1 week (2) Type 2 diabetes mellitus with hyperglycemia: CODE(S): E11.65 - Type 2 diabetes mellitus with hyperglycemia QUALIFIERS: Diabetes mellitus skilled nursing insulin use: without technician terminal and repeater use Qualified Code(s): E11.65 - Type 2 diabetes mellitus with hyperglycemia (3) Lower extremity edema: CODE(S): R60.0 - Localized edema (4) Peripheral vascular disease: CODE(S): I73.9 - Peripheral vascular disease, unspecified
--- NOTE | 2025-02-24 10:54 | WC ---
PHOTO 02/23/25 MARKUS RIDER
== END 2025-02-28 23:59 | disposition home or self-care (01) ==
LOC: WC 09:00
PROVIDERS: PCP Family Medicine; Referring Provider Family Medicine; Visit Provider Nurse Practitioner
DX: E11.621 Type 2 diabetes mellitus with foot ulcer (principal); L97.822 Non-pressure chronic ulcer of other part of left lower leg with fat layer exposed; Z79.4 Long term (current) use of insulin; E11.51 Type 2 diabetes mellitus with diabetic peripheral angiopathy without gangrene; E11.65 Type 2 diabetes mellitus with hyperglycemia; M79.89 Other specified soft tissue disorders; Z79.85 Long-term (current) use of injectable non-insulin antidiabetic drugs; R60.0 Localized edema
CPT/HCPCS: 11042; 11043; 15271; Q4186

== ENCOUNTER 2025-03-30 09:15 | Outpatient (RCR) | payer MEDICARE, SELFPAY ==
[2025-03-02 09:31] VITALS: BP 129/71; PULSE 84; RESP 18; TEMP 36
--- NOTE | 2025-03-02 10:32 | PN.PCM_ITS ---
History of Present Illness Date of Service: 03/02/25 Chief Complaint: Left leg wound from trauma History of Wound: 69-year-old white female that fell down her carpeted steps December 25 had developed blood blisters over the left leg medially distal half both legs are swollen but the left leg now is more swollen than the right leg she has been trying to take care of them herself with just antibiotic ointments but then they opened and she is got dark and eschar on them and followed up with her family doctor that referred her here and started her on doxycycline told her to stay on it until seen. She is also diabetic and on insulin and Ozempic and other meds that would not interfere with treatment or healing. Progress of Wound: So all the wounds have measured smaller and the medial wound is much shallower than it had been in the past the other 2 are more superficial anyways now and just needs skin to cover. No sign of infection no smell no odor good flesh color around the parameters of the wounds everything looks good we will continue using the EpiFix Subjective Subjective Patient is happy with outcomes and is doing well Objective Data Objective Data No sign of infection and all wounds are healing well we will continue using EpiFix Vital Signs: Vital Signs Temp Pulse Resp BP 96.8 F L 84 18 129/71 H 03/02/25 09:31 03/02/25 09:31 03/02/25 09:31 03/02/25 09:31 Physical Exam Const oriented x3 General Appearance: cooperative Exam Limitations: no limitations HEENT normocephalic Head and Scalp: normal to inspection Face and Sinus: normal facial exam Eyes General Eye: normal appearance of both eyes Neck full ROM General: normal visual inspection Resp normal respiratory effort Effort and Inspection: able to speak in complete sentences Auscultation: clear to auscultation bilaterally Cardio regular rate and regular rhythm Palpation: normal PMI Rate: regular rate Rhythm: regular rhythm GI Palpation: soft and no hepatosplenomegaly Back/Spine Cervical Spine: cervical ROM normal Thoracic Spine / Upper Back: normal to inspection Lumbar Spine / Lower Back: normal to inspection Extremity General Extremity: normal exam except as noted, edema and other findings Other Details: Open wounds x 3 left lower leg Skin no rashes or lesions noted Skin Narrative: Open wounds medial superior and inferior left lower leg with eschar and darkened erythema around the wound base. Legs are extremely edematous left greater than right. Neuro oriented x3 Psych Appearance: grossly normal Speech: normal speech Thought Content: normal thought content Judgement: judgement good Debridement Note Debridement Note Wound debrided: Medial left lower leg wound traumatic Type of Debridement: Excisional debridement Anesthesia Used: 5% Lidocaine Gel Depth: in the subcutaneous layer Percentage of wound debrided: 100 Instrument Used: 5mm curette Tissue Removed: Fibrin Severity: Fat Layer Exposed Amount of bleeding with debridement: None Bleeding Controlled with: Compression and gauze Patient tolerated procedure: Patient tolerated procedure well Post-Debridement Measurements and Additional Note: Post-Debridement Measurements/Treatment - Nurse 1 - General Ulcer Assessment Start: 03/02/25 09:31 Freq: Status: Active Protocol: KITTY Activity Type Activity Date Activity User E-sign Co-sign Detail Recorded Client Recorded Date Recorded By Document 03/02/25 09:31 RB [id number] 03/02/25 09:35 RB 03/02/25 09:31 WC - Today's Visit Information Type of service Follow-up Visit (Physician/SAND DRIER ) Arrival Mode Ambulatory Transfer Assistance None Patient Identification Verified (Name & Yes ) Patient Requires Transmission-Based No Precautions Vital Signs Temperature (97.8 F-99.1 F) 96.8 F L Temperature Source Temporal Pulse Rate (60-100) 84 Pulse Location Monitor Respiratory Rate (12-18) 18 Respiratory rate source Observation Blood Pressure (90/60-120/80) 129/71 H Blood Pressure Mean (mm Hg) 90 Source Monitor Position Semi-Fowlers Blood Pressure Location Left Arm History Since Last Visit- (Skip if this is Patient's initial visit) Have you changed medications since your No last visit? Any new allergies or adverse reactions No Had a fall/change in ADL's that may No increase risk of falls Signs or symptoms of abuse and/or No neglect since last visit Have you been in the hospital since your No last visit? Has dressing in place as prescribed Yes Has compression in place as prescribed Yes Has offloadiing in place as prescribed N/A Experienced any changes in pain level or No management Left Footwear Regular Shoe Right Footwear Regular Shoe Pain Scale: 0-10 Numeric Is Patient Pain Free? Yes - Nurse 1 - General Ulcer Measurement Start: 03/02/25 09:31 Freq: Status: Active Protocol: Activity Type Activity Date Activity User E-sign Co-sign Detail Recorded Client Recorded Date Recorded By Document 03/02/25 09:31 RB [id number] 03/02/25 09:35 RB 03/02/25 09:31 Wound Center Nurse 1 LEFT INF LE -Combined with other wound No -Current Size (cm) - Length 1 -Current Size (cm) - Width 1.1 -Current Size (cm) - Depth 0.1 -Total Square Cm 1.1 -Photo Taken Yes -Tunneling No -Undermining/Tunneling No -Circular Undermining No -Exudate Amt Medium -Exudate Type Serosanguineous -Wound Margin Distinct, Outline Attached -Granulation Amt Medium (34-66%) -Granulation Quality [place] -Slough/Fibrin Yes -Necrosis Amt Medium (34-66%) -Necrotic Tissue Type Adherent Slough -Structure Exposed N/A -Texture (Renuka-wound Skin Appearance) Assessed, Scarring -Moisture (Renuka-wound Skin Appearance) Assessed -Color (Renuka-wound Skin Appearance) Assessed -Temperature (Renuka-wound Skin No Abnormality Appearance) (Pt Warm) -Tenderness on Palpation (Renuka-wound No Skin Appearance) -Ulcer Cleansing Wound Cleanser -Foul Odor after Cleansing No -Anesthetic Used 5% Lidocaine Gel LEFT SUP LE -Combined with other wound No -Current Size (cm) - Length 0.7 -Current Size (cm) - Width 1.1 -Current Size (cm) - Depth 0.1 -Total Square Cm 0.77 -Photo Taken Yes -Tunneling No -Undermining/Tunneling No -Circular Undermining No -Exudate Amt Medium -Exudate Type Serosanguineous -Wound Margin Distinct, Outline Attached -Granulation Amt Medium (34-66%) -Granulation Quality [place] -Slough/Fibrin Yes -Necrosis Amt Medium (34-66%) -Necrotic Tissue Type Adherent Slough -Structure Exposed N/A -Texture (Renuka-wound Skin Appearance) Assessed, Scarring -Moisture (Renuka-wound Skin Appearance) Assessed -Color (Renuka-wound Skin Appearance) Assessed -Temperature (Renuka-wound Skin No Abnormality Appearance) (Pt Warm) -Tenderness on Palpation (Renuka-wound No Skin Appearance) -Ulcer Cleansing Wound Cleanser -Foul Odor after Cleansing No -Anesthetic Used 5% Lidocaine Gel LEFT MEDIAL CLUSTER LE -Combined with other wound No -Current Size (cm) - Length 2.6 -Current Size (cm) - Width 2.6 -Current Size (cm) - Depth 0.5 -Total Square Cm 6.76 -Photo Taken Yes -Tunneling No -Undermining/Tunneling No -Circular Undermining No -Exudate Amt Medium -Exudate Type Serosanguineous -Wound Margin Distinct, Outline Attached -Granulation Amt Medium (34-66%) -Granulation Quality [place] -Slough/Fibrin Yes -Necrosis Amt Medium (34-66%) -Necrotic Tissue Type Adherent Slough -Structure Exposed N/A -Texture (Renuka-wound Skin Appearance) Assessed, Scarring -Moisture (Renuka-wound Skin Appearance) Assessed -Color (Renuka-wound Skin Appearance) Assessed -Temperature (Renuka-wound Skin No Abnormality Appearance) (Pt Warm) -Tenderness on Palpation (Renuka-wound No Skin Appearance) -Ulcer Cleansing Wound Cleanser -Foul Odor after Cleansing No -Anesthetic Used 5% Lidocaine Gel Lower Limb Edema Present Yes Left Calf (cm) 46.5 Left Ankle (cm) 27.8 WC - Nurse 2 - General Ulcer CM Notes Start: 03/02/25 09:31 Freq: Status: Active Protocol: Activity Type Activity Date Activity User E-sign Co-sign Detail Recorded Client Recorded Date Recorded By Document 03/02/25 09:40 [facility] [id number] 03/02/25 09:50 [facility] 03/02/25 09:40 Wound Center Nurse 2 LEFT INF LE -Time 09:41 -Correct Patient Yes -Correct Side, Site, Position Yes -Correct Procedure Yes -Procedure Performed Yes -Type of Procedure Debridement -Clinical Debridement Subcutaneous -Tissue Removed Subcutaneous -Post Debridement (cm) - Length 1 -Post Debridement (cm) - Width 1 -Post Debridement (cm) - Depth 0.1 -Total Square (Post) (cm) 1 -Area of Debridement (cm) - Length 1 -Area of Debridement (cm) - Width 1 -Total Square (Area) (cm) 1 -Tunneling No -Undermining/Tunneling No -Circular Undermining No -Wound/Ulcer Outcome Not Healed -Ulcer Cleansing Rinsed/ Irrigated with Saline -Foul Odor after Cleansing No -Bioengineered Tissue No -Bleeding Controlled with Pressure -Treatment Response Procedure Tolerated Well -Debridement - Subq, 1st 20sq cm Yes LEFT SUP LE -Time 09:41 -Correct Patient Yes -Correct Side, Site, Position Yes -Correct Procedure Yes -Procedure Performed Yes -Type of Procedure Debridement -Clinical Debridement Subcutaneous -Tissue Removed Subcutaneous -Post Debridement (cm) - Length 0.7 -Post Debridement (cm) - Width 1.2 -Post Debridement (cm) - Depth 0.1 -Total Square (Post) (cm) 0.84 -Area of Debridement (cm) - Length 0.7 -Area of Debridement (cm) - Width 1.2 -Total Square (Area) (cm) 0.84 -Tunneling No -Undermining/Tunneling No -Circular Undermining No -Wound/Ulcer Outcome Not Healed -Ulcer Cleansing Rinsed/ Irrigated with Saline -Foul Odor after Cleansing No -Bioengineered Tissue No -Bleeding Controlled with Pressure -Treatment Response Procedure Tolerated Well -Debridement - Subq, 1st 20sq cm No LEFT MEDIAL CLUSTER LE -Time 09:41 -Correct Patient Yes -Correct Side, Site, Position Yes -Correct Procedure Yes -Procedure Performed Yes -Type of Procedure Debridement -Clinical Debridement Muscle / Fascia -Tissue Removed Muscle,Fascia -Post Debridement (cm) - Length 2.7 -Post Debridement (cm) - Width 2.5 -Post Debridement (cm) - Depth 0.7 -Total Square (Post) (cm) 6.75 -Area of Debridement (cm) - Length 2.7 -Area of Debridement (cm) - Width 2.5 -Total Square (Area) (cm) 6.75 -Tunneling No -Undermining/Tunneling No -Circular Undermining No -Wound/Ulcer Outcome Not Healed -Ulcer Cleansing Rinsed/ Irrigated with Saline -Foul Odor after Cleansing No -Bioengineered Tissue No -Type of Bioengineered Tissue Epifix Mesh -Expiration Date 09/01/29 -Product Lot Number [id number] -Percent Used 100 -Lot number of Saline Used [id number] -Bleeding Controlled with Pressure -Treatment Response Procedure Tolerated Well -Debridement - Muscle / Fascia, 1st No 20sq cm -Apply Skin Sub - 1st 25 sq cm - Legs 1 -Epifix Mesh Application 1-4 (per sq 11 cm) Pain Scale: 0-10 Numeric Is Patient Pain Free? Yes WC - Nurse 3 - General Ulcer D/C NN Start: 03/02/25 09:31 Freq: Status: Active Protocol: Activity Type Activity Date Activity User E-sign Co-sign Detail Recorded Client Recorded Date Recorded By Document 03/02/25 10:06 ANANYA [id number] 03/02/25 10:08 ANANYA 03/02/25 10:06 Wound Care Center Nurse 3 LEFT INF LE -Foul Odor after Cleansing No -Primary Dressing Applied Aquacel Extra -Other Dressing Epi -Primary Dressing Covered/Secured with Dry Gauze & Roll Gauze, Secured with Tape -Aquacel Extra 1 LEFT SUP LE -Foul Odor after Cleansing No -Other Dressing Epi/aquacel ex -Primary Dressing Covered/Secured with Dry Gauze & Roll Gauze, Secured with Tape LEFT MEDIAL CLUSTER LE -Foul Odor after Cleansing No -Other Dressing Epi/aquacelEX -Primary Dressing Covered/Secured with Dry Gauze & Roll Gauze, Secured with Tape LLE -Tubular Bandage Double Layer -Size of Tubigrip Used Size E -Size E ($) 2 Pain Scale: 0-10 Numeric Is Patient Pain Free? Yes WC - Visit Discharge Discharge Condition Stable Ambulatory Status Ambulatory Transportation Private Auto Additional Wound Wound debrided: Inferior left lower leg wound trauma Type of Debridement: Excisional debridement Anesthesia Used: 5% Lidocaine Gel Depth: Down to and including healthy tissue and in the subcutaneous layer Percentage of wound debrided: 100 Instrument Used: 5mm curette Tissue Removed: Fibrin Severity: Fat Layer Exposed Amount of bleeding with debridement: Mild Bleeding Controlled with: Compression and gauze Patient tolerated procedure: Patient tolerated procedure well Additional Wound Wound debrided: Superior left lower leg traumatic wound Laterality: Left Type of Debridement: Excisional debridement Anesthesia Used: 5% Lidocaine Gel Depth: Down to and including healthy tissue and in the subcutaneous layer Percentage of wound debrided: 100 Instrument Used: 5mm curette Tissue Removed: Fibrin Severity: Fat Layer Exposed Amount of bleeding with debridement: Mild Bleeding Controlled with: Compression and gauze Patient tolerated procedure: Patient tolerated procedure well Assessment/Plan Assessment/Plan (1) Traumatic skin ulcer with fat layer exposed: CODE(S): L98.492 - Non-pressure chronic ulcer of skin of other sites with fat layer exposed PLAN: Wash only the inferior and superior wounds with antibacterial soap and water pack all wounds with Dakin soaked half-inch iodoform gauze in the wound itself then cover with ABD and Steven Continue taking metronidazole Tubigrip double layer to left leg every day #4 EpiFix was applied to the medial wound base and covered with wound veil and Steri-Strips and a foam dressing covered. Patient was instructed to get a cast Cover to take showers. Patient was instructed not to touch any of the Steri- Strips or lower she is allowed to change the outside dressing if he gets soiled or wet. Patient instructed to follow-up in 1 week (2) Type 2 diabetes mellitus with hyperglycemia: CODE(S): E11.65 - Type 2 diabetes mellitus with hyperglycemia QUALIFIERS: Diabetes mellitus intermediate school teacher insulin use: without intermediate school teacher use Qualified Code(s): E11.65 - Type 2 diabetes mellitus with hyperglycemia (3) Lower extremity edema: CODE(S): R60.0 - Localized edema (4) Peripheral vascular disease: CODE(S): I73.9 - Peripheral vascular disease, unspecified
--- NOTE | 2025-03-02 15:33 | WC ---
PHOTO 03/02/25
--- NOTE | 2025-03-02 15:35 | WC ---
PHOTO 03/02/25 MARKUS
--- NOTE | 2025-03-02 15:36 | WC ---
PHOTO 03/02/25 MARKUS
--- NOTE | 2025-03-07 09:25 | WC ---
PHOTO 03/02/25
--- NOTE | 2025-03-07 09:28 | WC ---
PHOTO 03/02/25 BRENDEN APARICIO
--- NOTE | 2025-03-07 09:31 | WC ---
PHOTO 03/02/25 JESSEE SUP
[2025-03-09 09:18] VITALS: BP 108/58; PULSE 91; RESP 16; TEMP 35.9
--- NOTE | 2025-03-09 12:50 | PCM.WC.PN ---
History of Present Illness Date of Service: 03/09/25 Chief Complaint: Left leg wound from trauma History of Wound: 69-year-old white female that fell down her carpeted steps December 25 had developed blood blisters over the left leg medially distal half both legs are swollen but the left leg now is more swollen than the right leg she has been trying to take care of them herself with just antibiotic ointments but then they opened and she is got dark and eschar on them and followed up with her family doctor that referred her here and started her on doxycycline told her to stay on it until seen. She is also diabetic and on insulin and Ozempic and other meds that would not interfere with treatment or healing. Progress of Wound: So all the wounds have measured smaller and the medial wound is much shallower than it had been in the past the other 2 are more superficial anyways now and just needs skin to cover. No sign of infection no smell no odor good flesh color around the parameters of the wounds everything looks good we will continue using the EpiFix. Subjective Subjective Patient is pleased with outcomes and discusses no problems at all and or concerns Objective Data Objective Data No sign of infection we applied epi #5 to wound base to the left lower medial wound to the lateral inferior and superiorly continue with the Fibracol. Vital Signs: Vital Signs Temp Pulse Resp BP O2 Del Method 96.7 F L 91 16 108/58 L Room Air 03/09/25 09:18 03/09/25 09:18 03/09/25 09:18 03/09/25 09:18 03/09/25 09:18 Oxygen Delivery Method Room Air Lab / Micro Data Attestation: I reviewed the patient's lab results. Physical Exam Const oriented x3 General Appearance: cooperative Exam Limitations: no limitations HEENT normocephalic Head and Scalp: normal to inspection Face and Sinus: normal facial exam Eyes General Eye: normal appearance of both eyes Neck full ROM General: normal visual inspection Resp normal respiratory effort Effort and Inspection: able to speak in complete sentences Auscultation: clear to auscultation bilaterally Cardio regular rate and regular rhythm Palpation: normal PMI Rate: regular rate Rhythm: regular rhythm GI Palpation: soft and no hepatosplenomegaly Back/Spine Cervical Spine: cervical ROM normal Thoracic Spine / Upper Back: normal to inspection Lumbar Spine / Lower Back: normal to inspection Extremity General Extremity: normal exam except as noted, edema and other findings Other Details: Open wounds x 3 left lower leg Skin no rashes or lesions noted Skin Narrative: Open wounds medial superior and inferior left lower leg with eschar and darkened erythema around the wound base. Legs are extremely edematous left greater than right. Neuro oriented x3 Psych Appearance: grossly normal Speech: normal speech Thought Content: normal thought content Judgement: judgement good Debridement Note Debridement Note Wound debrided: Medial left lower leg wound traumatic Type of Debridement: Excisional debridement Anesthesia Used: 5% Lidocaine Gel Depth: in the subcutaneous layer Percentage of wound debrided: 100 Instrument Used: 5mm curette Tissue Removed: Fibrin Severity: Fat Layer Exposed Amount of bleeding with debridement: None Bleeding Controlled with: Compression and gauze Patient tolerated procedure: Patient tolerated procedure well Post-Debridement Measurements and Additional Note: Post-Debridement Measurements/Treatment [facility] Nurse 1 - General Ulcer Assessment Start: 03/02/25 09:31 Freq: Status: Active Protocol: .GIRISH Activity Type Activity Date Activity User E-sign Co-sign Detail Recorded Client Recorded Date Recorded By Document 03/02/25 09:31 RB [id number] 03/02/25 09:35 RB Document 03/09/25 09:18 KW [id number] 03/09/25 09:27 KW 03/02/25 03/09/25 09:31 09:18 - Today's Visit Information Type of service Follow-up Visit Follow-up Visit (Physician/CENTRAL SUPPLY MANAGER (Physician/CENTRAL SUPPLY MANAGER ) ) Arrival Mode Ambulatory Ambulatory Transfer Assistance None Patient Identification Verified (Name & Yes Yes ) Patient Requires Transmission-Based No Precautions Vital Signs Temperature (97.8 F-99.1 F) 96.8 F L 96.7 F L Temperature Source Temporal Temporal Pulse Rate (60-100) 84 91 Pulse Location Monitor Monitor Respiratory Rate (12-18) 18 16 Respiratory rate source Observation Observation Oxygen Delivery Method Room Air Blood Pressure (90/60-120/80) 129/71 H 108/58 L Blood Pressure Mean (mm Hg) 90 74 Source Monitor Monitor Position Semi-Fowlers Semi-Fowlers Blood Pressure Location Left Arm Left Arm History Since Last Visit- (Skip if this is Patient's initial visit) Have you changed medications since your No No last visit? Any new allergies or adverse reactions No No Had a fall/change in ADL's that may No No increase risk of falls Signs or symptoms of abuse and/or No No neglect since last visit Have you been in the hospital since your No No last visit? Has dressing in place as prescribed Yes Yes Has compression in place as prescribed Yes Yes Has offloadiing in place as prescribed N/A N/A Experienced any changes in pain level or No No management Left Footwear Regular Shoe Regular Shoe Right Footwear Regular Shoe Regular Shoe Pain Scale: 0-10 Numeric Is Patient Pain Free? Yes Yes WC - Nurse 1 - General Ulcer Measurement Start: 03/02/25 09:31 Freq: Status: Active Protocol: Activity Type Activity Date Activity User E-sign Co-sign Detail Recorded Client Recorded Date Recorded By Document 03/02/25 09:31 RB [id number] 03/02/25 09:35 RB Document 03/09/25 09:18 KW [id number] 03/09/25 09:27 KW 03/02/25 03/09/25 09:31 09:18 Wound Center Nurse 1 LEFT INF LE -Combined with other wound No -Current Size (cm) - Length 1 0.5 -Current Size (cm) - Width 1.1 0.8 -Current Size (cm) - Depth 0.1 0.1 -Total Square Cm 1.1 0.40 -Photo Taken Yes -Tunneling No -Undermining/Tunneling No -Circular Undermining No -Exudate Amt Medium Medium -Exudate Type Serosanguineous Serosanguineous -Wound Margin Distinct, Distinct, Outline Outline Attached Attached -Granulation Amt Medium (34-66%) -Granulation Quality [place] Hyper- granulation,Red -Slough/Fibrin Yes -Necrosis Amt Medium (34-66%) -Necrotic Tissue Type Adherent Slough -Structure Exposed N/A -Texture (Renuka-wound Skin Appearance) Assessed, Assessed Scarring -Moisture (Renuka-wound Skin Appearance) Assessed Assessed -Color (Renuka-wound Skin Appearance) Assessed Assessed, Hemosiderin Staining -Temperature (Renuka-wound Skin No Abnormality No Abnormality Appearance) (Pt Warm) (Pt Warm) -Tenderness on Palpation (Renuka-wound No No Skin Appearance) -Ulcer Cleansing Wound Cleanser Soap and Water -Foul Odor after Cleansing No No -Anesthetic Used 5% Lidocaine 5% Lidocaine Gel Gel LEFT SUP LE -Combined with other wound No -Current Size (cm) - Length 0.7 0.5 -Current Size (cm) - Width 1.1 0.8 -Current Size (cm) - Depth 0.1 0.1 -Total Square Cm 0.77 0.40 -Photo Taken Yes -Tunneling No -Undermining/Tunneling No -Circular Undermining No -Exudate Amt Medium Medium -Exudate Type Serosanguineous Serosanguineous -Wound Margin Distinct, Distinct, Outline Outline Attached Attached -Granulation Amt Medium (34-66%) Large (67-100%) -Granulation Quality [place] Red -Slough/Fibrin Yes -Necrosis Amt Medium (34-66%) -Necrotic Tissue Type Adherent Slough -Structure Exposed N/A -Texture (Renuka-wound Skin Appearance) Assessed, Assessed Scarring -Moisture (Renuka-wound Skin Appearance) Assessed Assessed -Color (Renuka-wound Skin Appearance) Assessed Assessed, Hemosiderin Staining -Temperature (Renuka-wound Skin No Abnormality No Abnormality Appearance) (Pt Warm) (Pt Warm) -Tenderness on Palpation (Renuka-wound No No Skin Appearance) -Ulcer Cleansing Wound Cleanser Soap and Water -Foul Odor after Cleansing No No -Anesthetic Used 5% Lidocaine 5% Lidocaine Gel Gel LEFT MEDIAL CLUSTER LE -Combined with other wound No -Current Size (cm) - Length 2.6 2.1 -Current Size (cm) - Width 2.6 2.3 -Current Size (cm) - Depth 0.5 0.5 -Total Square Cm 6.76 4.83 -Date of Last Picture (Recall this 03/09/25 field) -Photo Taken Yes -Tunneling No -Undermining/Tunneling No -Circular Undermining No -Exudate Amt Medium Medium -Exudate Type Serosanguineous Serosanguineous -Wound Margin Distinct, Distinct, Outline Outline Attached Attached -Granulation Amt Medium (34-66%) Large (67-100%) -Granulation Quality [place] Red -Slough/Fibrin Yes -Necrosis Amt Medium (34-66%) Small (1-33%) -Necrotic Tissue Type Adherent Slough Adherent Slough -Structure Exposed N/A -Texture (Renuka-wound Skin Appearance) Assessed, Assessed Scarring -Moisture (Renuka-wound Skin Appearance) Assessed Assessed -Color (Renuka-wound Skin Appearance) Assessed Assessed, Hemosiderin Staining -Temperature (Renuka-wound Skin No Abnormality No Abnormality Appearance) (Pt Warm) (Pt Warm) -Tenderness on Palpation (Renuka-wound No No Skin Appearance) -Ulcer Cleansing Wound Cleanser Soap and Water -Foul Odor after Cleansing No No -Anesthetic Used 5% Lidocaine 5% Lidocaine Gel Gel Lower Limb Edema Present Yes Left Calf (cm) 46.5 44.5 Left Ankle (cm) 27.8 24.5 WC - Nurse 2 - General Ulcer CM Notes Start: 03/02/25 09:31 Freq: Status: Active Protocol: Activity Type Activity Date Activity User E-sign Co-sign Detail Recorded Client Recorded Date Recorded By Document 03/02/25 09:40 [facility] [id number] 03/02/25 09:50 BM Document 03/09/25 09:43 [facility] [id number] 03/09/25 10:04 [facility] 03/02/25 03/09/25 09:40 09:43 Wound Center Nurse 2 LEFT INF LE -Time 09:41 09:44 -Correct Patient Yes Yes -Correct Side, Site, Position Yes Yes -Correct Procedure Yes Yes -Procedure Performed Yes Yes -Type of Procedure Debridement Debridement -Clinical Debridement Subcutaneous Subcutaneous -Tissue Removed Subcutaneous Subcutaneous -Post Debridement (cm) - Length 1 0.8 -Post Debridement (cm) - Width 1 1 -Post Debridement (cm) - Depth 0.1 0.1 -Total Square (Post) (cm) 1 0.8 -Area of Debridement (cm) - Length 1 0.8 -Area of Debridement (cm) - Width 1 1 -Total Square (Area) (cm) 1 0.8 -Tunneling No No -Undermining/Tunneling No No -Circular Undermining No No -Wound/Ulcer Outcome Not Healed Not Healed -Ulcer Cleansing Rinsed/ Rinsed/ Irrigated with Irrigated with Saline Saline -Foul Odor after Cleansing No No -Bioengineered Tissue No No -Bleeding Controlled with Pressure Pressure -Treatment Response Procedure Procedure Tolerated Well Tolerated Well -Debridement - Subq, 1st 20sq cm Yes Yes LEFT SUP LE -Time 09:41 09:44 -Correct Patient Yes Yes -Correct Side, Site, Position Yes Yes -Correct Procedure Yes Yes -Procedure Performed Yes Yes -Type of Procedure Debridement Debridement -Clinical Debridement Subcutaneous Subcutaneous -Tissue Removed Subcutaneous Subcutaneous -Post Debridement (cm) - Length 0.7 0.7 -Post Debridement (cm) - Width 1.2 0.9 -Post Debridement (cm) - Depth 0.1 0.1 -Total Square (Post) (cm) 0.84 0.63 -Area of Debridement (cm) - Length 0.7 0.7 -Area of Debridement (cm) - Width 1.2 0.9 -Total Square (Area) (cm) 0.84 0.63 -Tunneling No No -Undermining/Tunneling No No -Circular Undermining No No -Wound/Ulcer Outcome Not Healed Not Healed -Ulcer Cleansing Rinsed/ Rinsed/ Irrigated with Irrigated with Saline Saline -Foul Odor after Cleansing No No -Bioengineered Tissue No No -Bleeding Controlled with Pressure Pressure -Treatment Response Procedure Procedure Tolerated Well Tolerated Well -Debridement - Subq, 1st 20sq cm No No LEFT MEDIAL CLUSTER LE -Time 09:41 09:44 -Correct Patient Yes Yes -Correct Side, Site, Position Yes Yes -Correct Procedure Yes Yes -Procedure Performed Yes Yes -Type of Procedure Debridement Debridement -Clinical Debridement Muscle / Fascia Muscle / Fascia -Tissue Removed Muscle,Fascia Muscle,Fascia -Post Debridement (cm) - Length 2.7 2.3 -Post Debridement (cm) - Width 2.5 2.5 -Post Debridement (cm) - Depth 0.7 0.7 -Total Square (Post) (cm) 6.75 5.75 -Area of Debridement (cm) - Length 2.7 2.3 -Area of Debridement (cm) - Width 2.5 2.5 -Total Square (Area) (cm) 6.75 5.75 -Tunneling No No -Undermining/Tunneling No No -Circular Undermining No No -Wound/Ulcer Outcome Not Healed Not Healed -Ulcer Cleansing Rinsed/ Rinsed/ Irrigated with Irrigated with Saline Saline -Foul Odor after Cleansing No No -Bioengineered Tissue No Yes -Type of Bioengineered Tissue Epifix Mesh Epifix Mesh -Expiration Date 09/01/29 09/01/29 -Product Lot Number [id number] -Percent Used 100 100 -Lot number of Saline Used [id number] -Bleeding Controlled with Pressure Pressure -Treatment Response Procedure Procedure Tolerated Well Tolerated Well -Debridement - Muscle / Fascia, 1st No No 20sq cm -Apply Skin Sub - 1st 25 sq cm - Legs 1 1 -Epifix Mesh Application 1-4 (per sq 11 11 cm) Pain Scale: 0-10 Numeric Is Patient Pain Free? Yes Yes - Nurse 3 - General Ulcer D/C NN Start: 03/02/25 09:31 Freq: Status: Active Protocol: Activity Type Activity Date Activity User E-sign Co-sign Detail Recorded Client Recorded Date Recorded By Document 03/02/25 10:06 DL [id number] 03/02/25 10:08 DL Document 03/09/25 10:16 DL [id number] 03/09/25 10:19 DL 03/02/25 03/09/25 10:06 10:16 Wound Care Center Nurse 3 LEFT INF LE -Foul Odor after Cleansing No No -Primary Dressing Applied Aquacel Extra Aquacel Extra -Other Dressing Epi EPIFIX -Primary Dressing Covered/Secured with Dry Gauze & Dry Gauze & Roll Gauze, Roll Gauze, Secured with Secured with Tape Tape -Other Covering abd -Aquacel Extra 1 1 LEFT SUP LE -Ulcer Cleansing Not Cleansed -Foul Odor after Cleansing No No -Other Dressing Epi/aquacel ex EPIFIX -Primary Dressing Covered/Secured with Dry Gauze & Dry Gauze & Roll Gauze, Roll Gauze, Secured with Secured with Tape Tape -Other Covering ABD LEFT MEDIAL CLUSTER LE -Foul Odor after Cleansing No No -Other Dressing Epi/aquacelEX EPIFIX -Primary Dressing Covered/Secured with Dry Gauze & Dry Gauze & Roll Gauze, Roll Gauze, Secured with Secured with Tape Tape -Other Covering ABD LLE -Tubular Bandage Double Layer Double Layer -Size of Tubigrip Used Size E Size F -Size E ($) 2 -Size F ($) 2 Pain Scale: 0-10 Numeric Is Patient Pain Free? Yes Yes - Visit Discharge Discharge Condition Stable Stable Ambulatory Status Ambulatory Ambulatory Transportation Private Auto Private Auto Additional Wound Wound debrided: Inferior left lower leg wound trauma Type of Debridement: Excisional debridement Anesthesia Used: 5% Lidocaine Gel Depth: Down to and including healthy tissue and in the subcutaneous layer Percentage of wound debrided: 100 Instrument Used: 5mm curette Tissue Removed: Fibrin Severity: Fat Layer Exposed Amount of bleeding with debridement: Mild Bleeding Controlled with: Compression and gauze Patient tolerated procedure: Patient tolerated procedure well Additional Wound Wound debrided: Superior left lower leg traumatic wound Laterality: Left Type of Debridement: Excisional debridement Anesthesia Used: 5% Lidocaine Gel Depth: Down to and including healthy tissue and in the subcutaneous layer Percentage of wound debrided: 100 Instrument Used: 5mm curette Tissue Removed: Fibrin Severity: Fat Layer Exposed Amount of bleeding with debridement: Mild Bleeding Controlled with: Compression and gauze Patient tolerated procedure: Patient tolerated procedure well Assessment/Plan Assessment/Plan (1) Traumatic skin ulcer with fat layer exposed: CODE(S): L98.492 - Non-pressure chronic ulcer of skin of other sites with fat layer exposed PLAN: Wash only the inferior and superior wounds with antibacterial soap and water pack all wounds with Dakin soaked half-inch iodoform gauze in the wound itself then cover with ABD and Steven Continue taking metronidazole Tubigrip double layer to left leg every day #5 EpiFix was applied to the medial wound base and covered with wound veil and Steri-Strips and a foam dressing covered. Patient was instructed to get a cast Cover to take showers. Patient was instructed not to touch any of the Steri-Strips or lower she is allowed to change the outside dressing if he gets soiled or wet. Patient instructed to follow-up in 1 week (2) Type 2 diabetes mellitus with hyperglycemia: CODE(S): E11.65 - Type 2 diabetes mellitus with hyperglycemia QUALIFIERS: Diabetes mellitus [facility] insulin use: without [place] supervisor use Qualified Code(s): E11.65 - Type 2 diabetes mellitus with hyperglycemia (3) Lower extremity edema: CODE(S): R60.0 - Localized edema (4) Peripheral vascular disease: CODE(S): I73.9 - Peripheral vascular disease, unspecified
[2025-03-16 09:17] VITALS: BP 115/63; PULSE 78; RESP 16; TEMP 36.5
--- NOTE | 2025-03-16 10:49 | PN.PCM_ITS ---
History of Present Illness Date of Service: 03/16/25 Chief Complaint: Left leg wound from trauma History of Wound: 69-year-old white female that fell down her carpeted steps December 25 had developed blood blisters over the left leg medially distal half both legs are swollen but the left leg now is more swollen than the right leg she has been trying to take care of them herself with just antibiotic ointments but then they opened and she is got dark and eschar on them and followed up with her family doctor that referred her here and started her on doxycycline told her to stay on it until seen. She is also diabetic and on insulin and Ozempic and other meds that would not interfere with treatment or healing. Progress of Wound: So all the wounds have measured the same and the medial wound is much shallower than it had been in the past the other 2 are more superficial now and just needs skin to cover. No sign of infection no smell no odor good flesh color around the parameters of the wounds everything looks good we will continue using the EpiFix. Subjective Subjective Patient just wants it to be healed before she leaves on her trip to [place] in April Objective Data Objective Data All are closing nicely she still has quite the divot in her leg that is filling in with the epi fix patient is taking her protein drinks and keeping her dressings on and her compression on. Vital Signs: Vital Signs Temp Pulse Resp BP O2 Del Method 97.7 F L 78 16 115/63 Room Air 03/16/25 09:17 03/16/25 09:17 03/16/25 09:17 03/16/25 09:17 03/09/25 09:18 Oxygen Delivery Method Room Air Physical Exam Const oriented x3 General Appearance: cooperative Exam Limitations: no limitations HEENT normocephalic Head and Scalp: normal to inspection Face and Sinus: normal facial exam Eyes General Eye: normal appearance of both eyes Neck full ROM General: normal visual inspection Resp normal respiratory effort Effort and Inspection: able to speak in complete sentences Auscultation: clear to auscultation bilaterally Cardio regular rate and regular rhythm Palpation: normal PMI Rate: regular rate Rhythm: regular rhythm GI Palpation: soft and no hepatosplenomegaly Back/Spine Cervical Spine: cervical ROM normal Thoracic Spine / Upper Back: normal to inspection Lumbar Spine / Lower Back: normal to inspection Extremity General Extremity: normal exam except as noted, edema and other findings Other Details: Open wounds x 3 left lower leg Skin no rashes or lesions noted Skin Narrative: Open wounds medial superior and inferior left lower leg with eschar and darkened erythema around the wound base. Legs are extremely edematous left greater than right. Neuro oriented x3 Psych Appearance: grossly normal Speech: normal speech Thought Content: normal thought content Judgement: judgement good Debridement Note Debridement Note Wound debrided: Medial left lower leg wound traumatic Type of Debridement: Excisional debridement Anesthesia Used: 5% Lidocaine Gel Depth: in the subcutaneous layer Percentage of wound debrided: 100 Instrument Used: 5mm curette Tissue Removed: Fibrin Severity: Fat Layer Exposed Amount of bleeding with debridement: None Bleeding Controlled with: Compression and gauze Patient tolerated procedure: Patient tolerated procedure well Post-Debridement Measurements and Additional Note: Post-Debridement Measurements/Treatment - Nurse 1 - General Ulcer Assessment Start: 03/02/25 09:31 Freq: Status: Active Protocol: PRAVEEN.GIRISH Activity Type Activity Date Activity User E-sign Co-sign Detail Recorded Client Recorded Date Recorded By Document 03/02/25 09:31 RB [id number] 03/02/25 09:35 RB Document 03/09/25 09:18 KW [id number] 03/09/25 09:27 KW Document 03/16/25 09:17 DL [id number] 03/16/25 09:25 DL 03/02/25 03/09/25 03/16/25 09:31 09:18 09:17 - Today's Visit Information Type of service Follow-up Visit Follow-up Visit Follow-up Visit (Physician/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 (Physician/COAL BRIQUETTE 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 (Physician/COAL BRIQUETTE 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 ) ) ) Arrival Mode Ambulatory Ambulatory Ambulatory Transfer Assistance None None Patient Identification Verified (Name & Yes Yes Yes ) Patient Requires Transmission-Based No No Precautions Vital Signs Temperature (97.8 F-99.1 F) 96.8 F L 96.7 F L 97.7 F L Temperature Source Temporal Temporal Temporal Pulse Rate (60-100) 84 91 78 Pulse Location Monitor Monitor Monitor Respiratory Rate (12-18) 18 16 16 Respiratory rate source Observation Observation Observation Oxygen Delivery Method Room Air Blood Pressure (90/60-120/80) 129/71 H 108/58 L 115/63 Blood Pressure Mean (mm Hg) 90 74 80 Source Monitor Monitor Monitor Position Semi-Fowlers Semi-Fowlers Blood Pressure Location Left Arm Left Arm History Since Last Visit- (Skip if this is Patient's initial visit) Have you changed medications since your No No No last visit? Any new allergies or adverse reactions No No No Had a fall/change in ADL's that may No No No increase risk of falls Signs or symptoms of abuse and/or No No No neglect since last visit Have you been in the hospital since your No No No last visit? Has dressing in place as prescribed Yes Yes Yes Has compression in place as prescribed Yes Yes Yes Has offloadiing in place as prescribed N/A N/A N/A Experienced any changes in pain level or No No No management Left Footwear Regular Shoe Regular Shoe Right Footwear Regular Shoe Regular Shoe Pain Scale: 0-10 Numeric Is Patient Pain Free? Yes Yes Yes WC - Nurse 1 - General Ulcer Measurement Start: 03/02/25 09:31 Freq: Status: Active Protocol: Activity Type Activity Date Activity User E-sign Co-sign Detail Recorded Client Recorded Date Recorded By Document 03/02/25 09:31 RB [id number] 03/02/25 09:35 RB Document 03/09/25 09:18 KW [id number] 03/09/25 09:27 KW Document 03/16/25 09:17 DL [id number] 03/16/25 09:25 DL 03/02/25 03/09/25 03/16/25 09:31 09:18 09:17 Wound Center Nurse 1 LEFT INF LE -Combined with other wound No -Current Size (cm) - Length 1 0.5 0.7 -Current Size (cm) - Width 1.1 0.8 1 -Current Size (cm) - Depth 0.1 0.1 0.1 -Total Square Cm 1.1 0.40 0.7 -Photo Taken Yes Yes -Tunneling No -Undermining/Tunneling No -Circular Undermining No -Exudate Amt Medium Medium Medium -Exudate Type Serosanguineous Serosanguineous Serosanguineous -Wound Margin Distinct, Distinct, Distinct, Outline Outline Outline Attached Attached Attached -Granulation Amt Medium (34-66%) Large (67-100%) -Granulation Quality [place] Hyper- Red granulation,Red -Slough/Fibrin Yes -Necrosis Amt Medium (34-66%) None Present (0 %) -Necrotic Tissue Type Adherent Slough -Structure Exposed N/A N/A -Texture (Renuka-wound Skin Appearance) Assessed, Assessed Scarring Scarring -Moisture (Renuka-wound Skin Appearance) Assessed Assessed No Abnormality -Color (Renuka-wound Skin Appearance) Assessed Assessed, Hemosiderin Hemosiderin Staining Staining -Temperature (Renuka-wound Skin No Abnormality No Abnormality No Abnormality Appearance) (Pt Warm) (Pt Warm) (Pt Warm) -Tenderness on Palpation (Renuka-wound No No No Skin Appearance) -Ulcer Cleansing Wound Cleanser Soap and Water Soap and Water -Foul Odor after Cleansing No No No -Anesthetic Used 5% Lidocaine 5% Lidocaine 5% Lidocaine Gel Gel Gel LEFT SUP LE -Combined with other wound No -Current Size (cm) - Length 0.7 0.5 0.5 -Current Size (cm) - Width 1.1 0.8 0.7 -Current Size (cm) - Depth 0.1 0.1 0.1 -Total Square Cm 0.77 0.40 0.35 -Photo Taken Yes Yes -Tunneling No -Undermining/Tunneling No -Circular Undermining No -Exudate Amt Medium Medium Small -Exudate Type Serosanguineous Serosanguineous Serosanguineous -Wound Margin Distinct, Distinct, Distinct, Outline Outline Outline Attached Attached Attached -Granulation Amt Medium (34-66%) Large (67-100%) Large (67-100%) -Granulation Quality [place] Red Red -Slough/Fibrin Yes -Necrosis Amt Medium (34-66%) None Present (0 %) -Necrotic Tissue Type Adherent Slough -Structure Exposed N/A N/A -Texture (Renuka-wound Skin Appearance) Assessed, Assessed Scarring Scarring -Moisture (Renuka-wound Skin Appearance) Assessed Assessed No Abnormality -Color (Renuka-wound Skin Appearance) Assessed Assessed, Hemosiderin Hemosiderin Staining Staining -Temperature (Renuka-wound Skin No Abnormality No Abnormality No Abnormality Appearance) (Pt Warm) (Pt Warm) (Pt Warm) -Tenderness on Palpation (Renuka-wound No No Skin Appearance) -Ulcer Cleansing Wound Cleanser Soap and Water Soap and Water -Foul Odor after Cleansing No No No -Anesthetic Used 5% Lidocaine 5% Lidocaine 5% Lidocaine Gel Gel Gel LEFT MEDIAL CLUSTER LE -Combined with other wound No -Current Size (cm) - Length 2.6 2.1 1.8 -Current Size (cm) - Width 2.6 2.3 2.5 -Current Size (cm) - Depth 0.5 0.5 0.6 -Total Square Cm 6.76 4.83 4.50 -Date of Last Picture (Recall this 03/09/25 field) -Photo Taken Yes Yes -Tunneling No -Undermining/Tunneling No -Circular Undermining No -Exudate Amt Medium Medium Medium -Exudate Type Serosanguineous Serosanguineous Serosanguineous -Wound Margin Distinct, Distinct, Distinct, Outline Outline Outline Attached Attached Attached -Granulation Amt Medium (34-66%) Large (67-100%) Medium (34-66%) -Granulation Quality [place] Red Red -Slough/Fibrin Yes -Necrosis Amt Medium (34-66%) Small (1-33%) Medium (34-66%) -Necrotic Tissue Type Adherent Slough Adherent Slough Adherent Slough -Structure Exposed N/A N/A -Texture (Renuka-wound Skin Appearance) Assessed, Assessed Scarring Scarring -Moisture (Renuka-wound Skin Appearance) Assessed Assessed No Abnormality -Color (Renuka-wound Skin Appearance) Assessed Assessed, Hemosiderin Hemosiderin Staining Staining -Temperature (Renuka-wound Skin No Abnormality No Abnormality No Abnormality Appearance) (Pt Warm) (Pt Warm) (Pt Warm) -Tenderness on Palpation (Renuka-wound No No No Skin Appearance) -Ulcer Cleansing Wound Cleanser Soap and Water Soap and Water -Foul Odor after Cleansing No No No -Anesthetic Used 5% Lidocaine 5% Lidocaine 5% Lidocaine Gel Gel Gel Lower Limb Edema Present Yes Left Calf (cm) 46.5 44.5 43 Left Ankle (cm) 27.8 24.5 26 WC - Nurse 2 - General Ulcer CM Notes Start: 03/02/25 09:31 Freq: Status: Active Protocol: Activity Type Activity Date Activity User E-sign Co-sign Detail Recorded Client Recorded Date Recorded By Document 03/02/25 09:40 [facility] [id number] 03/02/25 09:50 [facility] Document 03/09/25 09:43 [facility] [id number] 03/09/25 10:04 BM Document 03/16/25 09:31 [facility] [id number] 03/16/25 09:44 BMF 03/02/25 03/09/25 03/16/25 09:40 09:43 09:31 Wound Center Nurse 2 LEFT INF LE -Time 09:44 09:32 -Correct Patient Yes Yes Yes -Correct Side, Site, Position Yes Yes Yes -Correct Procedure Yes Yes Yes -Procedure Performed Yes Yes Yes -Type of Procedure Debridement Debridement Debridement -Clinical Debridement Subcutaneous Subcutaneous Subcutaneous -Tissue Removed Subcutaneous Subcutaneous Subcutaneous -Post Debridement (cm) - Length 1 0.8 0.8 -Post Debridement (cm) - Width 1 1 1 -Post Debridement (cm) - Depth 0.1 0.1 0.1 -Total Square (Post) (cm) 1 0.8 0.8 -Area of Debridement (cm) - Length 1 0.8 0.8 -Area of Debridement (cm) - Width 1 1 1 -Total Square (Area) (cm) 1 0.8 0.8 -Tunneling No No No -Undermining/Tunneling No No No -Circular Undermining No No No -Wound/Ulcer Outcome Not Healed Not Healed Not Healed -Ulcer Cleansing Rinsed/ Rinsed/ Rinsed/ Irrigated with Irrigated with Irrigated with Saline Saline Saline -Foul Odor after Cleansing No No No -Bioengineered Tissue No No No -Bleeding Controlled with Pressure Pressure Pressure -Treatment Response Procedure Procedure Procedure Tolerated Well Tolerated Well Tolerated Well -Debridement - Subq, 1st 20sq cm Yes Yes No LEFT SUP LE -Time 09:44 09:32 -Correct Patient Yes Yes Yes -Correct Side, Site, Position Yes Yes Yes -Correct Procedure Yes Yes Yes -Procedure Performed Yes Yes Yes -Type of Procedure Debridement Debridement Debridement -Clinical Debridement Subcutaneous Subcutaneous Subcutaneous -Tissue Removed Subcutaneous Subcutaneous Subcutaneous -Post Debridement (cm) - Length 0.7 0.7 0.8 -Post Debridement (cm) - Width 1.2 0.9 0.9 -Post Debridement (cm) - Depth 0.1 0.1 0.1 -Total Square (Post) (cm) 0.84 0.63 0.72 -Area of Debridement (cm) - Length 0.7 0.7 0.8 -Area of Debridement (cm) - Width 1.2 0.9 0.9 -Total Square (Area) (cm) 0.84 0.63 0.72 -Tunneling No No No -Undermining/Tunneling No No No -Circular Undermining No No No -Wound/Ulcer Outcome Not Healed Not Healed Not Healed -Ulcer Cleansing Rinsed/ Rinsed/ Rinsed/ Irrigated with Irrigated with Irrigated with Saline Saline Saline -Foul Odor after Cleansing No No No -Bioengineered Tissue No No No -Bleeding Controlled with Pressure Pressure Pressure -Treatment Response Procedure Procedure Procedure Tolerated Well Tolerated Well Tolerated Well -Debridement - Subq, 1st 20sq cm No No Yes LEFT MEDIAL CLUSTER LE -Time 09:41 09:44 09:33 -Correct Patient Yes Yes Yes -Correct Side, Site, Position Yes Yes Yes -Correct Procedure Yes Yes Yes -Procedure Performed Yes Yes Yes -Type of Procedure Debridement Debridement Debridement -Clinical Debridement Muscle / Fascia Muscle / Fascia Muscle / Fascia -Tissue Removed Muscle,Fascia Muscle,Fascia Muscle,Fascia -Post Debridement (cm) - Length 2.7 2.3 2 -Post Debridement (cm) - Width 2.5 2.5 2 -Post Debridement (cm) - Depth 0.7 0.7 0.7 -Total Square (Post) (cm) 6.75 5.75 4 -Area of Debridement (cm) - Length 2.7 2.3 2 -Area of Debridement (cm) - Width 2.5 2.5 2 -Total Square (Area) (cm) 6.75 5.75 4 -Tunneling No No No -Undermining/Tunneling No No No -Circular Undermining No No No -Wound/Ulcer Outcome Not Healed Not Healed Not Healed -Ulcer Cleansing Rinsed/ Rinsed/ Rinsed/ Irrigated with Irrigated with Irrigated with Saline Saline Saline -Foul Odor after Cleansing No No No -Bioengineered Tissue No Yes Yes -Type of Bioengineered Tissue Epifix Mesh Epifix Mesh Epifix Mesh -Expiration Date 09/01/29 09/01/29 -Product Lot Number [id number] -Percent Used 100 100 100 -Lot number of Saline Used [id number] -Bleeding Controlled with Pressure Pressure Pressure -Treatment Response Procedure Procedure Procedure Tolerated Well Tolerated Well Tolerated Well -Debridement - Muscle / Fascia, 1st No No No 20sq cm -Apply Skin Sub - 1st 25 sq cm - Legs 1 1 1 -Epifix Mesh Application 1-4 (per sq 11 11 11 cm) Pain Scale: 0-10 Numeric Is Patient Pain Free? Yes Yes Yes WC - Nurse 3 - General Ulcer D/C NN Start: 03/02/25 09:31 Freq: Status: Active Protocol: Activity Type Activity Date Activity User E-sign Co-sign Detail Recorded Client Recorded Date Recorded By Document 03/02/25 10:06 DL [id number] 03/02/25 10:08 DL Document 03/09/25 10:16 DL [id number] 03/09/25 10:19 DL Document 03/16/25 09:50 ML [id number] 03/16/25 09:53 ML 03/02/25 03/09/25 03/16/25 10:06 10:16 09:50 Wound Care Center Nurse 3 LEFT INF LE -Ulcer Cleansing Rinsed/ Irrigated with Saline -Foul Odor after Cleansing No No -Primary Dressing Applied Aquacel Extra Aquacel Extra -Other Dressing Epi EPIFIX -Primary Dressing Covered/Secured with Dry Gauze & Dry Gauze & Dry Gauze & Roll Gauze, Roll Gauze, Roll Gauze, Secured with Secured with Secured with Tape Tape Tape -Other Covering abd -Aquacel Extra 1 1 1 LEFT SUP LE -Ulcer Cleansing Not Cleansed Rinsed/ Irrigated with Saline -Foul Odor after Cleansing No No -Primary Dressing Applied Aquacel Extra -Other Dressing Epi/aquacel ex EPIFIX -Primary Dressing Covered/Secured with Dry Gauze & Dry Gauze & Dry Gauze, Roll Gauze, Roll Gauze, Secured with Secured with Secured with Tape Tape Tape -Other Covering ABD -Aquacel Extra 0 LEFT MEDIAL CLUSTER LE -Ulcer Cleansing Rinsed/ Irrigated with Saline -Foul Odor after Cleansing No No -Primary Dressing Applied Aquacel Extra -Other Dressing Epi/aquacelEX EPIFIX -Primary Dressing Covered/Secured with Dry Gauze & Dry Gauze & Dry Gauze & Roll Gauze, Roll Gauze, Roll Gauze, Secured with Secured with Secured with Tape Tape Tape -Other Covering ABD -Aquacel Extra 1 LLE -Tubular Bandage Double Layer Double Layer Single Layer -Size of Tubigrip Used Size E Size F Size F -Size E ($) 2 -Size F ($) 2 1 Pain Scale: 0-10 Numeric Is Patient Pain Free? Yes Yes Yes WC - Visit Discharge Discharge Condition Stable Stable Ambulatory Status Ambulatory Ambulatory Transportation Private Auto Private Auto Additional Wound Wound debrided: Inferior left lower leg wound trauma Type of Debridement: Excisional debridement Anesthesia Used: 5% Lidocaine Gel Depth: Down to and including healthy tissue and in the subcutaneous layer Percentage of wound debrided: 100 Instrument Used: 5mm curette Tissue Removed: Fibrin Severity: Fat Layer Exposed Amount of bleeding with debridement: Mild Bleeding Controlled with: Compression and gauze Patient tolerated procedure: Patient tolerated procedure well Additional Wound Wound debrided: Superior left lower leg traumatic wound Laterality: Left Type of Debridement: Excisional debridement Anesthesia Used: 5% Lidocaine Gel Depth: Down to and including healthy tissue and in the subcutaneous layer Percentage of wound debrided: 100 Instrument Used: 5mm curette Tissue Removed: Fibrin Severity: Fat Layer Exposed Amount of bleeding with debridement: Mild Bleeding Controlled with: Compression and gauze Patient tolerated procedure: Patient tolerated procedure well Assessment/Plan Assessment/Plan (1) Traumatic skin ulcer with fat layer exposed: CODE(S): L98.492 - Non-pressure chronic ulcer of skin of other sites with fat layer exposed PLAN: Wash only the inferior and superior wounds with antibacterial soap and water pack all wounds with Dakin soaked half-inch iodoform gauze in the wound itself then cover with ABD and Steven Continue taking metronidazole Tubigrip double layer to left leg every day #6 EpiFix was applied to the medial wound base and covered with wound veil and Steri-Strips and a foam dressing covered. Patient was instructed to get a cast Cover to take showers. Patient was instructed not to touch any of the Steri- Strips or lower she is allowed to change the outside dressing if he gets soiled or wet. Patient instructed to follow-up in 1 week (2) Type 2 diabetes mellitus with hyperglycemia: CODE(S): E11.65 - Type 2 diabetes mellitus with hyperglycemia QUALIFIERS: Diabetes mellitus longterm insulin use: without continuous churn buttermaker use Qualified Code(s): E11.65 - Type 2 diabetes mellitus with hyperglycemia (3) Lower extremity edema: CODE(S): R60.0 - Localized edema (4) Peripheral vascular disease: CODE(S): I73.9 - Peripheral vascular disease, unspecified (5) Nonhealing nonsurgical wound with fat layer exposed: CODE(S): T14.8XXA - Other injury of unspecified body region, initial encounter
--- NOTE | 2025-03-16 14:23 | WC ---
PHOTO 03/16/25 [email or web address]
[2025-03-23 09:30] VITALS: BP 178/53; PULSE 96; RESP 18; TEMP 35.8
--- NOTE | 2025-03-23 10:55 | PCM.WC.PN ---
History of Present Illness Date of Service: 03/23/25 Chief Complaint: Left leg wound from trauma History of Wound: 69-year-old white female that fell down her carpeted steps December 25 had developed blood blisters over the left leg medially distal half both legs are swollen but the left leg now is more swollen than the right leg she has been trying to take care of them herself with just antibiotic ointments but then they opened and she is got dark and eschar on them and followed up with her family doctor that referred her here and started her on doxycycline told her to stay on it until seen. She is also diabetic and on insulin and Ozempic and other meds that would not interfere with treatment or healing. Progress of Wound: The 2 superior inferior wounds are healed and just need to have protection for the next week over the new skin. No sign of infection no smell no odor good flesh color around the parameters of the medial wound everything looks good we will continue using the EpiFix. Wound is more shallow and measurements are smaller. Subjective Subjective Patient is pleased with outcomes and is anxious to get the third wound healed. Objective Data Objective Data Again no sign of infection in the medial wound is still has some depth but more shallow smaller parameters she is blending well with her regular skin and healing well using the epi fix. The inferior and superior wounds are healed and patient will be discharged on those 2. Vital Signs: Vital Signs Temp Pulse Resp BP O2 Del Method 96.4 F L 96 18 178/53 H Room Air 03/23/25 09:30 03/23/25 09:30 03/23/25 09:30 03/23/25 09:30 03/23/25 09:30 Oxygen Delivery Method Room Air Lab / Micro Data Attestation: I reviewed the patient's lab results. Physical Exam Const oriented x3 General Appearance: cooperative Exam Limitations: no limitations HEENT normocephalic Head and Scalp: normal to inspection Face and Sinus: normal facial exam Eyes General Eye: normal appearance of both eyes Neck full ROM General: normal visual inspection Resp normal respiratory effort Effort and Inspection: able to speak in complete sentences Auscultation: clear to auscultation bilaterally Cardio regular rate and regular rhythm Palpation: normal PMI Rate: regular rate Rhythm: regular rhythm GI Palpation: soft and no hepatosplenomegaly Back/Spine Cervical Spine: cervical ROM normal Thoracic Spine / Upper Back: normal to inspection Lumbar Spine / Lower Back: normal to inspection Extremity General Extremity: normal exam except as noted, edema and other findings Other Details: Open wounds x 3 left lower leg Skin no rashes or lesions noted Skin Narrative: Open wounds medial superior and inferior left lower leg with eschar and darkened erythema around the wound base. Legs are extremely edematous left greater than right. Neuro oriented x3 Psych Appearance: grossly normal Speech: normal speech Thought Content: normal thought content Judgement: judgement good Debridement Note Debridement Note Wound debrided: Medial left lower leg wound traumatic Type of Debridement: Excisional debridement Anesthesia Used: 5% Lidocaine Gel Depth: in the subcutaneous layer Percentage of wound debrided: 100 Instrument Used: 5mm curette Tissue Removed: Fibrin Severity: Fat Layer Exposed Amount of bleeding with debridement: None Bleeding Controlled with: Compression and gauze Patient tolerated procedure: Patient tolerated procedure well Post-Debridement Measurements and Additional Note: Post-Debridement Measurements/Treatment - Nurse 1 - General Ulcer Assessment Start: 03/02/25 09:31 Freq: Status: Active Protocol: KITTY Activity Type Activity Date Activity User E-sign Co-sign Detail Recorded Client Recorded Date Recorded By Document 03/02/25 09:31 RB [id number] 03/02/25 09:35 RB Document 03/09/25 09:18 KW [id number] 03/09/25 09:27 KW Document 03/16/25 09:17 DL [id number] 03/16/25 09:25 DL Document 03/23/25 09:30 BMF [id number] 03/23/25 09:36 BMF 03/02/25 03/09/25 03/16/25 09:31 09:18 09:17 - Today's Visit Information Type of service Follow-up Visit Follow-up Visit Follow-up Visit (Physician/APPLICATIONS ENGINEER MANUFACTURING (Physician/APPLICATIONS ENGINEER MANUFACTURING (Physician/APPLICATIONS ENGINEER MANUFACTURING ) ) ) Arrival Mode Ambulatory Ambulatory Ambulatory Transfer Assistance None None Patient Identification Verified (Name & Yes Yes Yes ) Patient Requires Transmission-Based No No Precautions Vital Signs Temperature (97.8 F-99.1 F) 96.8 F L 96.7 F L 97.7 F L Temperature Source Temporal Temporal Temporal Pulse Rate (60-100) 84 91 78 Pulse Location Monitor Monitor Monitor Respiratory Rate (12-18) 18 16 16 Respiratory rate source Observation Observation Observation Oxygen Delivery Method Room Air Blood Pressure (90/60-120/80) 129/71 H 108/58 L 115/63 Blood Pressure Mean (mm Hg) 90 74 80 Source Monitor Monitor Monitor Position Semi-Fowlers Semi-Fowlers Blood Pressure Location Left Arm Left Arm History Since Last Visit- (Skip if this is Patient's initial visit) Have you changed medications since your No No No last visit? Any new allergies or adverse reactions No No No Had a fall/change in ADL's that may No No No increase risk of falls Signs or symptoms of abuse and/or No No No neglect since last visit Have you been in the hospital since your No No No last visit? Has dressing in place as prescribed Yes Yes Yes Has compression in place as prescribed Yes Yes Yes Has offloadiing in place as prescribed N/A N/A N/A Experienced any changes in pain level or No No No management Left Footwear Regular Shoe Regular Shoe Right Footwear Regular Shoe Regular Shoe Pain Scale: 0-10 Numeric Is Patient Pain Free? Yes Yes Yes 03/23/25 09:30 WC - Today's Visit Information Type of service Follow-up Visit (Physician/APPLICATIONS ENGINEER MANUFACTURING ) Arrival Mode Ambulatory Transfer Assistance None Patient Identification Verified (Name & Yes ) Patient Requires Transmission-Based No Precautions Vital Signs Temperature (97.8 F-99.1 F) 96.4 F L Temperature Source Temporal Pulse Rate (60-100) 96 Pulse Location Monitor Respiratory Rate (12-18) 18 Respiratory rate source Observation Oxygen Delivery Method Room Air Blood Pressure (90/60-120/80) 178/53 H Blood Pressure Mean (mm Hg) 94 Source Monitor Position Sitting Blood Pressure Location Left Arm History Since Last Visit- (Skip if this is Patient's initial visit) Have you changed medications since your No last visit? Any new allergies or adverse reactions No Had a fall/change in ADL's that may No increase risk of falls Signs or symptoms of abuse and/or No neglect since last visit Have you been in the hospital since your No last visit? Has dressing in place as prescribed Yes Has compression in place as prescribed Yes Has offloadiing in place as prescribed N/A Experienced any changes in pain level or No management Left Footwear Regular Shoe Right Footwear Regular Shoe Pain Scale: 0-10 Numeric Is Patient Pain Free? Yes WC - Nurse 1 - General Ulcer Measurement Start: 03/02/25 09:31 Freq: Status: Active Protocol: Activity Type Activity Date Activity User E-sign Co-sign Detail Recorded Client Recorded Date Recorded By Document 03/02/25 09:31 RB [id number] 03/02/25 09:35 RB Document 03/09/25 09:18 KW [id number] 03/09/25 09:27 KW Document 03/16/25 09:17 DL [id number] 03/16/25 09:25 DL Document 03/23/25 09:30 BMF [id number] 03/23/25 09:36 BMF 03/02/25 03/09/25 03/16/25 09:31 09:18 09:17 Wound Center Nurse 1 LEFT INF LE -Combined with other wound No -Current Size (cm) - Length 1 0.5 0.7 -Current Size (cm) - Width 1.1 0.8 1 -Current Size (cm) - Depth 0.1 0.1 0.1 -Total Square Cm 1.1 0.40 0.7 -Date of Last Picture (Recall this field) -Photo Taken Yes Yes -Epithelialization -Tunneling No -Undermining/Tunneling No -Circular Undermining No -Exudate Amt Medium Medium Medium -Exudate Type Serosanguineous Serosanguineous Serosanguineous -Wound Margin Distinct, Distinct, Distinct, Outline Outline Outline Attached Attached Attached -Granulation Amt Medium (34-66%) Large (67-100%) -Granulation Quality [place] Hyper- Red granulation,Red -Slough/Fibrin Yes -Necrosis Amt Medium (34-66%) None Present (0 %) -Necrotic Tissue Type Adherent Slough -Structure Exposed N/A N/A -Texture (Renuka-wound Skin Appearance) Assessed, Assessed Scarring Scarring -Moisture (Renuka-wound Skin Appearance) Assessed Assessed No Abnormality -Color (Renuka-wound Skin Appearance) Assessed Assessed, Hemosiderin Hemosiderin Staining Staining -Temperature (Renuka-wound Skin No Abnormality No Abnormality No Abnormality Appearance) (Pt Warm) (Pt Warm) (Pt Warm) -Tenderness on Palpation (Renuka-wound No No No Skin Appearance) -Ulcer Cleansing Wound Cleanser Soap and Water Soap and Water -Foul Odor after Cleansing No No No -Anesthetic Used 5% Lidocaine 5% Lidocaine 5% Lidocaine Gel Gel Gel LEFT SUP LE -Combined with other wound No -Current Size (cm) - Length 0.7 0.5 0.5 -Current Size (cm) - Width 1.1 0.8 0.7 -Current Size (cm) - Depth 0.1 0.1 0.1 -Total Square Cm 0.77 0.40 0.35 -Date of Last Picture (Recall this field) -Photo Taken Yes Yes -Epithelialization -Tunneling No -Undermining/Tunneling No -Circular Undermining No -Exudate Amt Medium Medium Small -Exudate Type Serosanguineous Serosanguineous Serosanguineous -Wound Margin Distinct, Distinct, Distinct, Outline Outline Outline Attached Attached Attached -Granulation Amt Medium (34-66%) Large (67-100%) Large (67-100%) -Granulation Quality [place] Red Red -Slough/Fibrin Yes -Necrosis Amt Medium (34-66%) None Present (0 %) -Necrotic Tissue Type Adherent Slough -Structure Exposed N/A N/A -Texture (Renuka-wound Skin Appearance) Assessed, Assessed Scarring Scarring -Moisture (Renuka-wound Skin Appearance) Assessed Assessed No Abnormality -Color (Renuka-wound Skin Appearance) Assessed Assessed, Hemosiderin Hemosiderin Staining Staining -Temperature (Renuka-wound Skin No Abnormality No Abnormality No Abnormality Appearance) (Pt Warm) (Pt Warm) (Pt Warm) -Tenderness on Palpation (Renuka-wound No No Skin Appearance) -Ulcer Cleansing Wound Cleanser Soap and Water Soap and Water -Foul Odor after Cleansing No No No -Anesthetic Used 5% Lidocaine 5% Lidocaine 5% Lidocaine Gel Gel Gel LEFT MEDIAL CLUSTER LE -Combined with other wound No -Current Size (cm) - Length 2.6 2.1 1.8 -Current Size (cm) - Width 2.6 2.3 2.5 -Current Size (cm) - Depth 0.5 0.5 0.6 -Total Square Cm 6.76 4.83 4.50 -Date of Last Picture (Recall this 03/09/25 field) -Photo Taken Yes Yes -Epithelialization -Tunneling No -Undermining/Tunneling No -Circular Undermining No -Exudate Amt Medium Medium Medium -Exudate Type Serosanguineous Serosanguineous Serosanguineous -Wound Margin Distinct, Distinct, Distinct, Outline Outline Outline Attached Attached Attached -Granulation Amt Medium (34-66%) Large (67-100%) Medium (34-66%) -Granulation Quality [place] Red Red -Slough/Fibrin Yes -Necrosis Amt Medium (34-66%) Small (1-33%) Medium (34-66%) -Necrotic Tissue Type Adherent Slough Adherent Slough Adherent Slough -Structure Exposed N/A N/A -Texture (Renuka-wound Skin Appearance) Assessed, Assessed Scarring Scarring -Moisture (Renuka-wound Skin Appearance) Assessed Assessed No Abnormality -Color (Renuka-wound Skin Appearance) Assessed Assessed, Hemosiderin Hemosiderin Staining Staining -Temperature (Renuka-wound Skin No Abnormality No Abnormality No Abnormality Appearance) (Pt Warm) (Pt Warm) (Pt Warm) -Tenderness on Palpation (Renuka-wound No No No Skin Appearance) -Ulcer Cleansing Wound Cleanser Soap and Water Soap and Water -Foul Odor after Cleansing No No No -Anesthetic Used 5% Lidocaine 5% Lidocaine 5% Lidocaine Gel Gel Gel Lower Limb Edema Present Yes Left Calf (cm) 46.5 44.5 43 Left Ankle (cm) 27.8 24.5 26 03/23/25 09:30 Wound Center Nurse 1 LEFT INF LE -Combined with other wound No -Current Size (cm) - Length 0.6 -Current Size (cm) - Width 0.7 -Current Size (cm) - Depth 0.1 -Total Square Cm 0.42 -Date of Last Picture (Recall this 03/23/25 field) -Photo Taken Yes -Epithelialization Medium 34-66% -Tunneling No -Undermining/Tunneling No -Circular Undermining No -Exudate Amt Medium -Exudate Type Serosanguineous -Wound Margin Distinct, Outline Attached -Granulation Amt Large (67-100%) -Granulation Quality Red -Slough/Fibrin Yes -Necrosis Amt Small (1-33%) -Necrotic Tissue Type Adherent Slough -Structure Exposed -Texture (Renuka-wound Skin Appearance) Assessed -Moisture (Renuka-wound Skin Appearance) Assessed -Color (Renuka-wound Skin Appearance) Assessed -Temperature (Renuka-wound Skin No Abnormality Appearance) (Pt Warm) -Tenderness on Palpation (Renuka-wound No Skin Appearance) -Ulcer Cleansing Soap and Water -Foul Odor after Cleansing No -Anesthetic Used 4% Lidocaine Solution LEFT SUP LE -Combined with other wound No -Current Size (cm) - Length 0.1 -Current Size (cm) - Width 0.1 -Current Size (cm) - Depth 0.1 -Total Square Cm 0.01 -Date of Last Picture (Recall this 03/23/25 field) -Photo Taken Yes -Epithelialization Large 67-100% -Tunneling -Undermining/Tunneling -Circular Undermining -Exudate Amt -Exudate Type -Wound Margin -Granulation Amt -Granulation Quality -Slough/Fibrin -Necrosis Amt -Necrotic Tissue Type -Structure Exposed -Texture (Renuka-wound Skin Appearance) Assessed, Scarring -Moisture (Renuka-wound Skin Appearance) Assessed,Dry/ Scaly -Color (Renuka-wound Skin Appearance) Assessed -Temperature (Renuka-wound Skin No Abnormality Appearance) (Pt Warm) -Tenderness on Palpation (Renuka-wound No Skin Appearance) -Ulcer Cleansing Soap and Water -Foul Odor after Cleansing No -Anesthetic Used 4% Lidocaine Solution LEFT MEDIAL CLUSTER LE -Combined with other wound No -Current Size (cm) - Length 1.8 -Current Size (cm) - Width 2 -Current Size (cm) - Depth 0.3 -Total Square Cm 3.6 -Date of Last Picture (Recall this 03/23/25 field) -Photo Taken Yes -Epithelialization Medium 34-66% -Tunneling No -Undermining/Tunneling No -Circular Undermining No -Exudate Amt Medium -Exudate Type Serosanguineous -Wound Margin Distinct, Outline Attached -Granulation Amt Large (67-100%) -Granulation Quality Red -Slough/Fibrin Yes -Necrosis Amt Small (1-33%) -Necrotic Tissue Type Adherent Slough -Structure Exposed -Texture (Renuka-wound Skin Appearance) Assessed, Scarring -Moisture (Renuka-wound Skin Appearance) Assessed,Dry/ Scaly -Color (Renuka-wound Skin Appearance) Assessed -Temperature (Renuka-wound Skin No Abnormality Appearance) (Pt Warm) -Tenderness on Palpation (Renuka-wound No Skin Appearance) -Ulcer Cleansing Soap and Water -Foul Odor after Cleansing No -Anesthetic Used 4% Lidocaine Solution Lower Limb Edema Present Left Calf (cm) Left Ankle (cm) WC - Nurse 2 - General Ulcer CM Notes Start: 03/02/25 09:31 Freq: Status: Active Protocol: Activity Type Activity Date Activity User E-sign Co-sign Detail Recorded Client Recorded Date Recorded By Document 07/02/25 09:40 [facility] [id number] 03/02/25 09:50 [facility] Document 03/09/25 09:43 [facility] [id number] 03/09/25 10:04 [facility] Document 03/16/25 09:31 [facility] [id number] 03/16/25 09:44 [facility] Document 03/23/25 10:15 [facility] [id number] 03/23/25 10:23 [facility] 03/02/25 03/09/25 03/16/25 09:40 09:43 09:31 Wound Center Nurse 2 LEFT INF LE -Time : 09:44 09:32 -Correct Patient Yes Yes Yes -Correct Side, Site, Position Yes Yes Yes -Correct Procedure Yes Yes Yes -Procedure Performed Yes Yes Yes -Type of Procedure Debridement Debridement Debridement -Clinical Debridement Subcutaneous Subcutaneous Subcutaneous -Tissue Removed Subcutaneous Subcutaneous Subcutaneous -Post Debridement (cm) - Length 1 0.8 0.8 -Post Debridement (cm) - Width 1 1 1 -Post Debridement (cm) - Depth 0.1 0.1 0.1 -Total Square (Post) (cm) 1 0.8 0.8 -Area of Debridement (cm) - Length 1 0.8 0.8 -Area of Debridement (cm) - Width 1 1 1 -Total Square (Area) (cm) 1 0.8 0.8 -Tunneling No No No -Undermining/Tunneling No No No -Circular Undermining No No No -Wound/Ulcer Outcome Not Healed Not Healed Not Healed -Ulcer Cleansing Rinsed/ Rinsed/ Rinsed/ Irrigated with Irrigated with Irrigated with Saline Saline Saline -Foul Odor after Cleansing No No No -Bioengineered Tissue No No No -Bleeding Controlled with Pressure Pressure Pressure -Treatment Response Procedure Procedure Procedure Tolerated Well Tolerated Well Tolerated Well -Debridement - Subq, 1st 20sq cm Yes Yes No LEFT SUP LE -Time 09:41 09:44 09:32 -Correct Patient Yes Yes Yes -Correct Side, Site, Position Yes Yes Yes -Correct Procedure Yes Yes Yes -Procedure Performed Yes Yes Yes -Type of Procedure Debridement Debridement Debridement -Clinical Debridement Subcutaneous Subcutaneous Subcutaneous -Tissue Removed Subcutaneous Subcutaneous Subcutaneous -Post Debridement (cm) - Length 0.7 0.7 0.8 -Post Debridement (cm) - Width 1.2 0.9 0.9 -Post Debridement (cm) - Depth 0.1 0.1 0.1 -Total Square (Post) (cm) 0.84 0.63 0.72 -Area of Debridement (cm) - Length 0.7 0.7 0.8 -Area of Debridement (cm) - Width 1.2 0.9 0.9 -Total Square (Area) (cm) 0.84 0.63 0.72 -Tunneling No No No -Undermining/Tunneling No No No -Circular Undermining No No No -Wound/Ulcer Outcome Not Healed Not Healed Not Healed -Ulcer Cleansing Rinsed/ Rinsed/ Rinsed/ Irrigated with Irrigated with Irrigated with Saline Saline Saline -Foul Odor after Cleansing No No No -Bioengineered Tissue No No No -Bleeding Controlled with Pressure Pressure Pressure -Treatment Response Procedure Procedure Procedure Tolerated Well Tolerated Well Tolerated Well -Debridement - Subq, 1st 20sq cm No No Yes LEFT MEDIAL CLUSTER LE -Time 09:41 09:44 09:33 -Correct Patient Yes Yes Yes -Correct Side, Site, Position Yes Yes Yes -Correct Procedure Yes Yes Yes -Procedure Performed Yes Yes Yes -Type of Procedure Debridement Debridement Debridement -Clinical Debridement Muscle / Fascia Muscle / Fascia Muscle / Fascia -Tissue Removed Muscle,Fascia Muscle,Fascia Muscle,Fascia -Post Debridement (cm) - Length 2.7 2.3 2 -Post Debridement (cm) - Width 2.5 2.5 2 -Post Debridement (cm) - Depth 0.7 0.7 0.7 -Total Square (Post) (cm) 6.75 5.75 4 -Area of Debridement (cm) - Length 2.7 2.3 2 -Area of Debridement (cm) - Width 2.5 2.5 2 -Total Square (Area) (cm) 6.75 5.75 4 -Tunneling No No No -Undermining/Tunneling No No No -Circular Undermining No No No -Wound/Ulcer Outcome Not Healed Not Healed Not Healed -Ulcer Cleansing Rinsed/ Rinsed/ Rinsed/ Irrigated with Irrigated with Irrigated with Saline Saline Saline -Foul Odor after Cleansing No No No -Bioengineered Tissue No Yes Yes -Type of Bioengineered Tissue Epifix Mesh Epifix Mesh Epifix Mesh -Expiration Date 09/01/29 09/01/29 -Product Lot Number [id number] -Percent Used 100 100 100 -Lot number of Saline Used [id number] -Bleeding Controlled with Pressure Pressure Pressure -Treatment Response Procedure Procedure Procedure Tolerated Well Tolerated Well Tolerated Well -Debridement - Subq, 1st 20sq cm -Debridement - Muscle / Fascia, 1st No No No 20sq cm -Apply Skin Sub - 1st 25 sq cm - Legs 1 1 1 -Apply Skin Sub - each addt'l 25 sq cm - Legs -Epifix Application 1-4 (per sq cm) -Epifix Mesh Application 1-4 (per sq 11 11 11 cm) Pain Scale: 0-10 Numeric Is Patient Pain Free? Yes Yes Yes 03/23/25 10:15 Wound Center Nurse 2 LEFT INF LE -Time 10:15 -Correct Patient -Correct Side, Site, Position -Correct Procedure -Procedure Performed No -Type of Procedure -Clinical Debridement -Tissue Removed -Post Debridement (cm) - Length 0 -Post Debridement (cm) - Width 0 -Post Debridement (cm) - Depth 0 -Total Square (Post) (cm) 0 -Area of Debridement (cm) - Length 0 -Area of Debridement (cm) - Width 0 -Total Square (Area) (cm) 0 -Tunneling No -Undermining/Tunneling No -Circular Undermining No -Wound/Ulcer Outcome Healed- Epithelialized -Ulcer Cleansing -Foul Odor after Cleansing -Bioengineered Tissue -Bleeding Controlled with -Treatment Response -Debridement - Subq, 1st 20sq cm LEFT SUP LE -Time 10:16 -Correct Patient -Correct Side, Site, Position -Correct Procedure -Procedure Performed No -Type of Procedure -Clinical Debridement -Tissue Removed -Post Debridement (cm) - Length -Post Debridement (cm) - Width -Post Debridement (cm) - Depth -Total Square (Post) (cm) -Area of Debridement (cm) - Length -Area of Debridement (cm) - Width -Total Square (Area) (cm) -Tunneling -Undermining/Tunneling -Circular Undermining -Wound/Ulcer Outcome Healed- Epithelialized -Ulcer Cleansing -Foul Odor after Cleansing -Bioengineered Tissue -Bleeding Controlled with NA -Treatment Response -Debridement - Subq, 1st 20sq cm LEFT [facility] LE -Time 10:16 -Correct Patient Yes -Correct Side, Site, Position Yes -Correct Procedure Yes -Procedure Performed Yes -Type of Procedure Debridement -Clinical Debridement Subcutaneous -Tissue Removed Subcutaneous -Post Debridement (cm) - Length 1.7 -Post Debridement (cm) - Width 1.8 -Post Debridement (cm) - Depth 0.5 -Total Square (Post) (cm) 3.06 -Area of Debridement (cm) - Length 1.7 -Area of Debridement (cm) - Width 1.8 -Total Square (Area) (cm) 3.06 -Tunneling No -Undermining/Tunneling No -Circular Undermining No -Wound/Ulcer Outcome Not Healed -Ulcer Cleansing Rinsed/ Irrigated with Saline -Foul Odor after Cleansing No -Bioengineered Tissue Yes -Type of Bioengineered Tissue -Expiration Date 09/01/29 -Product Lot Number [id number] -Percent Used 100 -Lot number of Saline Used [id number] -Bleeding Controlled with Pressure -Treatment Response Procedure Tolerated Well -Debridement - Subq, 1st 20sq cm No -Debridement - Muscle / Fascia, 1st 20sq cm -Apply Skin Sub - 1st 25 sq cm - Legs -Apply Skin Sub - each addt'l 25 sq cm 1 - Legs -Epifix Application 1-4 (per sq cm) 4 -Epifix Mesh Application 1-4 (per sq cm) Pain Scale: 0-10 Numeric Is Patient Pain Free? Yes WC - Nurse 3 - General Ulcer D/C NN Start: 03/02/25 09:31 Freq: Status: Active Protocol: Activity Type Activity Date Activity User E-sign Co-sign Detail Recorded Client Recorded Date Recorded By Document 03/02/25 10:06 DL [id number] 03/02/25 10:08 DL Document 03/09/25 10:16 DL [id number] 03/09/25 10:19 DL Document 03/16/25 09:50 ML [id number] 03/16/25 09:53 ML Document 03/23/25 10:34 DL [id number] 03/23/25 10:35 DL 03/02/25 03/09/25 03/16/25 10:06 10:16 09:50 Wound Care Center Nurse 3 LEFT INF LE -Ulcer Cleansing Rinsed/ Irrigated with Saline -Foul Odor after Cleansing No No -Primary Dressing Applied Aquacel Extra Aquacel Extra -Other Dressing Epi EPIFIX -Primary Dressing Covered/Secured with Dry Gauze & Dry Gauze & Dry Gauze & Roll Gauze, Roll Gauze, Roll Gauze, Secured with Secured with Secured with Tape Tape Tape -Other Covering abd -Aquacel Extra 1 1 1 LEFT SUP LE -Ulcer Cleansing Not Cleansed Rinsed/ Irrigated with Saline -Foul Odor after Cleansing No No -Primary Dressing Applied Aquacel Extra -Other Dressing Epi/aquacel ex EPIFIX -Primary Dressing Covered/Secured with Dry Gauze & Dry Gauze & Dry Gauze, Roll Gauze, Roll Gauze, Secured with Secured with Secured with Tape Tape Tape -Other Covering ABD -Aquacel Extra 0 LEFT MEDIAL CLUSTER LE -Ulcer Cleansing Rinsed/ Irrigated with Saline -Foul Odor after Cleansing No No -Primary Dressing Applied Aquacel Extra -Other Dressing Epi/aquacelEX EPIFIX -Primary Dressing Covered/Secured with Dry Gauze & Dry Gauze & Dry Gauze & Roll Gauze, Roll Gauze, Roll Gauze, Secured with Secured with Secured with Tape Tape Tape -Other Covering ABD -Aquacel Extra 1 LLE -Tubular Bandage Double Layer Double Layer Single Layer -Size of Tubigrip Used Size E Size F Size F -Size E ($) 2 -Size F ($) 2 1 Treatment Response Pain Scale: 0-10 Numeric Is Patient Pain Free? Yes Yes Yes WC - Visit Discharge Discharge Condition Stable Stable Ambulatory Status Ambulatory Ambulatory Transportation Private Lighting by LED 03/23/25 10:34 Wound Care Center Nurse 3 LEFT INF LE -Ulcer Cleansing -Foul Odor after Cleansing -Primary Dressing Applied -Other Dressing -Primary Dressing Covered/Secured with -Other Covering -Aquacel Extra LEFT SUP LE -Ulcer Cleansing -Foul Odor after Cleansing -Primary Dressing Applied -Other Dressing -Primary Dressing Covered/Secured with -Other Covering -Aquacel Extra LEFT MEDIAL CLUSTER LE -Ulcer Cleansing -Foul Odor after Cleansing No -Primary Dressing Applied Aquacel Extra -Other Dressing Epifix -Primary Dressing Covered/Secured with Dry Gauze & Roll Gauze, Secured with Tape -Other Covering ABD -Aquacel Extra 1 LLE -Tubular Bandage Double Layer -Size of Tubigrip Used Size F -Size E ($) -Size F ($) 2 Treatment Response Procedure Tolerated Well Pain Scale: 0-10 Numeric Is Patient Pain Free? Yes WC - Visit Discharge Discharge Condition Stable Ambulatory Status Ambulatory Transportation Private Auto Additional Wound Wound debrided: Medial eft lower leg wound trauma Type of Debridement: Excisional debridement Anesthesia Used: 5% Lidocaine Gel Depth: Down to and including healthy tissue and in the subcutaneous layer Percentage of wound debrided: 100 Instrument Used: 5mm curette Tissue Removed: Fibrin Severity: Fat Layer Exposed Amount of bleeding with debridement: Mild Bleeding Controlled with: Compression and gauze Patient tolerated procedure: Patient tolerated procedure well Assessment/Plan Assessment/Plan (1) Traumatic skin ulcer with fat layer exposed: CODE(S): L98.492 - Non-pressure chronic ulcer of skin of other sites with fat layer exposed PLAN: Cover the inferior and superior wounds with the dry dressing for the next week to protect new skin otherwise they are discharged and resolved Tubigrip double layer to left leg every day #7 EpiFix was applied to the medial wound base and covered with wound veil and Steri-Strips and a foam dressing covered. Patient was instructed to get a cast Cover to take showers. Patient was instructed not to touch any of the Steri-Strips or lower she is allowed to change the outside dressing if he gets soiled or wet. Patient instructed to follow-up in 1 week (2) Type 2 diabetes mellitus with hyperglycemia: CODE(S): E11.65 - Type 2 diabetes mellitus with hyperglycemia QUALIFIERS: Diabetes mellitus halfway insulin use: without intermission coordinator use Qualified Code(s): E11.65 - Type 2 diabetes mellitus with hyperglycemia (3) Lower extremity edema: CODE(S): R60.0 - Localized edema (4) Peripheral vascular disease: CODE(S): I73.9 - Peripheral vascular disease, unspecified (5) Nonhealing nonsurgical wound with fat layer exposed: CODE(S): T14.8XXA - Other injury of unspecified body region, initial encounter (6) 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
--- NOTE | 2025-03-24 08:19 | WC ---
PHOTO-LLE SUP/LLE INF/LLE MEDIAL 03/23/25
[2025-03-30 09:26] VITALS: BP 126/63; PULSE 80; RESP 14; TEMP 36.1
--- NOTE | 2025-03-30 10:13 | PCM.WC.PN ---
History of Present Illness Date of Service: 03/30/25 Chief Complaint: Left leg wound from trauma History of Wound: 69-year-old white female that fell down her carpeted steps December 25 had developed blood blisters over the left leg medially distal half both legs are swollen but the left leg now is more swollen than the right leg she has been trying to take care of them herself with just antibiotic ointments but then they opened and she is got dark and eschar on them and followed up with her family doctor that referred her here and started her on doxycycline told her to stay on it until seen. She is also diabetic and on insulin and Ozempic and other meds that would not interfere with treatment or healing. Progress of Wound: The 2 superior inferior wounds are healed and just need to have protection for the next week over the new skin. No sign of infection no smell no odor good flesh color around the parameters of the medial wound everything looks good we will continue using the EpiFix. Wound is more shallow and measurements are smaller. Subjective Subjective Patient leaves in 2 weeks to go to [place] as she is very pleased with outcomes Objective Data Objective Data Again measurements are smaller and she seems to be filling and on the whole better are using a smaller EpiFix which she is using at the #8 Vital Signs: Vital Signs Temp Pulse Resp BP O2 Del Method 97.0 F L 80 14 126/63 H Room Air 03/30/25 09:26 03/30/25 09:26 03/30/25 09:26 03/30/25 09:26 03/23/25 09:30 Oxygen Delivery Method Room Air Lab / Micro Data Attestation: I reviewed the patient's lab results. Physical Exam Const oriented x3 General Appearance: cooperative Exam Limitations: no limitations HEENT normocephalic Head and Scalp: normal to inspection Face and Sinus: normal facial exam Eyes General Eye: normal appearance of both eyes Neck full ROM General: normal visual inspection Resp normal respiratory effort Effort and Inspection: able to speak in complete sentences Auscultation: clear to auscultation bilaterally Cardio regular rate and regular rhythm Palpation: normal PMI Rate: regular rate Rhythm: regular rhythm GI Palpation: soft and no hepatosplenomegaly Back/Spine Cervical Spine: cervical ROM normal Thoracic Spine / Upper Back: normal to inspection Lumbar Spine / Lower Back: normal to inspection Extremity General Extremity: normal exam except as noted, edema and other findings Other Details: Open wounds x 3 left lower leg Skin no rashes or lesions noted Skin Narrative: Open wounds medial superior and inferior left lower leg with eschar and darkened erythema around the wound base. Legs are extremely edematous left greater than right. Neuro oriented x3 Psych Appearance: grossly normal Speech: normal speech Thought Content: normal thought content Judgement: judgement good Debridement Note Debridement Note Wound debrided: Medial left lower leg wound traumatic Type of Debridement: Excisional debridement Anesthesia Used: 5% Lidocaine Gel Depth: in the subcutaneous layer Percentage of wound debrided: 100 Instrument Used: 3mm curette Tissue Removed: Fibrin Severity: Fat Layer Exposed Amount of bleeding with debridement: None Bleeding Controlled with: Compression and gauze Patient tolerated procedure: Patient tolerated procedure well Post-Debridement Measurements and Additional Note: Post-Debridement Measurements/Treatment - Nurse 1 - General Ulcer Assessment Start: 03/02/25 09:31 Freq: Status: Active Protocol: KITTY Activity Type Activity Date Activity User E-sign Co-sign Detail Recorded Client Recorded Date Recorded By Document 03/02/25 09:31 RB [id number] 03/02/25 09:35 RB Document 03/09/25 09:18 KW [id number] 03/09/25 09:27 KW Document 03/16/25 09:17 DL [id number] 03/16/25 09:25 DL Document 03/23/25 09:30 BMF [id number] 03/23/25 09:36 BMF Document 03/30/25 09:26 ML [id number] 03/30/25 09:28 ML 03/02/25 03/09/25 03/16/25 09:31 09:18 09:17 - Today's Visit Information Type of service Follow-up Visit Follow-up Visit Follow-up Visit (Physician/BUTTON STATION WORKER (Physician/BUTTON STATION WORKER (Physician/BUTTON STATION WORKER ) ) ) Arrival Mode Ambulatory Ambulatory Ambulatory Transfer Assistance None None Patient Identification Verified (Name & Yes Yes Yes ) Patient Requires Transmission-Based No No Precautions Vital Signs Temperature (97.8 F-99.1 F) 96.8 F L 96.7 F L 97.7 F L Temperature Source Temporal Temporal Temporal Pulse Rate (60-100) 84 91 78 Pulse Location Monitor Monitor Monitor Respiratory Rate (12-18) 18 16 16 Respiratory rate source Observation Observation Observation Oxygen Delivery Method Room Air Blood Pressure (90/60-120/80) 129/71 H 108/58 L 115/63 Blood Pressure Mean (mm Hg) 90 74 80 Source Monitor Monitor Monitor Position Semi-Fowlers Semi-Fowlers Blood Pressure Location Left Arm Left Arm History Since Last Visit- (Skip if this is Patient's initial visit) Have you changed medications since your No No No last visit? Any new allergies or adverse reactions No No No Had a fall/change in ADL's that may No No No increase risk of falls Signs or symptoms of abuse and/or No No No neglect since last visit Have you been in the hospital since your No No No last visit? Has dressing in place as prescribed Yes Yes Yes Has compression in place as prescribed Yes Yes Yes Has offloadiing in place as prescribed N/A N/A N/A Experienced any changes in pain level or No No No management Left Footwear Regular Shoe Regular Shoe Right Footwear Regular Shoe Regular Shoe Pain Scale: 0-10 Numeric Is Patient Pain Free? Yes Yes Yes 03/23/25 03/30/25 09:30 09:26 - Today's Visit Information Type of service Follow-up Visit Follow-up Visit (Physician/BUTTON STATION WORKER (Physician/BUTTON STATION WORKER ) ) Arrival Mode Ambulatory Ambulatory Transfer Assistance None Patient Identification Verified (Name & Yes Yes ) Patient Requires Transmission-Based No No Precautions Vital Signs Temperature (97.8 F-99.1 F) 96.4 F L 97.0 F L Temperature Source Temporal Temporal Pulse Rate (60-100) 96 80 Pulse Location Monitor Monitor Respiratory Rate (12-18) 18 14 Respiratory rate source Observation Observation Oxygen Delivery Method Room Air Blood Pressure (90/60-120/80) 178/53 H 126/63 H Blood Pressure Mean (mm Hg) 94 84 Source Monitor Monitor Position Sitting Sitting Blood Pressure Location Left Arm Right Arm History Since Last Visit- (Skip if this is Patient's initial visit) Have you changed medications since your No No last visit? Any new allergies or adverse reactions No No Had a fall/change in ADL's that may No No increase risk of falls Signs or symptoms of abuse and/or No No neglect since last visit Have you been in the hospital since your No No last visit? Has dressing in place as prescribed Yes Yes Has compression in place as prescribed Yes Yes Has offloadiing in place as prescribed N/A N/A Experienced any changes in pain level or No No management Left Footwear Regular Shoe Right Footwear Regular Shoe Pain Scale: 0-10 Numeric Is Patient Pain Free? Yes Yes WC - Nurse 1 - General Ulcer Measurement Start: 03/02/25 09:31 Freq: Status: Active Protocol: Activity Type Activity Date Activity User E-sign Co-sign Detail Recorded Client Recorded Date Recorded By Document 03/02/25 09:31 RB [id number] 03/02/25 09:35 RB Document 03/09/25 09:18 KW [id number] 03/09/25 09:27 KW Document 03/16/25 09:17 DL [id number] 03/16/25 09:25 DL Document 03/23/25 09:30 BMF [id number] 03/23/25 09:36 BMF Document 03/30/25 09:26 ML [id number] 03/30/25 09:28 ML 03/02/25 03/09/25 03/16/25 09:31 09:18 09:17 Wound Center Nurse 1 LEFT INF LE -Combined with other wound No -Current Size (cm) - Length 1 0.5 0.7 -Current Size (cm) - Width 1.1 0.8 1 -Current Size (cm) - Depth 0.1 0.1 0.1 -Total Square Cm 1.1 0.40 0.7 -Date of Last Picture (Recall this field) -Photo Taken Yes Yes -Epithelialization -Tunneling No -Undermining/Tunneling No -Circular Undermining No -Exudate Amt Medium Medium Medium -Exudate Type Serosanguineous Serosanguineous Serosanguineous -Wound Margin Distinct, Distinct, Distinct, Outline Outline Outline Attached Attached Attached -Granulation Amt Medium (34-66%) Large (67-100%) -Granulation Quality [place] Hyper- Red granulation,Red -Slough/Fibrin Yes -Necrosis Amt Medium (34-66%) None Present (0 %) -Necrotic Tissue Type Adherent Slough -Structure Exposed N/A N/A -Texture (Renuka-wound Skin Appearance) Assessed, Assessed Scarring Scarring -Moisture (Renuka-wound Skin Appearance) Assessed Assessed No Abnormality -Color (Renuka-wound Skin Appearance) Assessed Assessed, Hemosiderin Hemosiderin Staining Staining -Temperature (Renuka-wound Skin No Abnormality No Abnormality No Abnormality Appearance) (Pt Warm) (Pt Warm) (Pt Warm) -Tenderness on Palpation (Renuka-wound No No No Skin Appearance) -Ulcer Cleansing Wound Cleanser Soap and Water Soap and Water -Foul Odor after Cleansing No No No -Anesthetic Used 5% Lidocaine 5% Lidocaine 5% Lidocaine Gel Gel Gel LEFT SUP LE -Combined with other wound No -Current Size (cm) - Length 0.7 0.5 0.5 -Current Size (cm) - Width 1.1 0.8 0.7 -Current Size (cm) - Depth 0.1 0.1 0.1 -Total Square Cm 0.77 0.40 0.35 -Date of Last Picture (Recall this field) -Photo Taken Yes Yes -Epithelialization -Tunneling No -Undermining/Tunneling No -Circular Undermining No -Exudate Amt Medium Medium Small -Exudate Type Serosanguineous Serosanguineous Serosanguineous -Wound Margin Distinct, Distinct, Distinct, Outline Outline Outline Attached Attached Attached -Granulation Amt Medium (34-66%) Large (67-100%) Large (67-100%) -Granulation Quality [place] Red Red -Slough/Fibrin Yes -Necrosis Amt Medium (34-66%) None Present (0 %) -Necrotic Tissue Type Adherent Slough -Structure Exposed N/A N/A -Texture (Renuka-wound Skin Appearance) Assessed, Assessed Scarring Scarring -Moisture (Renuka-wound Skin Appearance) Assessed Assessed No Abnormality -Color (Renuka-wound Skin Appearance) Assessed Assessed, Hemosiderin Hemosiderin Staining Staining -Temperature (Renuka-wound Skin No Abnormality No Abnormality No Abnormality Appearance) (Pt Warm) (Pt Warm) (Pt Warm) -Tenderness on Palpation (Renuka-wound No No Skin Appearance) -Ulcer Cleansing Wound Cleanser Soap and Water Soap and Water -Foul Odor after Cleansing No No No -Anesthetic Used 5% Lidocaine 5% Lidocaine 5% Lidocaine Gel Gel Gel LEFT MEDIAL CLUSTER LE -Combined with other wound No -Current Size (cm) - Length 2.6 2.1 1.8 -Current Size (cm) - Width 2.6 2.3 2.5 -Current Size (cm) - Depth 0.5 0.5 0.6 -Total Square Cm 6.76 4.83 4.50 -Date of Last Picture (Recall this 03/09/25 field) -Photo Taken Yes Yes -Epithelialization -Tunneling No -Undermining/Tunneling No -Circular Undermining No -Exudate Amt Medium Medium Medium -Exudate Type Serosanguineous Serosanguineous Serosanguineous -Wound Margin Distinct, Distinct, Distinct, Outline Outline Outline Attached Attached Attached -Granulation Amt Medium (34-66%) Large (67-100%) Medium (34-66%) -Granulation Quality [place] Red Red -Slough/Fibrin Yes -Necrosis Amt Medium (34-66%) Small (1-33%) Medium (34-66%) -Necrotic Tissue Type Adherent Slough Adherent Slough Adherent Slough -Structure Exposed N/A N/A -Texture (Renuka-wound Skin Appearance) Assessed, Assessed Scarring Scarring -Moisture (Renuka-wound Skin Appearance) Assessed Assessed No Abnormality -Color (Renuka-wound Skin Appearance) Assessed Assessed, Hemosiderin Hemosiderin Staining Staining -Temperature (Renuka-wound Skin No Abnormality No Abnormality No Abnormality Appearance) (Pt Warm) (Pt Warm) (Pt Warm) -Tenderness on Palpation (Renuka-wound No No No Skin Appearance) -Ulcer Cleansing Wound Cleanser Soap and Water Soap and Water -Foul Odor after Cleansing No No No -Anesthetic Used 5% Lidocaine 5% Lidocaine 5% Lidocaine Gel Gel Gel Lower Limb Edema Present Yes Left Calf (cm) 46.5 44.5 43 Left Ankle (cm) 27.8 24.5 26 03/23/25 03/30/25 09:30 09:26 Wound Center Nurse 1 LEFT INF LE -Combined with other wound No -Current Size (cm) - Length 0.6 -Current Size (cm) - Width 0.7 -Current Size (cm) - Depth 0.1 -Total Square Cm 0.42 -Date of Last Picture (Recall this 03/23/25 field) -Photo Taken Yes -Epithelialization Medium 34-66% -Tunneling No -Undermining/Tunneling No -Circular Undermining No -Exudate Amt Medium -Exudate Type Serosanguineous -Wound Margin Distinct, Outline Attached -Granulation Amt Large (67-100%) -Granulation Quality Red -Slough/Fibrin Yes -Necrosis Amt Small (1-33%) -Necrotic Tissue Type Adherent Slough -Structure Exposed -Texture (Renuka-wound Skin Appearance) Assessed -Moisture (Renuka-wound Skin Appearance) Assessed -Color (Renuka-wound Skin Appearance) Assessed -Temperature (Renuka-wound Skin No Abnormality Appearance) (Pt Warm) -Tenderness on Palpation (Renuka-wound No Skin Appearance) -Ulcer Cleansing Soap and Water -Foul Odor after Cleansing No -Anesthetic Used 4% Lidocaine Solution LEFT SUP LE -Combined with other wound No -Current Size (cm) - Length 0.1 -Current Size (cm) - Width 0.1 -Current Size (cm) - Depth 0.1 -Total Square Cm 0.01 -Date of Last Picture (Recall this 03/23/25 field) -Photo Taken Yes -Epithelialization Large 67-100% -Tunneling -Undermining/Tunneling -Circular Undermining -Exudate Amt -Exudate Type -Wound Margin -Granulation Amt -Granulation Quality -Slough/Fibrin -Necrosis Amt -Necrotic Tissue Type -Structure Exposed -Texture (Renuka-wound Skin Appearance) Assessed, Scarring -Moisture (Renuka-wound Skin Appearance) Assessed,Dry/ Scaly -Color (Renuka-wound Skin Appearance) Assessed -Temperature (Renuka-wound Skin No Abnormality Appearance) (Pt Warm) -Tenderness on Palpation (Renuka-wound No Skin Appearance) -Ulcer Cleansing Soap and Water -Foul Odor after Cleansing No -Anesthetic Used 4% Lidocaine Solution LEFT MEDIAL CLUSTER LE -Combined with other wound No -Current Size (cm) - Length 1.8 1 -Current Size (cm) - Width 2 1 -Current Size (cm) - Depth 0.3 0.3 -Total Square Cm 3.6 1 -Date of Last Picture (Recall this 03/23/25 field) -Photo Taken Yes -Epithelialization Medium 34-66% -Tunneling No -Undermining/Tunneling No -Circular Undermining No -Exudate Amt Medium Medium -Exudate Type Serosanguineous Serosanguineous -Wound Margin Distinct, Outline Attached -Granulation Amt Large (67-100%) Medium (34-66%) -Granulation Quality Red -Slough/Fibrin Yes -Necrosis Amt Small (1-33%) Medium (34-66%) -Necrotic Tissue Type Adherent Slough Adherent Slough -Structure Exposed -Texture (Renuka-wound Skin Appearance) Assessed, Assessed Scarring -Moisture (Renuka-wound Skin Appearance) Assessed,Dry/ Assessed Scaly -Color (Renuka-wound Skin Appearance) Assessed Assessed -Temperature (Renuka-wound Skin No Abnormality No Abnormality Appearance) (Pt Warm) (Pt Warm) -Tenderness on Palpation (Renuka-wound No No Skin Appearance) -Ulcer Cleansing Soap and Water Soap and Water -Foul Odor after Cleansing No No -Anesthetic Used 4% Lidocaine 5% Lidocaine Solution Gel Lower Limb Edema Present Left Calf (cm) Left Ankle (cm) WC - Nurse 2 - General Ulcer CM Notes Start: 03/02/25 09:31 Freq: Status: Active Protocol: Activity Type Activity Date Activity User E-sign Co-sign Detail Recorded Client Recorded Date Recorded By Document 03/02/25 09:40 BM [id number] 03/02/25 09:50 BM Document 03/09/25 09:43 BMF [id number] 03/09/25 10:04 BMF Document 03/16/25 09:31 BMF [id number] 03/16/25 09:44 BMF Document 03/23/25 10:15 BMF [id number] 03/23/25 10:23 BMF Document 03/30/25 09:32 BMF [id number] 03/30/25 09:41 BMF 03/02/25 03/09/25 03/16/25 09:40 09:43 09:31 Wound Center Nurse 2 LEFT INF LE -Time 09:41 09:44 09:32 -Correct Patient Yes Yes Yes -Correct Side, Site, Position Yes Yes Yes -Correct Procedure Yes Yes Yes -Procedure Performed Yes Yes Yes -Type of Procedure Debridement Debridement Debridement -Clinical Debridement Subcutaneous Subcutaneous Subcutaneous -Tissue Removed Subcutaneous Subcutaneous Subcutaneous -Post Debridement (cm) - Length 1 0.8 0.8 -Post Debridement (cm) - Width 1 1 1 -Post Debridement (cm) - Depth 0.1 0.1 0.1 -Total Square (Post) (cm) 1 0.8 0.8 -Area of Debridement (cm) - Length 1 0.8 0.8 -Area of Debridement (cm) - Width 1 1 1 -Total Square (Area) (cm) 1 0.8 0.8 -Tunneling No No No -Undermining/Tunneling No No No -Circular Undermining No No No -Wound/Ulcer Outcome Not Healed Not Healed Not Healed -Ulcer Cleansing Rinsed/ Rinsed/ Rinsed/ Irrigated with Irrigated with Irrigated with Saline Saline Saline -Foul Odor after Cleansing No No No -Bioengineered Tissue No No No -Bleeding Controlled with Pressure Pressure Pressure -Treatment Response Procedure Procedure Procedure Tolerated Well Tolerated Well Tolerated Well -Debridement - Subq, 1st 20sq cm Yes Yes No LEFT SUP LE -Time 09:44 09:32 -Correct Patient Yes Yes Yes -Correct Side, Site, Position Yes Yes Yes -Correct Procedure Yes Yes Yes -Procedure Performed Yes Yes Yes -Type of Procedure Debridement Debridement Debridement -Clinical Debridement Subcutaneous Subcutaneous Subcutaneous -Tissue Removed Subcutaneous Subcutaneous Subcutaneous -Post Debridement (cm) - Length 0.7 0.7 0.8 -Post Debridement (cm) - Width 1.2 0.9 0.9 -Post Debridement (cm) - Depth 0.1 0.1 0.1 -Total Square (Post) (cm) 0.84 0.63 0.72 -Area of Debridement (cm) - Length 0.7 0.7 0.8 -Area of Debridement (cm) - Width 1.2 0.9 0.9 -Total Square (Area) (cm) 0.84 0.63 0.72 -Tunneling No No No -Undermining/Tunneling No No No -Circular Undermining No No No -Wound/Ulcer Outcome Not Healed Not Healed Not Healed -Ulcer Cleansing Rinsed/ Rinsed/ Rinsed/ Irrigated with Irrigated with Irrigated with Saline Saline Saline -Foul Odor after Cleansing No No No -Bioengineered Tissue No No No -Bleeding Controlled with Pressure Pressure Pressure -Treatment Response Procedure Procedure Procedure Tolerated Well Tolerated Well Tolerated Well -Debridement - Subq, 1st 20sq cm No No Yes LEFT MEDIAL CLUSTER LE -Time :44 09:33 -Correct Patient Yes Yes Yes -Correct Side, Site, Position Yes Yes Yes -Correct Procedure Yes Yes Yes -Procedure Performed Yes Yes Yes -Type of Procedure Debridement Debridement Debridement -Clinical Debridement Muscle / Fascia Muscle / Fascia Muscle / Fascia -Tissue Removed Muscle,Fascia Muscle,Fascia Muscle,Fascia -Post Debridement (cm) - Length 2.7 2.3 2 -Post Debridement (cm) - Width 2.5 2.5 2 -Post Debridement (cm) - Depth 0.7 0.7 0.7 -Total Square (Post) (cm) 6.75 5.75 4 -Area of Debridement (cm) - Length 2.7 2.3 2 -Area of Debridement (cm) - Width 2.5 2.5 2 -Total Square (Area) (cm) 6.75 5.75 4 -Tunneling No No No -Undermining/Tunneling No No No -Circular Undermining No No No -Wound/Ulcer Outcome Not Healed Not Healed Not Healed -Ulcer Cleansing Rinsed/ Rinsed/ Rinsed/ Irrigated with Irrigated with Irrigated with Saline Saline Saline -Foul Odor after Cleansing No No No -Bioengineered Tissue No Yes Yes -Type of Bioengineered Tissue Epifix Mesh Epifix Mesh Epifix Mesh -Expiration Date 09/01/29 09/01/29 -Product Lot Number [id number] -Percent Used 100 100 100 -Lot number of Saline Used [id number] -Bleeding Controlled with Pressure Pressure Pressure -Treatment Response Procedure Procedure Procedure Tolerated Well Tolerated Well Tolerated Well -Debridement - Subq, 1st 20sq cm -Debridement - Muscle / Fascia, 1st No No No 20sq cm -Apply Skin Sub - 1st 25 sq cm - Legs 1 1 1 -Apply Skin Sub - each addt'l 25 sq cm - Legs -Epifix Application 1-4 (per sq cm) -Epifix 18mm Disc Application 1-4 -Epifix Mesh Application 1-4 (per sq 11 11 11 cm) Pain Scale: 0-10 Numeric Is Patient Pain Free? Yes Yes Yes 03/23/25 03/30/25 10:15 09:32 Wound Center Nurse 2 LEFT INF LE -Time 10:15 -Correct Patient -Correct Side, Site, Position -Correct Procedure -Procedure Performed No -Type of Procedure -Clinical Debridement -Tissue Removed -Post Debridement (cm) - Length 0 -Post Debridement (cm) - Width 0 -Post Debridement (cm) - Depth 0 -Total Square (Post) (cm) 0 -Area of Debridement (cm) - Length 0 -Area of Debridement (cm) - Width 0 -Total Square (Area) (cm) 0 -Tunneling No -Undermining/Tunneling No -Circular Undermining No -Wound/Ulcer Outcome Healed- Epithelialized -Ulcer Cleansing -Foul Odor after Cleansing -Bioengineered Tissue -Bleeding Controlled with -Treatment Response -Debridement - Subq, 1st 20sq cm LEFT SUP LE -Time 10:16 -Correct Patient -Correct Side, Site, Position -Correct Procedure -Procedure Performed No -Type of Procedure -Clinical Debridement -Tissue Removed -Post Debridement (cm) - Length -Post Debridement (cm) - Width -Post Debridement (cm) - Depth -Total Square (Post) (cm) -Area of Debridement (cm) - Length -Area of Debridement (cm) - Width -Total Square (Area) (cm) -Tunneling -Undermining/Tunneling -Circular Undermining -Wound/Ulcer Outcome Healed- Epithelialized -Ulcer Cleansing -Foul Odor after Cleansing -Bioengineered Tissue -Bleeding Controlled with NA -Treatment Response -Debridement - Subq, 1st 20sq cm LEFT MEDIAL CLUSTER LE -Time 10:16 09:33 -Correct Patient Yes Yes -Correct Side, Site, Position Yes Yes -Correct Procedure Yes Yes -Procedure Performed Yes Yes -Type of Procedure Debridement Debridement -Clinical Debridement Subcutaneous Subcutaneous -Tissue Removed Subcutaneous Subcutaneous -Post Debridement (cm) - Length 1.7 1.5 -Post Debridement (cm) - Width 1.8 1.3 -Post Debridement (cm) - Depth 0.5 0.4 -Total Square (Post) (cm) 3.06 1.95 -Area of Debridement (cm) - Length 1.7 1.5 -Area of Debridement (cm) - Width 1.8 1.3 -Total Square (Area) (cm) 3.06 1.95 -Tunneling No No -Undermining/Tunneling No No -Circular Undermining No No -Wound/Ulcer Outcome Not Healed Not Healed -Ulcer Cleansing Rinsed/ Rinsed/ Irrigated with Irrigated with Saline Saline -Foul Odor after Cleansing No No -Bioengineered Tissue Yes Yes -Type of Bioengineered Tissue Epifix 18mm Disc -Expiration Date 09/01/29 11/30/29 -Product Lot Number [id number] -Percent Used 100 100 -Lot number of Saline Used [id number] -Bleeding Controlled with Pressure Pressure -Treatment Response Procedure Procedure Tolerated Well Tolerated Well -Debridement - Subq, 1st 20sq cm No No -Debridement - Muscle / Fascia, 1st 20sq cm -Apply Skin Sub - 1st 25 sq cm - Legs 1 -Apply Skin Sub - each addt'l 25 sq cm 1 - Legs -Epifix Application 1-4 (per sq cm) 4 -Epifix 18mm Disc Application 1-4 3 -Epifix Mesh Application 1-4 (per sq cm) Pain Scale: 0-10 Numeric Is Patient Pain Free? Yes Yes WC - Nurse 3 - General Ulcer D/C NN Start: 03/02/25 09:31 Freq: Status: Active Protocol: Activity Type Activity Date Activity User E-sign Co-sign Detail Recorded Client Recorded Date Recorded By Document 03/02/25 10:06 DL [id number] 03/02/25 10:08 DL Document 03/09/25 10:16 DL [id number] 03/09/25 10:19 DL Document 03/16/25 09:50 ML [id number] 03/16/25 09:53 ML Document 03/23/25 10:34 DL [id number] 03/23/25 10:35 DL Document 03/30/25 09:56 DS [id number] 03/30/25 10:04 DS 03/02/25 03/09/25 03/16/25 10:06 10:16 09:50 Wound Care Center Nurse 3 LEFT INF LE -Ulcer Cleansing Rinsed/ Irrigated with Saline -Foul Odor after Cleansing No No -Primary Dressing Applied Aquacel Extra Aquacel Extra -Other Dressing Epi EPIFIX -Primary Dressing Covered/Secured with Dry Gauze & Dry Gauze & Dry Gauze & Roll Gauze, Roll Gauze, Roll Gauze, Secured with Secured with Secured with Tape Tape Tape -Other Covering abd -Aquacel Extra 1 1 1 LEFT SUP LE -Ulcer Cleansing Not Cleansed Rinsed/ Irrigated with Saline -Foul Odor after Cleansing No No -Primary Dressing Applied Aquacel Extra -Other Dressing Epi/aquacel ex EPIFIX -Primary Dressing Covered/Secured with Dry Gauze & Dry Gauze & Dry Gauze, Roll Gauze, Roll Gauze, Secured with Secured with Secured with Tape Tape Tape -Other Covering ABD -Aquacel Extra 0 LEFT MEDIAL CLUSTER LE -Ulcer Cleansing Rinsed/ Irrigated with Saline -Foul Odor after Cleansing No No -Primary Dressing Applied Aquacel Extra -Other Dressing Epi/aquacelEX EPIFIX -Primary Dressing Covered/Secured with Dry Gauze & Dry Gauze & Dry Gauze & Roll Gauze, Roll Gauze, Roll Gauze, Secured with Secured with Secured with Tape Tape Tape -Other Covering ABD -Aquacel Extra 1 LLE -Tubular Bandage Double Layer Double Layer Single Layer -Size of Tubigrip Used Size E Size F Size F -Size E ($) 2 -Size F ($) 2 1 Treatment Response Pain Scale: 0-10 Numeric Is Patient Pain Free? Yes Yes Yes WC - Visit Discharge Discharge Condition Stable Stable Ambulatory Status Ambulatory Ambulatory Transportation [employer] 03/23/25 03/30/25 10:34 09:56 Wound Care Center Nurse 3 LEFT INF LE -Ulcer Cleansing -Foul Odor after Cleansing -Primary Dressing Applied -Other Dressing -Primary Dressing Covered/Secured with -Other Covering -Aquacel Extra LEFT SUP LE -Ulcer Cleansing -Foul Odor after Cleansing -Primary Dressing Applied -Other Dressing -Primary Dressing Covered/Secured with -Other Covering -Aquacel Extra LEFT MEDIAL CLUSTER LE -Ulcer Cleansing -Foul Odor after Cleansing No -Primary Dressing Applied Aquacel Extra Aquacel Extra -Other Dressing Epifix abd, kerlix; epifix/adaptic/ steri strips- applied by Droa -Primary Dressing Covered/Secured with Dry Gauze & Roll Gauze, Secured with Tape -Other Covering ABD -Aquacel Extra 1 1 LLE -Tubular Bandage Double Layer Double Layer -Size of Tubigrip Used Size F Size F -Size E ($) -Size F ($) 2 2 Treatment Response Procedure Tolerated Well Pain Scale: 0-10 Numeric Is Patient Pain Free? Yes Yes WC - Visit Discharge Discharge Condition Stable Stable Ambulatory Status Ambulatory Ambulatory Transportation [employer] Additional Wound Tissue Removed: Fibrin Assessment/Plan Assessment/Plan (1) Traumatic skin ulcer with fat layer exposed: CODE(S): L98.492 - Non-pressure chronic ulcer of skin of other sites with fat layer exposed PLAN: Cover the inferior and superior wounds with the dry dressing for the next week to protect new skin otherwise they are discharged and resolved Tubigrip double layer to left leg every day #8 EpiFix was applied to the medial wound base and covered with wound veil and Steri-Strips and a foam dressing covered. Patient was instructed to get a cast Cover to take showers. Patient was instructed not to touch any of the Steri-Strips or lower she is allowed to change the outside dressing if he gets soiled or wet. 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
--- NOTE | 2025-03-31 09:42 | WC ---
PHOTO-LLE 03/30/25
== END 2025-03-31 23:59 | disposition home or self-care (01) ==
LOC: WC 09:15
PROVIDERS: PCP Family Medicine; Referring Provider Family Medicine; Visit Provider Nurse Practitioner
DX: E11.622 Type 2 diabetes mellitus with other skin ulcer (principal); L97.822 Non-pressure chronic ulcer of other part of left lower leg with fat layer exposed; Z79.4 Long term (current) use of insulin; E11.65 Type 2 diabetes mellitus with hyperglycemia; E11.51 Type 2 diabetes mellitus with diabetic peripheral angiopathy without gangrene; M79.89 Other specified soft tissue disorders; R60.0 Localized edema
CPT/HCPCS: 11042; 15271; 15272; Q4186

== ENCOUNTER 2025-04-27 09:00 | Outpatient (RCR) | payer MEDICARE, SELFPAY ==
[2025-04-06 08:58] VITALS: BP 135/65; PULSE 87; RESP 16; TEMP 35.9
--- NOTE | 2025-04-06 10:54 | PN.PCM_ITS ---
History of Present Illness Date of Service: 04/06/25 Chief Complaint: Left leg wound from trauma History of Wound: 69-year-old white female that fell down her carpeted steps December 25 had developed blood blisters over the left leg medially distal half both legs are swollen but the left leg now is more swollen than the right leg she has been trying to take care of them herself with just antibiotic ointments but then they opened and she is got dark and eschar on them and followed up with her family doctor that referred her here and started her on doxycycline told her to stay on it until seen. She is also diabetic and on insulin and Ozempic and other meds that would not interfere with treatment or healing. Progress of Wound: Measurements are much smaller again she still has that small divot that needs to be filled [place]. She is leaving for [place] for 10 days so we will leave this EpiFix #8 on and then she can remove it in a week week and a half on her own and then she can start doing we will give her other dressings to use on the trip that she can do like every other day or every 2 days depending on what her bathing pattern is and follow-up in 3 weeks. No sign of infection no swelling she has no pain it is healing well Subjective Subjective Patient is pleased with outcomes and will be able to do the dressing after she takes off the EpiFix. Objective Data Objective Data Again no sign of infection healing well smaller in measurements continue using EpiFix #8 Vital Signs: Vital Signs Temp Pulse Resp BP 96.6 F L 87 16 135/65 H 04/06/25 08:58 04/06/25 08:58 04/06/25 08:58 04/06/25 08:58 Physical Exam Const oriented x3 General Appearance: cooperative Exam Limitations: no limitations HEENT normocephalic Head and Scalp: normal to inspection Face and Sinus: normal facial exam Eyes General Eye: normal appearance of both eyes Neck full ROM General: normal visual inspection Resp normal respiratory effort Effort and Inspection: able to speak in complete sentences Auscultation: clear to auscultation bilaterally Cardio regular rate and regular rhythm Palpation: normal PMI Rate: regular rate Rhythm: regular rhythm GI Palpation: soft and no hepatosplenomegaly Back/Spine Cervical Spine: cervical ROM normal Thoracic Spine / Upper Back: normal to inspection Lumbar Spine / Lower Back: normal to inspection Extremity General Extremity: normal exam except as noted, edema and other findings Other Details: Open wounds x 3 left lower leg Skin no rashes or lesions noted Skin Narrative: Open wounds medial superior and inferior left lower leg with eschar and darkened erythema around the wound base. Legs are extremely edematous left greater than right. Neuro oriented x3 Psych Appearance: grossly normal Speech: normal speech Thought Content: normal thought content Judgement: judgement good Debridement Note Debridement Note Wound debrided: Medial left lower leg wound traumatic Type of Debridement: Excisional debridement Anesthesia Used: 5% Lidocaine Gel Depth: in the subcutaneous layer Percentage of wound debrided: 100 Instrument Used: 3mm curette Tissue Removed: Fibrin Severity: Fat Layer Exposed Amount of bleeding with debridement: None Bleeding Controlled with: Compression and gauze Patient tolerated procedure: Patient tolerated procedure well Post-Debridement Measurements and Additional Note: Post-Debridement Measurements/Treatment WC - Nurse 1 - General Ulcer Assessment Start: 04/06/25 08:58 Freq: Status: Active Protocol: KITTY Activity Type Activity Date Activity User E-sign Co-sign Detail Recorded Client Recorded Date Recorded By Document 04/06/25 08:58 DL [id number] 04/06/25 09:08 DL 04/06/25 08:58 WC - Today's Visit Information Type of service Follow-up Visit (Physician/TERMITE EXTERMINATOR ) Arrival Mode Ambulatory Transfer Assistance None Patient Identification Verified (Name & Yes ) Patient Requires Transmission-Based No Precautions Vital Signs Temperature (97.8 F-99.1 F) 96.6 F L Temperature Source Temporal Pulse Rate (60-100) 87 Pulse Location Monitor Respiratory Rate (12-18) 16 Respiratory rate source Observation Blood Pressure (90/60-120/80) 135/65 H Blood Pressure Mean (mm Hg) 88 Source Monitor History Since Last Visit- (Skip if this is Patient's initial visit) Have you changed medications since your No last visit? Any new allergies or adverse reactions No Had a fall/change in ADL's that may No increase risk of falls Signs or symptoms of abuse and/or No neglect since last visit Have you been in the hospital since your No last visit? Has dressing in place as prescribed Yes Has compression in place as prescribed Yes Has offloadiing in place as prescribed No Experienced any changes in pain level or No management Pain Scale: 0-10 Numeric Is Patient Pain Free? Yes - Nurse 1 - General Ulcer Measurement Start: 04/06/25 08:58 Freq: Status: Active Protocol: Activity Type Activity Date Activity User E-sign Co-sign Detail Recorded Client Recorded Date Recorded By Document 04/06/25 08:58 [email or web address] [id number] 04/06/25 09:08 DL 04/06/25 08:58 Wound Center Nurse 1 LEFT MEDIAL CLUSTER LE -Current Size (cm) - Length 0.7 -Current Size (cm) - Width 0.7 -Current Size (cm) - Depth 0.4 -Total Square Cm 0.49 -Exudate Amt Small -Exudate Type Serosanguineous -Wound Margin Distinct, Outline Attached -Granulation Quality Red -Necrosis Amt Small (1-33%) -Necrotic Tissue Type Adherent Slough -Structure Exposed N/A -Texture (Renuka-wound Skin Appearance) Scarring -Moisture (Renuka-wound Skin Appearance) No Abnormality -Color (Renuka-wound Skin Appearance) Hemosiderin Staining -Temperature (Renuka-wound Skin No Abnormality Appearance) (Pt Warm) -Ulcer Cleansing Soap and Water -Foul Odor after Cleansing No -Anesthetic Used 5% Lidocaine Gel WC - Nurse 2 - General Ulcer CM Notes Start: 04/06/25 08:58 Freq: Status: Active Protocol: Activity Type Activity Date Activity User E-sign Co-sign Detail Recorded Client Recorded Date Recorded By Document 04/06/25 09:17 DS [id number] 04/06/25 09:26 DS 04/06/25 09:17 Wound Center Nurse 2 -Time 09:17 -Correct Patient Yes -Correct Side, Site, Position Yes -Correct Procedure Yes -Procedure Performed Yes -Type of Procedure Debridement -Clinical Debridement Subcutaneous -Tissue Removed Subcutaneous -Post Debridement (cm) - Length 1.0 -Post Debridement (cm) - Width 1.0 -Post Debridement (cm) - Depth 0.3 -Total Square (Post) (cm) 1.00 -Area of Debridement (cm) - Length 1.0 -Area of Debridement (cm) - Width 1.0 -Total Square (Area) (cm) 1.00 -Tunneling No -Undermining/Tunneling No -Circular Undermining No -Wound/Ulcer Outcome Not Healed -Ulcer Cleansing Rinsed/ Irrigated with Saline -Foul Odor after Cleansing No -Bioengineered Tissue No -Type of Bioengineered Tissue Epifix 18mm Disc -Expiration Date 11/30/29 -Product Lot Number [id number] -Percent Used 100 -Lot number of Saline Used [id number] -Bleeding Controlled with Pressure -Treatment Response Procedure Tolerated Well -Debridement - Subq, 1st 20sq cm No -Apply Skin Sub - 1st 25 sq cm - Legs 1 -Epifix 18mm Disc Application 1-4 3 Pain Scale: 0-10 Numeric Is Patient Pain Free? Yes WC - Nurse 3 - General Ulcer D/C NN Start: 04/06/25 08:58 Freq: Status: Active Protocol: Activity Type Activity Date Activity User E-sign Co-sign Detail Recorded Client Recorded Date Recorded By Document 04/06/25 09:42 DL [id number] 04/06/25 09:43 DL 04/06/25 09:42 Wound Care Center Nurse 3 LEFT MEDIAL CLUSTER LE -Ulcer Cleansing Not Cleansed -Primary Dressing Applied Aquacel Extra -Other Dressing Epifix -Primary Dressing Covered/Secured with Dry Gauze & Roll Gauze, Secured with Tape -Aquacel Extra 1 LLE -Tubular Bandage Double Layer -Size of Tubigrip Used Size E -Size E ($) 2 Treatment Response Procedure Tolerated Well Pain Scale: 0-10 Numeric Is Patient Pain Free? Yes WC - Visit Discharge Discharge Condition Stable Ambulatory Status Ambulatory Transportation [employer] Assessment/Plan Assessment/Plan (1) Traumatic skin ulcer with fat layer exposed: CODE(S): L98.492 - Non-pressure chronic ulcer of skin of other sites with fat layer exposed PLAN: Cover the inferior and superior wounds with the dry dressing for the next week to protect new skin otherwise they are discharged and resolved Tubigrip double layer to left leg every day #9 EpiFix was applied to the medial wound base and covered with wound veil and Steri-Strips and a foam dressing covered. Patient was instructed to get a cast Cover to take showers. Patient was instructed not to touch any of the Steri- Strips or lower she is allowed to change the outside dressing if he gets soiled or wet. In about a week and a half she can take the dressing off while on vacation and start using Aquacel extra moistened with Adaptic over top with a SAP absorbent dressing. She can change that every other day if she is not really doing anything but compression is very important for her while she travels Patient instructed to follow-up in 3 (2) Type 2 diabetes mellitus with hyperglycemia: CODE(S): E11.65 - Type 2 diabetes mellitus with hyperglycemia QUALIFIERS: Diabetes mellitus terminal superintendent insulin use: without terminal superintendent use Qualified Code(s): E11.65 - Type 2 diabetes mellitus with hyperglycemia (3) Lower extremity edema: CODE(S): R60.0 - Localized edema (4) Peripheral vascular disease: CODE(S): I73.9 - Peripheral vascular disease, unspecified (5) Nonhealing nonsurgical wound with fat layer exposed: CODE(S): T14.8XXA - Other injury of unspecified body region, initial encounter (6) 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
[2025-04-27 10:52] VITALS: BP 153/75; PULSE 83; RESP 18; TEMP 35.8
--- NOTE | 2025-04-27 11:53 | PCM.WC.PN ---
History of Present Illness Date of Service: 04/27/25 Chief Complaint: Left leg wound from trauma History of Wound: 69-year-old white female that fell down her carpeted steps December 25 had developed blood blisters over the left leg medially distal half both legs are swollen but the left leg now is more swollen than the right leg she has been trying to take care of them herself with just antibiotic ointments but then they opened and she is got dark and eschar on them and followed up with her family doctor that referred her here and started her on doxycycline told her to stay on it until seen. She is also diabetic and on insulin and Ozempic and other meds that would not interfere with treatment or healing. Progress of Wound: Right lower leg wound is completely healed and patient will be discharged from the wound center Subjective Subjective Patient very pleased with outcomes Objective Data Objective Data No sign of infection skin is well-approximated no redness no discharge. Patient will be discharged from the wound center and follow-up as needed She was encouraged to continue wearing her compression pression stockings. Vital Signs: Vital Signs Temp Pulse Resp BP 96.4 F L 83 18 153/75 H 04/27/25 10:52 04/27/25 10:52 04/27/25 10:52 04/27/25 10:52 Physical Exam Const oriented x3 General Appearance: cooperative Exam Limitations: no limitations HEENT normocephalic Head and Scalp: normal to inspection Face and Sinus: normal facial exam Eyes General Eye: normal appearance of both eyes Neck full ROM General: normal visual inspection Resp normal respiratory effort Effort and Inspection: able to speak in complete sentences Auscultation: clear to auscultation bilaterally Cardio regular rate and regular rhythm Palpation: normal PMI Rate: regular rate Rhythm: regular rhythm GI Palpation: soft and no hepatosplenomegaly Back/Spine Cervical Spine: cervical ROM normal Thoracic Spine / Upper Back: normal to inspection Lumbar Spine / Lower Back: normal to inspection Extremity General Extremity: normal exam except as noted, edema and other findings Other Details: Open wounds x 3 left lower leg Skin no rashes or lesions noted Skin Narrative: Open wounds medial superior and inferior left lower leg with eschar and darkened erythema around the wound base. Legs are extremely edematous left greater than right. Neuro oriented x3 Psych Appearance: grossly normal Speech: normal speech Thought Content: normal thought content Judgement: judgement good Debridement Note Debridement Note No debridement was completed: No debridement was completed today Post-Debridement Measurements and Additional Note: Post-Debridement Measurements/Treatment WC - Nurse 1 - General Ulcer Assessment Start: 04/06/25 08:58 Freq: Status: Active Protocol: KITTY Activity Type Activity Date Activity User E-sign Co-sign Detail Recorded Client Recorded Date Recorded By Document 04/06/25 08:58 DL [id number] 04/06/25 09:08 DL Document 04/27/25 10:52 RB [id number] 04/27/25 10:54 RB 04/06/25 04/27/25 08:58 10:52 WC - Today's Visit Information Type of service Follow-up Visit Follow-up Visit (Physician/[facility] (Physician/[facility] ) ) Arrival Mode Ambulatory Ambulatory Transfer Assistance None None Patient Identification Verified (Name & Yes Yes ) Patient Requires Transmission-Based No No Precautions Vital Signs Temperature (97.8 F-99.1 F) 96.6 F L 96.4 F L Temperature Source Temporal Temporal Pulse Rate (60-100) 87 83 Pulse Location Monitor Monitor Respiratory Rate (12-18) 16 18 Respiratory rate source Observation Observation Blood Pressure (90/60-120/80) 135/65 H 153/75 H Blood Pressure Mean (mm Hg) 88 101 Source Monitor Monitor Position Semi-Fowlers Blood Pressure Location Left Arm History Since Last Visit- (Skip if this is Patient's initial visit) Have you changed medications since your No No last visit? Any new allergies or adverse reactions No No Had a fall/change in ADL's that may No No increase risk of falls Signs or symptoms of abuse and/or No No neglect since last visit Have you been in the hospital since your No No last visit? Has dressing in place as prescribed Yes Yes Has compression in place as prescribed Yes Yes Has offloadiing in place as prescribed No N/A Experienced any changes in pain level or No No management Pain Scale: 0-10 Numeric Is Patient Pain Free? Yes Yes PRAVEEN - Nurse 1 - General Ulcer Measurement Start: 04/06/25 08:58 Freq: Status: Active Protocol: Activity Type Activity Date Activity User E-sign Co-sign Detail Recorded Client Recorded Date Recorded By Document 04/06/25 08:58 DL [id number] 04/06/25 09:08 DL Document 04/27/25 10:52 RB [id number] 04/27/25 10:54 RB 04/06/25 04/27/25 08:58 10:52 Wound Center Nurse 1 LEFT MEDIAL CLUSTER LE -Combined with other wound No -Current Size (cm) - Length 0.7 0.1 -Current Size (cm) - Width 0.7 0.1 -Current Size (cm) - Depth 0.4 0.1 -Total Square Cm 0.49 0.01 -Photo Taken Yes -Tunneling No -Undermining/Tunneling No -Circular Undermining No -Exudate Amt Small Medium -Exudate Type Serosanguineous Serosanguineous -Wound Margin Distinct, Distinct, Outline Outline Attached Attached -Granulation Amt Medium (34-66%) -Granulation Quality [place] -Slough/Fibrin Yes -Necrosis Amt Small (1-33%) Medium (34-66%) -Necrotic Tissue Type Adherent Slough Adherent Slough -Structure Exposed N/A N/A -Texture (Renuka-wound Skin Appearance) Scarring Assessed, Scarring -Moisture (Renuka-wound Skin Appearance) No Abnormality Assessed -Color (Renuka-wound Skin Appearance) Hemosiderin Assessed Staining -Temperature (Renuka-wound Skin No Abnormality No Abnormality Appearance) (Pt Warm) (Pt Warm) -Tenderness on Palpation (Renuka-wound No Skin Appearance) -Ulcer Cleansing Soap and Water Wound Cleanser -Foul Odor after Cleansing No No -Anesthetic Used 5% Lidocaine 5% Lidocaine Gel Gel Lower Limb Edema Present Yes Right Calf (cm) 46.8 Right Ankle (cm) 27.2 WC - Nurse 2 - General Ulcer CM Notes Start: 04/06/25 08:58 Freq: Status: Active Protocol: Activity Type Activity Date Activity User E-sign Co-sign Detail Recorded Client Recorded Date Recorded By Document 04/06/25 09:17 DS [id number] 04/06/25 09:26 DS Document 04/27/25 11:05 [facility] [id number] 04/27/25 11:12 [facility] 04/06/25 04/27/25 09:17 11:05 Wound Center Nurse 2 LEFT MEDIAL CLUSTER LE -Time 09:17 11:05 -Correct Patient Yes Yes -Correct Side, Site, Position Yes Yes -Correct Procedure Yes Yes -Procedure Performed Yes Yes -Type of Procedure Debridement Debridement -Clinical Debridement Subcutaneous Subcutaneous -Tissue Removed Subcutaneous Subcutaneous -Post Debridement (cm) - Length 1.0 0.1 -Post Debridement (cm) - Width 1.0 0.1 -Post Debridement (cm) - Depth 0.3 0.1 -Total Square (Post) (cm) 1.00 0.01 -Area of Debridement (cm) - Length 1.0 0.1 -Area of Debridement (cm) - Width 1.0 0.1 -Total Square (Area) (cm) 1.00 0.01 -Tunneling No No -Undermining/Tunneling No No -Circular Undermining No No -Wound/Ulcer Outcome Not Healed Not Healed -Ulcer Cleansing Rinsed/ Rinsed/ Irrigated with Irrigated with Saline Saline -Foul Odor after Cleansing No No -Bioengineered Tissue No No -Type of Bioengineered Tissue Epifix 18mm Disc -Expiration Date 11/30/29 -Product Lot Number [id number] -Percent Used 100 -Lot number of Saline Used [id number] -Bleeding Controlled with Pressure Pressure,Silver Nitrate ($) -Treatment Response Procedure Procedure Tolerated Well Tolerated Well -Debridement - Subq, 1st 20sq cm No Yes -Apply Skin Sub - 1st 25 sq cm - Legs 1 -Epifix 18mm Disc Application 1-4 3 Pain Scale: 0-10 Numeric Is Patient Pain Free? Yes Yes WC - Nurse 3 - General Ulcer D/C NN Start: 04/06/25 08:58 Freq: Status: Active Protocol: Activity Type Activity Date Activity User E-sign Co-sign Detail Recorded Client Recorded Date Recorded By Document 04/06/25 09:42 DL [id number] 04/06/25 09:43 DL Document 04/27/25 11:27 RB [id number] 04/27/25 11:30 RB 04/06/25 04/27/25 09:42 11:27 Wound Care Center Nurse 3 LEFT MEDIAL CLUSTER LE -Ulcer Cleansing Not Cleansed Rinsed/ Irrigated with Saline -Primary Dressing Applied Aquacel Extra NonAdherent Contact Layer, Silicone Border Foam 4x4 -Other Dressing Epifix -Primary Dressing Covered/Secured with Dry Gauze & Roll Gauze, Secured with Tape -Aquacel Extra 1 -Silicone Border Foam 4x4 1 LLE -Tubular Bandage Double Layer Double Layer -Size of Tubigrip Used Size E Size F -Size E ($) 2 -Size F ($) 2 Treatment Response Procedure Procedure Tolerated Well Tolerated Well Pain Scale: 0-10 Numeric Is Patient Pain Free? Yes Yes WC - Visit Discharge Discharge Condition Stable Stable Ambulatory Status Ambulatory Ambulatory Transportation Private Auto Private Auto Medication Reconcilliation completed & No provided to patient/care provider Clinical Summary of Care Provided Yes Assessment/Plan Assessment/Plan (1) Peripheral vascular disease: CODE(S): I73.9 - Peripheral vascular disease, unspecified (2) Type 2 diabetes mellitus with hyperglycemia: CODE(S): E11.65 - Type 2 diabetes mellitus with hyperglycemia QUALIFIERS: Diabetes mellitus intermediate designer insulin use: without retirement use Qualified Code(s): E11.65 - Type 2 diabetes mellitus with hyperglycemia (3) Traumatic skin ulcer with fat layer exposed: CODE(S): L98.492 - Non-pressure chronic ulcer of skin of other sites with fat layer exposed PLAN: Patient will be discharged from the wound center and can follow-up as needed
--- NOTE | 2025-04-27 13:23 | WC ---
PHOTO-LLE 04/27/25
== END 2025-05-01 23:59 | disposition home or self-care (01) ==
LOC: WC 09:00
PROVIDERS: PCP Family Medicine; Referring Provider Family Medicine; Visit Provider Nurse Practitioner
DX: E11.622 Type 2 diabetes mellitus with other skin ulcer (principal); L97.822 Non-pressure chronic ulcer of other part of left lower leg with fat layer exposed; Z79.4 Long term (current) use of insulin; E11.51 Type 2 diabetes mellitus with diabetic peripheral angiopathy without gangrene; E11.65 Type 2 diabetes mellitus with hyperglycemia; Z79.85 Long-term (current) use of injectable non-insulin antidiabetic drugs; R60.0 Localized edema
CPT/HCPCS: 11042; 15271; Q4186